=== PATIENT | female | born 1980 | race Caucasian/White ===

== ENCOUNTER → 2017-10-16 13:54 | Outpatient (CLI) | payer MEDICARE, MEDICAID, SELFPAY ==
[2017-10-16 14:52] LABS: Abs Immature Grans 0.02 k/cumm (0.0-0.09); Absolute Basophil Count 0.03 k/cumm (0.0-0.2); Absolute Eosinophil Count 0.29 k/cumm (0.0-0.7); Absolute Lymphocyte Count 1.88 k/cumm (1.2-3.4); Absolute Monocyte Count 0.45 k/cumm (0.11-0.7); Absolute Neutrophil Count 8.32 k/cumm (1.2-6.7); Basophils % 0.3; Eosinophils % 2.6; HCT 42.4 % (36.0-46.0); HGB 14.5 g/dL (12.0-15.5); Immature Grans % 0.2; Lymphocytes % 17.1; Mean Corp. HGB Concentration 34.2 g/dL (32.0-36.0); Mean Corpuscular Hemoglobin 32.1 pg (27.0-33.0); Mean Corpuscular Volume 93.8 fL (80-95); Mean Platelet Volume 9.7 fL (8.0-11.0); Monocytes % 4.1; Neutrophils % 75.7; Platelet Count 337 x1000/uL (130-400); RBC 4.52 m/cumm (4.00-5.20); RBC Distribution Width 13.5 % (11.7-14.6); White Blood Cell Count 10.99 k/cumm (4.4-10.8)
== END ==
PROVIDERS: PCP Family Medicine; Visit Provider Nurse Practitioner Psychiatric/Mental Health
DX: F20.9 Schizophrenia, unspecified (principal); Z79.899 Other long term (current) drug therapy
CPT/HCPCS: 36415; 85025

== ENCOUNTER 2017-11-08 12:37 | Outpatient (REF) | payer MEDICARE, SELFPAY | END 2017-11-08 12:57 | LOC: NCHCN 12:37 | PROVIDERS: PCP Family Medicine; Visit Provider Family Medicine | DX: A09 Infectious gastroenteritis and colitis, unspecified (principal) | CPT/HCPCS: 87505 ==

== ENCOUNTER 2017-11-20 14:21 | Outpatient (CLI) | payer MEDICARE, MEDICAID, SELFPAY ==
[2017-11-20 14:56] LABS: Abs Immature Grans 0.02 k/cumm (0.0-0.09); Absolute Basophil Count 0.06 k/cumm (0.0-0.2); Absolute Eosinophil Count 0.21 k/cumm (0.0-0.7); Absolute Monocyte Count 0.67 k/cumm (0.11-0.7); Absolute Neutrophil Count 7.44 k/cumm (1.2-6.7); Basophils % 0.6; HCT 44.7 % (36.0-46.0); HGB 15.5 g/dL (12.0-15.5); Immature Grans % 0.2; Lymphocytes % 18.4; Mean Corp. HGB Concentration 34.7 g/dL (32.0-36.0); Mean Corpuscular Hemoglobin 32.4 pg (27.0-33.0); Mean Corpuscular Volume 93.3 fL (80-95); Monocytes % 6.5; Neutrophils % 72.3; Platelet Count 403 x1000/uL (130-400); RBC 4.79 m/cumm (4.00-5.20); RBC Distribution Width 14.2 % (11.7-14.6)
== END 2017-11-20 14:41 ==
PROVIDERS: PCP Family Medicine; Visit Provider Nurse Practitioner Psychiatric/Mental Health
DX: F20.9 Schizophrenia, unspecified (principal); Z79.899 Other long term (current) drug therapy
CPT/HCPCS: 36415; 85025

== ENCOUNTER 2017-12-19 11:00 | Outpatient (CLI) | payer MEDICARE, MEDICAID, SELFPAY ==
[2017-12-19 14:24] LABS: Abs Immature Grans 0.05 k/cumm (0.0-0.09); Absolute Basophil Count 0.04 k/cumm (0.0-0.2); Absolute Lymphocyte Count 1.61 k/cumm (1.2-3.4); Absolute Monocyte Count 0.61 k/cumm (0.11-0.7); Basophils % 0.3; Eosinophils % 0.9; HCT 45.8 % (36.0-46.0); HGB 15.6 g/dL (12.0-15.5); Immature Grans % 0.4; Lymphocytes % 11.5; Mean Corp. HGB Concentration 34.1 g/dL (32.0-36.0); Mean Corpuscular Hemoglobin 32.8 pg (27.0-33.0); Mean Corpuscular Volume 96.4 fL (80-95); Mean Platelet Volume 9.8 fL (8.0-11.0); Monocytes % 4.4; Neutrophils % 82.5; Platelet Count 359 x1000/uL (130-400); RBC 4.75 m/cumm (4.00-5.20); RBC Distribution Width 14.1 % (11.7-14.6); White Blood Cell Count 13.97 k/cumm (4.4-10.8)
[2017-12-19 14:30] LABS: Absolute Eosinophil Count 0.13 k/cumm (0.0-0.7); Absolute Neutrophil Count 11.53 k/cumm (1.2-6.7)
== END 2017-12-19 11:20 ==
PROVIDERS: PCP Family Medicine; Visit Provider Nurse Practitioner Psychiatric/Mental Health
DX: F20.9 Schizophrenia, unspecified (principal); Z79.899 Other long term (current) drug therapy
CPT/HCPCS: 36415; 85025

== ENCOUNTER 2017-12-28 12:54 | Emergency (ER) | payer MEDICARE, MEDICAID, SELFPAY ==
[2017-12-28 12:57] VITALS: BP 122/76; PULSE 126; RESP 20; TEMP 36.6; O2SAT 99
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
--- NOTE | 2017-12-28 13:38 | PDOC.ERCMPRO ---
Care Management Progress Note 12/28-Vimal was sent to the emergency department today as she is depressed. Per nursing, Vimal has fresh lacerations with minimal bleeding to her wrists. Please see nursing and provider note. Discussion with Dominga NOLASCO and nursing. Dominga has ordered a CPSO for patient. Dominga is concerned patient could potentially be a flight risk. Discussed emergent holding care plan. 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 History of paranoid schizophrenia and receives meds weekly from [facility]. Patients therapist is Daniel Duong. Patient was admitted to [facility] in July 2017 for an intentional drug overdose. Nruys from [facility] called in and stated once Vimal is medically cleared, she will come in and do an assessment and fax a referral to [place]. Terri states that [place] has a bed. Reviewed Care Plan with Vimal and she acknowledged understanding and in agreement. Care Plan distributed to appropriate Care Team members. Vimal Pimentel Emergent Holding Care Plan 12/28/17 1. Suicide Precautions 2. Patient to be in paper clothing 3. Comfort bath system for personal hygiene 4. No personal belongings in room 5. Finger foods only, may have metal spoon, nursing to account for post meals 6. May have phone privileges 7. Visitors at provider discretion 8. Supervised Bathroom Privileges 9. Patient to have one on one, licensed sitter, MARIO, MOLECULAR GENETIC PATHOLOGIST, carbon electrodes supervisor. 10. May have television if available 11. May have crayons, paper, and activities (if appropriate) from the Mental Health Activity Cart in ED This is a holding care plan only. This Care Plan will remain in effect until patient medically cleared and mental health is called in for evaluation. Once evaluation completed, huddle will be called and new care plan will be written.
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
[2017-12-28 13:45] LABS: Bilirubin Negative (Negative); Blood Negative (Negative); Clarity Clear; Glucose Negative (Negative); Ketones Negative (Negative); Leukocyte Esterase Negative (Negative); Nitrite Negative (Negative); Urobilinogen 0.2 EU/dL (Up TO 0.2)
--- NOTE | 2017-12-28 13:49 | CMPROGNOTE_ITS ---
Care Management Progress Note 12/28-Vimal was sent to the emergency department today as she is depressed. Per nursing, Vimal has fresh lacerations with minimal bleeding to her wrists. Please see nursing and provider note. Discussion with Dominga NOLASCO and nursing. Dominga has ordered a CPSO for patient. Dominga is concerned patient could potentially be a flight risk. Discussed emergent holding care plan. 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 History of paranoid schizophrenia and receives meds weekly from [facility]. Patients therapist is Daniel Duong. Patient was admitted to [facility] in July 2017 for an intentional drug overdose. Nurys from [facility] called in and stated once Vimal is medically cleared, she will come in and do an assessment and fax a referral to [facility]. Terri states that [facility] has a bed. Reviewed Care Plan with Vimal and she acknowledged understanding and in agreement. Care Plan distributed to appropriate Care Team members. Vimal Pimentel Emergent Holding Care Plan 12/28/17 1. Suicide Precautions 2. Patient to be in paper clothing 3. Comfort bath system for personal hygiene 4. No personal belongings in room 5. Finger foods only, may have metal spoon, nursing to account for post meals 6. May have phone privileges 7. Visitors at provider discretion 8. Supervised Bathroom Privileges 9. Patient to have one on one, licensed sitter, MARIO, CORE DRILL OPERATOR, chlorobutadiene scrubber operator. 10. May have television if available 11. May have crayons, paper, and activities (if appropriate) from the Mental Health Activity Cart in ED This is a holding care plan only. This Care Plan will remain in effect until patient medically cleared and mental health is called in for evaluation. Once evaluation completed, huddle will be called and new care plan will be written.
[2017-12-28 13:55] LABS: *AMPHETAMINES SCREEN URINE Negative (Negative); *BARBITURATES SCREEN URINE Negative (Negative); *BENZODIAZEPINES SCREEN URINE Negative (Negative); Cannabinoids THC Negative (Negative); Cocaine Screen,Urine Negative (Negative); METHADONE URINE SCREEN Negative (Negative); OPIATES URINE SCREEN Negative (Negative)
[2017-12-28 13:59] LABS: Tricyclic Antidepressants Negative (Negative)
--- NOTE | 2017-12-28 14:13 | NUR.NOTE ---
Nursing Note: Patient is awake in her room she was provided with a lunch on a safety tray.
[2017-12-28 14:18] LABS: Abs Immature Grans 0.02 k/cumm (0.0-0.09); Absolute Basophil Count 0.04 k/cumm (0.0-0.2); Absolute Eosinophil Count 0.08 k/cumm (0.0-0.7); Absolute Lymphocyte Count 1.35 k/cumm (1.2-3.4); Absolute Monocyte Count 0.52 k/cumm (0.11-0.7); Absolute Neutrophil Count 9.03 k/cumm (1.2-6.7); Basophils % 0.4; Eosinophils % 0.7; HGB 15.1 g/dL (12.0-15.5); Immature Grans % 0.2; Lymphocytes % 12.2; Mean Corp. HGB Concentration 34.3 g/dL (32.0-36.0); Mean Corpuscular Hemoglobin 32.8 pg (27.0-33.0); Mean Corpuscular Volume 95.4 fL (80-95); Mean Platelet Volume 9.5 fL (8.0-11.0); Monocytes % 4.7; Neutrophils % 81.8; Platelet Count 351 x1000/uL (130-400); RBC 4.61 m/cumm (4.00-5.20); RBC Distribution Width 13.8 % (11.7-14.6); White Blood Cell Count 11.04 k/cumm (4.4-10.8)
[2017-12-28 14:33] LABS: ALT 28 U/L (12-78); AST 16 U/L (15-37); Albumin 3.5 g/dL (3.4-5.0); Alkaline Phosphatase 153 U/L (46-116); Anion Gap 12.6 mmol/L (3-11); BUN 6 mg/dL (7-18); Bilirubin, Total 0.2 mg/dL (0.2-1.0); CO2 24.4 mmol/L (21.0-32.0); CREATININE 0.64 mg/dL (0.55-1.02); Chloride 104 mmol/L (98-107); Glucose 96 mg/dL (70-100); Potassium 3.8 mmol/L (3.5-5.1); Sodium 141 mmol/L (136-145); TSH 1.12 uIU/mL (0.358-3.74); Total Protein 6.6 g/dL (6.4-8.2)
[2017-12-28 14:54] LABS: ETHANOL BLOOD < 3.0 mg/dL (<3)
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
[2017-12-28 15:07] LABS: Acetaminophen < 2 ug/mL (10-30)
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
--- NOTE | 2017-12-28 16:45 | PDOC.ERCMPRO ---
- If Service Date Differs Date of service: 12/28/17 Time of Service: 16:45 Care Management Progress Note Vimal Pimentel; ER RM #9 12/28/17 VOLUNTARY FOR INPATIENT PSYCHIATRIC STABILIZATION. Vimal has been cooperative and appropriate in all interactions since arriving at [facility]. She has demonstrated appropriate coping and communication skills, has articulated her needs and concerns and is fully engaged during staff interactions. Vimal has multiple cuts to her anterior right wrist which have been cleaned and wrapped. Dyana?s car is parked in the lower [facility] parking lot. Her multiple bags of belongings are at the ER staff desk and should be transported with her when she discharges. Vimal will transport via [employer]. Huddle Participants: CONSTANCE Orr, Laura, VU CHAUHAN, Mireya, Nursing Region Manager, APPLE Murray. Time and Date: 163912/28/2017 Safety plan has been established with patient and care team to adhere to patient goals, identify restrictions based on behavioral status, address nutrition, and determine allowed personal belongings, tools for hygiene, and personal care. Levels of activity including ambulation, supervision, visitors, and privileges based on behaviors and level of engagement by patient to be determined. SAFETY PLAN: 1. Suicide Precautions and in paper clothes. 2. Will remain in room under direct supervision of one-on-one staff at all times provided by MARIO, GIN gear repair supervisor. 3. Comfort bath system for personal hygiene. 4. No personal belongings in room. 5. May have paper cups, plates, and finger foods. 6.May have supervised phone privileges with Liz Patterson. 7.Visitors at provider discretion. 8.Supervised bathroom privileges. 9.May have ER Tablet and nicotrol inhaler. 10.May have crayons, paper, and activities (if appropriate) from the Mental Health Activity Cart in ED. 11. Follow [facility] Management of the Admitted Behavioral Health Patient policy printed and attached to the safety plan in physical chart. [facility] will be coordinating placement at inpatient facility. Patient is currently voluntarily at [facility] and seeking inpatient admission when a bed becomes available. [facility] Frontline Nurse Transition will continue seeking placement. Please contact the On-Call Shovel Handle Assembler ([phone]) and [facility] Nurse Transition ([phone]) for any needed changes in the Safety Plan. Safety plan has been provided to interdepartmental care team including Clinical Coordinator, Nursing Region Manager. - MH Services (Omit if N/A) Current MH Services: Psychiatric Inp
--- NOTE | 2017-12-28 16:48 | CMPROGNOTE_ITS ---
- If Service Date Differs Date of service: 12/28/17 Time of Service: 16:45 Care Management Progress Note Vimal Pimentel; ER RM #9 12/28/17 VOLUNTARY FOR INPATIENT PSYCHIATRIC STABILIZATION. Vimal has been cooperative and appropriate in all interactions since arriving at [facility]. She has demonstrated appropriate coping and communication skills, has articulated her needs and concerns and is fully engaged during staff interactions. Vimal has multiple cuts to her anterior right wrist which have been cleaned and wrapped. Dyana?s car is parked in the lower [facility] parking lot. Her multiple bags of belongings are at the ER staff desk and should be transported with her when she discharges. Vimal will transport via [employer]. Huddle Participants: CONSTANCE Orr, Laura, VU CHAUHAN, Mireya, Nursing Color Corrector, APPLE Murray. Time and Date: 163912/28/2017 Safety plan has been established with patient and care team to adhere to patient goals, identify restrictions based on behavioral status, address nutrition, and determine allowed personal belongings, tools for hygiene, and personal care. Levels of activity including ambulation, supervision, visitors, and privileges based on behaviors and level of engagement by patient to be determined. SAFETY PLAN: 1. Suicide Precautions and in paper clothes. 2. Will remain in room under direct supervision of one-on-one staff at all times provided by MARIO, GIN electronic coils supervisor. 3. Comfort bath system for personal hygiene. 4. No personal belongings in room. 5. May have paper cups, plates, and finger foods. 6.May have supervised phone privileges with Liz Patterson. 7.Visitors at provider discretion. 8.Supervised bathroom privileges. 9.May have ER Tablet and nicotrol inhaler. 10.May have crayons, paper, and activities (if appropriate) from the Mental Health Activity Cart in ED. 11. Follow [facility] Management of the Admitted Behavioral Health Patient policy printed and attached to the safety plan in physical chart. [facility] will be coordinating placement at inpatient facility. Patient is currently voluntarily at [facility] and seeking inpatient admission when a bed becomes available. [facility] Frontline Environmental Health Physician will continue seeking placement. Please contact the On-Call Milk And Cream Grader ([phone]) and [facility] Environmental Health Physician ([phone]) for any needed changes in the Safety Plan. Safety plan has been provided to interdepartmental care team including Clinical Coordinator, Nursing Color Corrector. - MH Services (Omit if N/A) Current MH Services: Psychiatric Inp
--- NOTE | 2017-12-28 19:35 | CMPROGNOTE_ITS ---
- If Service Date Differs Date of service: 12/28/17 Time of Service: 19:34 Care Management Progress Note Vimal Pimentel; ER RM #9 12/28/17 VOLUNTARY FOR INPATIENT PSYCHIATRIC STABILIZATION. Vimal has been cooperative and appropriate in all interactions since arriving at [facility]. She has demonstrated appropriate coping and communication skills, has articulated her needs and concerns and is fully engaged during staff interactions. Vimal has multiple cuts to her anterior right wrist which have been cleaned and wrapped. Dyana?s car is parked in the lower [facility] parking lot. Her multiple bags of belongings are at the ER staff desk and should be transported with her when she discharges. Vimal will transport via [employer]. Huddle Participants: CONSTANCE Orr, Laura, VU CHAUHAN, Mireya, Nursing Jacquard Loom Weaver, APPLE Murray. Time and Date: 1640 12/28/2017 Safety plan has been established with patient and care team to adhere to patient goals, identify restrictions based on behavioral status, address nutrition, and determine allowed personal belongings, tools for hygiene, and personal care. Levels of activity including ambulation, supervision, visitors, and privileges based on behaviors and level of engagement by patient to be determined. SAFETY PLAN: 1. Suicide Precautions and in paper clothes. 2. Will remain in room under direct supervision of one-on-one staff at all times provided by MARIO, GIN scheduler conveyor. 3. Comfort bath system for personal hygiene. 4. No personal belongings in room. 5. May have paper cups, plates, and finger foods. 6.May have supervised phone privileges with Liz Patterson. 7.Visitors at provider discretion. 8.Supervised bathroom privileges. 9.May have ER Tablet with headphones and nicotrol inhaler at provider discretion. 10.May have crayons, paper, and activities (if appropriate) from the Mental Health Activity Cart in ED. 11. Follow [facility] Management of the Admitted Behavioral Health Patient policy printed and attached to the safety plan in physical chart. [facility] will be coordinating placement at inpatient facility. Patient is currently voluntarily at [facility] and seeking inpatient admission when a bed becomes available. [facility] Frontline Business Unit Director will continue seeking placement. Please contact the On-Call Internet Sourcer ([phone]) and [facility] Business Unit Director ([phone]) for any needed changes in the Safety Plan. Safety plan has been provided to interdepartmental care team including Clinical Coordinator, Nursing Jacquard Loom Weaver. - MH Services (Omit if N/A) Current MH Services: Psychiatric Inp
--- NOTE | 2017-12-28 19:59 | NUR.NOTE ---
Nursing Note: Patient continues to be observed 1:1. She has been fed supper and has been cooperative. She is listening to music VIA the ER tablet. She denies any needs at this point.
[2017-12-28 21:29] VITALS: BP 114/71; PULSE 110; RESP 16; TEMP 36.4; O2SAT 110
== END 2017-12-28 21:30 | disposition short-term general hospital (02) ==
PROVIDERS: Physician Assistant; Emergency Provider Nurse Practitioner Family; PCP Family Medicine
DX: F32.9 Major depressive disorder, single episode, unspecified (principal); R45.851 Suicidal ideations
CPT/HCPCS: 36415; 80053; 80307; 81025; 99285; 80320; 80329; 81003; 84443; 85025

== ENCOUNTER 2018-02-15 15:13 | Outpatient (CLI) | payer MEDICARE, MEDICAID, SELFPAY ==
[2018-02-15 15:46] LABS: Abs Immature Grans 0.02 k/cumm (0.0-0.09); Absolute Basophil Count 0.05 k/cumm (0.0-0.2); Absolute Eosinophil Count 0.22 k/cumm (0.0-0.7); Absolute Lymphocyte Count 2.15 k/cumm (1.2-3.4); Absolute Monocyte Count 0.56 k/cumm (0.11-0.7); Absolute Neutrophil Count 5.66 k/cumm (1.2-6.7); Basophils % 0.6; Eosinophils % 2.5; HCT 38.6 % (36.0-46.0); HGB 13.3 g/dL (12.0-15.5); Immature Grans % 0.2; Lymphocytes % 24.8; Mean Corp. HGB Concentration 34.5 g/dL (32.0-36.0); Mean Corpuscular Hemoglobin 32.2 pg (27.0-33.0); Mean Corpuscular Volume 93.5 fL (80-95); Mean Platelet Volume 9.1 fL (8.0-11.0); Monocytes % 6.5; Neutrophils % 65.4; Platelet Count 331 x1000/uL (130-400); RBC 4.13 m/cumm (4.00-5.20); White Blood Cell Count 8.66 k/cumm (4.4-10.8)
== END 2018-02-15 15:33 ==
PROVIDERS: PCP Family Medicine; Visit Provider Nurse Practitioner Psychiatric/Mental Health
DX: F20.9 Schizophrenia, unspecified (principal); Z79.899 Other long term (current) drug therapy
CPT/HCPCS: 36415; 85025

== ENCOUNTER 2018-03-12 15:55 | Emergency (ER) | payer MEDICARE, MEDICAID, SELFPAY ==
--- NOTE | 2018-03-12 16:24 | W.ED.GENAD ---
Discharge Plan Disposition Patient Disposition: [facility] Condition: Serious Discharge Details Chief Complaint: PsychEval Clinical Impression: Suicidal ideation Primary Care Provider: Moo Robles ED Provider: Dominga Brock Home Meds and New Rx's Prescriptions: Continued lamotrigine 150 MG tablet 225 mg PO DAILY RF: 0 clozapine 100 MG tablet 450 mg PO HS RF: 0 trazodone 50 MG tablet 50 mg PO HS RF: 0 docusate sodium [Colace] 100 MG capsule 100 mg PO DAILY RF: 0 hydroxyzine HCl 25 MG tablet 25 mg PO BID PRN PRNRF: 0 acetaminophen [Tylenol] 325 MG tablet 650 mg PO Q4H PRN PRNRF: 0 Discharge Instructions Additional Instructions: You are being transferred from here to [facility] for continued psychiatric care. Referrals: Moo Robles [Primary Care Provider] - Medical Decision Making Patient is a 38-year-old female presenting today with chief complaint of suicidal ideation. Patient has attempted suicide in the past. She has set plan of overdose. Will obtain baseline labs and consult mental health. Patient does have a multitude of horizontal superficial lacerations to the right forearm, 2 to the left. She does have 2 deeper vertical wounds over the right forearm. These all appear to be healing well without any signs of infection. Wounds appear consistent with patient's history of not cutting over the past week. Patient will remain under CPS O observation Consulted with mental health evaluated the patient feels that she is inpatient hospitalization is appropriate at this time. Referrals are being sent Patient accepted at [facility] for inpatient psychiatric care. I contacted nursing staff and gave report to Charlette. Patient has remained comfortable, cooperative and is invested in continued care. Accepting physician Dr. Duong. Discussed plan with patient, she is in agreement with this plan. Patient transferred to [facility] via grand jury deputy sheriff. HPI General Mode of arrival: ambulatory. Date/Time Provider Initiated Documentation: 03/12/18 16:16. Limitations to Documentation: no limitations. Information obtained by: patient. HPI Narrative: Patient is a 38 year old female presenting today with c/c of suicidality. Patient has attempted and has been hospitalized historically. She was last seen by myself in 12/21 at which time she was hospitalized with suicidal ideation. She reprots that over the past 2 days she has had increasing thoughts of self harm and suicidal ideation. Reports I want to drive around, find a nice spot and overdose or cut myself. She reports that she has cut without suicidal intent previously, last time was one week ago. She states now she wants to kill herself by cutting. Has spoken with her case investigator about this who advised she come here. Denies any hallucinations. Denies any thoughts of harming others or homicidal ideation Related Data Home Medications Medication Instructions Recorded Confirmed clozapine 450 mg PO HS 07/11/12 03/12/18 lamotrigine 225 mg PO DAILY 07/11/12 03/12/18 docusate sodium [Colace] 100 mg PO DAILY 07/23/17 03/12/18 hydroxyzine HCl 25 mg PO BID PRN PRN 07/23/17 03/12/18 trazodone 50 mg PO HS 07/23/17 03/12/18 acetaminophen [Tylenol] 650 mg PO Q4H PRN PRN tab 07/24/17 03/12/18 Previous Rx's Medication Instructions Recorded acetaminophen [Tylenol] 650 mg PO Q4H PRN PRN tab 07/24/17 Allergies Allergy/AdvReac Type Severity Reaction Status Date / Time niacin Allergy Intermediate Skin Rash Unverified 12/28/17 13:02 [From [facility] Extended-Release] Penicillins AdvReac Mild RESTLESS Unverified 12/28/17 13:02 General NOLA: 2 Review of Systems Constitutional Reports as per HPI, Denies chills, Denies fatigue, Denies fever(s), Denies headache(s) and Denies weakness Eyes Denies change in vision ENT Denies headache(s) Cardiovascular Reports as per HPI, Denies chest pain, Denies lightheadedness, Denies dyspnea and Denies dyspnea on exertion Respiratory Denies dyspnea and Denies dyspnea on exertion Gastrointestinal Reports as per HPI, Denies abdominal pain, Denies change in bowel habits, Denies nausea and Denies vomiting Musculoskeletal Denies abnormal gait Integumentary/Breasts Reports as per HPI and Reports wounds (patient endorses superficial cutting to bilateral anterior forearms ) Neurologic Denies abnormal gait, Denies headache(s) and Denies weakness Psychiatric Reports abnormal sleep pattern (sleeping more), Reports anxiety, Reports change in appetite (diminished), Reports depression, Denies auditory hallucinations, Reports hopelessness, Denies irritability, Denies paranoia, Denies visual hallucinations, Denies hallucinations, Denies homicidal ideation and Reports suicidal ideation (with plan) Endocrine Denies fatigue [facility] Social History Smoking/Tobacco Use Status: Current every day Exam Const General: cooperative, healthy appearing, comfortable, no acute distress, well developed and well groomed Nutritional Appearance: average body habitus and well nourished Orientation: alert and awake Eyes General: appearance normal, both eyes and all related structures Resp Effort & Inspection: normal respiratory effort, able to speak in complete sentences and no respiratory distress Auscultation: clear to auscultation bilaterally, no rales, no rhonchi and no wheezes Cardio Rate: regular rate Rhythm: regular rhythm Heart Sounds: S1 normal and S2 normal Skin General skin exam: no erythema, no fluctuance and no induration Trauma: laceration (patient has a multitude of superficial abrasions bilateral forearms) Neuro General: alert and awake Cognition: normal cognition Speech: speech normal Gait: normal gait
--- NOTE | 2018-03-12 16:27 | ED.GENADUL_ITS ---
Discharge Plan Disposition Patient Disposition: [facility] Condition: Serious Discharge Details Chief Complaint: PsychEval Clinical Impression: Suicidal ideation Primary Care Provider: Moo Robles ED Provider: Dominga Brock Home Meds and New Rx's Prescriptions: Continued lamotrigine 150 MG tablet 225 mg PO DAILY RF: 0 clozapine 100 MG tablet 450 mg PO HS RF: 0 trazodone 50 MG tablet 50 mg PO HS RF: 0 docusate sodium [Colace] 100 MG capsule 100 mg PO DAILY RF: 0 hydroxyzine HCl 25 MG tablet 25 mg PO BID PRN PRNRF: 0 acetaminophen [Tylenol] 325 MG tablet 650 mg PO Q4H PRN PRNRF: 0 Discharge Instructions Additional Instructions: You are being transferred from here to [facility] for continued psychiatric care. Referrals: Moo Robles [Primary Care Provider] - Medical Decision Making Patient is a 38-year-old female presenting today with chief complaint of suicidal ideation. Patient has attempted suicide in the past. She has set plan of overdose. Will obtain baseline labs and consult mental health. Patient does have a multitude of horizontal superficial lacerations to the right forearm, 2 to the left. She does have 2 deeper vertical wounds over the right forearm. These all appear to be healing well without any signs of infection. Wounds appear consistent with patient's history of not cutting over the past week. Patient will remain under CPS O observation Consulted with mental health evaluated the patient feels that she is inpatient hospitalization is appropriate at this time. Referrals are being sent Patient accepted at [facility] for inpatient psychiatric care. I contacted nursing staff and gave report to Charlette. Patient has remained comfortable, cooperative and is invested in continued care. Accepting physician Dr. Duong. Discussed plan with patient, she is in agreement with this plan. Patient transferred to [facility] via global analytics head. HPI General Mode of arrival: ambulatory . Date/Time Provider Initiated Documentation: 03/12/18 16:16 . Limitations to Documentation: no limitations . Information obtained by: patient . HPI Narrative: Patient is a 38 year old female presenting today with c/c of suicidality. Patient has attempted and has been hospitalized historically. She was last seen by myself in 12/21 at which time she was hospitalized with suicidal ideation. She reprots that over the past 2 days she has had increasing thoughts of self harm and suicidal ideation. Reports I want to drive around, find a nice spot and overdose or cut myself. She reports that she has cut without suicidal intent previously, last time was one week ago. She states now she wants to kill herself by cutting. Has spoken with her major case detective about this who advised she come here. Denies any hallucinations. Denies any thoughts of harming others or homicidal ideation Related Data Home Medications Medication Instructions Recorded Confirmed clozapine 450 mg PO HS 07/11/12 03/12/18 lamotrigine 225 mg PO DAILY 07/11/12 03/12/18 docusate sodium [Colace] 100 mg PO DAILY 07/23/17 03/12/18 hydroxyzine HCl 25 mg PO BID PRN PRN 07/23/17 03/12/18 trazodone 50 mg PO HS 07/23/17 03/12/18 acetaminophen [Tylenol] 650 mg PO Q4H PRN PRN tab 07/24/17 03/12/18 Previous Rx's Medication Instructions Recorded acetaminophen [Tylenol] 650 mg PO Q4H PRN PRN tab 07/24/17 Allergies Allergy/AdvReac Type Severity Reaction Status Date / Time niacin Allergy Intermediate Skin Rash Unverified 12/28/17 13:02 [From [facility]iaspan Extended-Release] Penicillins AdvReac Mild RESTLESS Unverified 12/28/17 13:02 General NOLA: 2 Review of Systems Constitutional Reports as per HPI, Denies chills, Denies fatigue, Denies fever(s), Denies headache(s) and Denies weakness Eyes Denies change in vision ENT Denies headache(s) Cardiovascular Reports as per HPI, Denies chest pain, Denies lightheadedness, Denies dyspnea and Denies dyspnea on exertion Respiratory Denies dyspnea and Denies dyspnea on exertion Gastrointestinal Reports as per HPI, Denies abdominal pain, Denies change in bowel habits, Denies nausea and Denies vomiting Musculoskeletal Denies abnormal gait Integumentary/Breasts Reports as per HPI and Reports wounds (patient endorses superficial cutting to bilateral anterior forearms ) Neurologic Denies abnormal gait, Denies headache(s) and Denies weakness Psychiatric Reports abnormal sleep pattern (sleeping more), Reports anxiety, Reports change in appetite (diminished), Reports depression, Denies auditory hallucinations, Reports hopelessness, Denies irritability, Denies paranoia, Denies visual hallucinations, Denies hallucinations, Denies homicidal ideation and Reports suicidal ideation (with plan) Endocrine Denies fatigue [facility] Social History Smoking/Tobacco Use Status: Current every day Exam Const General: cooperative, healthy appearing, comfortable, no acute distress, well developed and well groomed Nutritional Appearance: average body habitus and well nourished Orientation: alert and awake Eyes General: appearance normal, both eyes and all related structures Resp Effort & Inspection: normal respiratory effort, able to speak in complete sentences and no respiratory distress Auscultation: clear to auscultation bilaterally, no rales, no rhonchi and no wheezes Cardio Rate: regular rate Rhythm: regular rhythm Heart Sounds: S1 normal and S2 normal Skin General skin exam: no erythema, no fluctuance and no induration Trauma: laceration (patient has a multitude of superficial abrasions bilateral forearms) Neuro General: alert and awake Cognition: normal cognition Speech: speech normal Gait: normal gait
[2018-03-12 16:32] VITALS: BP 110/73; PULSE 98; RESP 16; TEMP 37; O2SAT 98
[2018-03-12 17:04] LABS: Abs Immature Grans 0.01 k/cumm (0.0-0.09); Absolute Basophil Count 0.04 k/cumm (0.0-0.2); Absolute Eosinophil Count 0.16 k/cumm (0.0-0.7); Absolute Monocyte Count 0.44 k/cumm (0.11-0.7); Absolute Neutrophil Count 6.48 k/cumm (1.2-6.7); Basophils % 0.5; Eosinophils % 1.8; HCT 44.9 % (36.0-46.0); HGB 15.4 g/dL (12.0-15.5); Immature Grans % 0.1; Lymphocytes % 19.3; Mean Corp. HGB Concentration 34.3 g/dL (32.0-36.0); Mean Corpuscular Hemoglobin 32.8 pg (27.0-33.0); Mean Corpuscular Volume 95.5 fL (80-95); Mean Platelet Volume 9.1 fL (8.0-11.0); Neutrophils % 73.3; Platelet Count 386 x1000/uL (130-400); RBC Distribution Width 13.8 % (11.7-14.6); White Blood Cell Count 8.83 k/cumm (4.4-10.8)
--- NOTE | 2018-03-12 17:15 | PDOC.MHCN ---
Date of service: 03/12/18 Time of Service: 17:15 Mental Health Crisis Note Presenting Issue How did you arrive at the ED and why did you come: Ms. Pimentel arrived at the ED by herself , she has been persistently and chronically mentally ill with increased suicidal ideation over the past several weeks. She is here for an evaluation and placement to a psychiatric facility for care. Precipitating Factors This is a 38 yo female with a history of cutting and overdosing on her psychotropic medication. She most recently had been in [facility] for a month and has been in community for several weeks. She has been to the ER for suicidal ideation and cutting. She states her reason is that I can't stand to live with myself. Disposition BEHAVIOR: Today her behavior is cooperative, friendly and withdrawn. EYE CONTACT: She sonsistently makes eye contact. MOOD: Her mood is very depressed, dysphoric and tense. AFFECT: Her affect is flat, however she can and does make some smiles and she has some displaced humor about her situation and her situation in the past. She makes jokes about some of the treatment she has received. APPETITE: Okay, but is not hungry at present. SLEEP(trouble falling/staying asleep: sleeps a lot recently. Plan She has been referred to ED by her family caseworker at [facility]. She has had many psychiatric placements and this situation of suicidal ideation and cutting persists . It has reached a cruicial level. She is on suicide watch and CONSTANCE Brock has been consulted and made her evaluation . The plan is to make referrals to psychiatric facility for placement when there is an available bed. Signature Clinician's Name/Title: Kandi Mendoza [facility] Emergency Radial Arm Saw Operator
--- NOTE | 2018-03-12 17:26 | PDOC.MHCN_ITS ---
Date of service: 03/12/18 Time of Service: 17:15 Mental Health Crisis Note Presenting Issue How did you arrive at the ED and why did you come: Ms. Pimetnel arrived at the ED by herself , she has been persistently and chronically mentally ill with increased suicidal ideation over the past several weeks. She is here for an evaluation and placement to a psychiatric facility for care. Precipitating Factors This is a 38 yo female with a history of cutting and overdosing on her psychotropic medication. She most recently had been in [facility] for a month and has been in community for several weeks. She has been to the ER for suicidal ideation and cutting. She states her reason is that I can't stand to live with myself. Disposition BEHAVIOR: Today her behavior is cooperative, friendly and withdrawn. EYE CONTACT: She sonsistently makes eye contact. MOOD: Her mood is very depressed, dysphoric and tense. AFFECT: Her affect is flat, however she can and does make some smiles and she has some displaced humor about her situation and her situation in the past. She makes jokes about some of the treatment she has received. APPETITE: Okay, but is not hungry at present. SLEEP(trouble falling/staying asleep: sleeps a lot recently. Plan She has been referred to ED by her case management coordinator at [facility] BEAD MACHINE OPERATOR program. She has had many psychiatric placements and this situation of suicidal ideation and cutting persists . It has reached a cruicial level. She is on suicide watch and CONSTANCE Brock has been consulted and made her evaluation . The plan is to make referrals to psychiatric facility for placement when there is an available bed. Signature Clinician's Name/Title: Kandi [facility]endoza [facility] Emergency Legal Advisor
[2018-03-12 17:29] LABS: ALT 26 U/L (12-78); AST 13 U/L (15-37); Albumin 4.1 g/dL (3.4-5.0); Alkaline Phosphatase 155 U/L (46-116); Anion Gap 7.5 mmol/L (3-11); BUN 12 mg/dL (7-18); Bilirubin, Total 0.2 mg/dL (0.2-1.0); CO2 28.5 mmol/L (21.0-32.0); CREATININE 0.71 mg/dL (0.55-1.02); Calcium 9.2 mg/dL (8.5-10.1); Chloride 103 mmol/L (98-107); Glucose 81 mg/dL (70-100); Sodium 139 mmol/L (136-145); TSH 1.51 uIU/mL (0.358-3.74); Total Protein 7.4 g/dL (6.4-8.2)
[2018-03-12 17:37] LABS: Salicylate 4.5 mg/dL (2.8-20.0)
[2018-03-12 17:44] LABS: Acetaminophen < 2 ug/mL (10-30)
[2018-03-12 17:51] LABS: ETHANOL BLOOD < 3.0 mg/dL (<3)
[2018-03-12 18:00] LABS: Bilirubin Negative (Negative); Blood Trace-intact (Negative); Clarity Clear; Glucose Negative (Negative); Ketones Negative (Negative); Leukocyte Esterase Negative (Negative); Nitrite Negative (Negative); Specific Gravity 1.015 (1.005-1.025); Urobilinogen 0.2 EU/dL (Up TO 0.2)
[2018-03-12 18:14] LABS: Bacteria Rare HPF (Negative); C & S Indicated? No; Casts Negative LPF (Negative); Crystals Negative HPF (Negative); Epithelial Cells Few HPF (Negative); Mucus Negative (Negative); RBC 0-2 (0-2); WBC 0-2 HPF (0-5)
[2018-03-12 18:18] LABS: *AMPHETAMINES SCREEN URINE Negative (Negative); *BARBITURATES SCREEN URINE Negative (Negative); *BENZODIAZEPINES SCREEN URINE Negative (Negative); Cannabinoids THC Negative (Negative); Cocaine Screen,Urine Negative (Negative); METHADONE URINE SCREEN Negative (Negative); OPIATES URINE SCREEN Negative (Negative)
[2018-03-12 18:19] LABS: Tricyclic Antidepressants Negative (Negative)
--- NOTE | 2018-03-12 19:13 | PDOC.ERCMPRO ---
- If Service Date Differs Date of service: 03/12/18 Time of Service: 19:13 Care Management Progress Note Vimal presents to [facility] this evening for suicidal ideation. She met with her piano case maker from RESIDENTIAL SOLAR CONSULTANT Deepali today at [facility] whom directed her to come to [facility] for clearance/placement. Vimal states that she is suicidal and that her plan would be to overdose or cut herself badly. Vimal has cuts on her arms from last week, and states that those cuts were not suicide attempts. Vimal sees Rasheeda Frye [facility], as well as Deepali [facility] RESIDENTIAL SOLAR CONSULTANT, whom support her in the community. Vimal has a history of suicidal ideation, and cutting as well as, schizophrenia, depression, and anxiety per Kandi [facility],. Kandi also states that Vimal was recently at [facility] for one month and has been home for 3 weeks. VOLUNTARY FOR INPATIENT PSYCHIATRIC STABILIZATION. Vimal is being cooperative and friendly during staff interactions. Upon this marine underwriter arriving at [facility] Vimal is sleeping, therefore this marine underwriter does not wake her at this time. Huddle Participants:Kandi JESSE, Victoria, VU, Brenda RN Spot Billing Clerk, CONSTANCE Leyva, TIEN Carter,. Time and Date: 03/12/18 @ 1900 Safety plan has been established with patient, and care team, to adhere to patient goals, identify restrictions based on behavioral status, address nutrition, and determine allowed personal belongings, tools for hygiene and personal care. Determine level of activity including ambulation, level of supervision, visitors, and determine privileges based on behaviors and level of engagement by pt. SAFETY PLAN: 1. Will remain on suicide precautions and in paper clothes. 2. Will remain in room under direct supervision of one-on-one staff at all times provided by GIN MARTIN tank builder supervisor. 3. May have paper cups, plates, finger foods as well as a metal spoon with which to eat meals. [facility] staff will be responsible for accounting of utensils after meals. 4. Follow [facility] Management of the Admitted Behavioral Health Patient policy. 5. Comfort bath system only. 6. No personal belongings 7. No visitors at this time. 8. Activities - may have paper and crayons 9. Due to voluntary status, if patient wishes to leave [facility], the [facility] machine farmworker must be contacted to re-evaluate patient prior to patient exiting the building. 10. Bathroom privileges - may go to the bathroom with staff escort. CPSO to stand outside bathroom. 11. To remain in ER at this time until a bed becomes available. Placement: Referrals have been faxed to [facility] at this time. Patient is currently voluntarily at [facility] and seeking inpatient admission when a bed becomes available. [facility] Frontline Skin Piler will continue seeking placement. Please contact the Coronary Clinical Specialist Needle Control Cheniller ([phone]) and [facility] Skin Piler ([phone]) for any needed changes in the Safety Plan. Safety plan has been provided to interdepartmental care team including Clinical Coordinator, Nursing Spot Billing Clerk.
--- NOTE | 2018-03-12 19:20 | CMPROGNOTE_ITS ---
- If Service Date Differs Date of service: 03/12/18 Time of Service: 19:13 Care Management Progress Note Vimal presents to [facility] this evening for suicidal ideation. She met with her telephonic nurse case manager from GIFTS OFFICER Deepali today at [facility] whom directed her to come to [facility] for clearance/placement. Vimal states that she is suicidal and that her plan would be to overdose or cut herself badly. Vimal has cuts on her arms from last week, and states that those cuts were not suicide attempts. Vimal sees Rasheeda Frye [facility], as well as Deepali [facility] GIFTS OFFICER, whom support her in the community. Vimal has a history of suicidal ideation, and cutting as well as, schizophrenia, depression, and anxiety per Kandi [facility],. Kandi also states that Vimal was recently at [place] for one month and has been home for 3 weeks. VOLUNTARY FOR INPATIENT PSYCHIATRIC STABILIZATION. Vimal is being cooperat [place] and friendly during staff interactions. Upon this medical underwriter arriving at [facility] Vimal is sleeping, therefore this medical underwriter does not wake her at this time. Huddle Participants:Kandi JESSE, Victoria, VU, VU Gutierrez Manager Development, CONSTANCE Leyva, TIEN Carter,. Time and Date: 03/12/18 @ 1900 Safety plan has been established with patient, and care team, to adhere to patient goals, identify restrictions based on behavioral status, address nutrition, and determine allowed personal belongings, tools for hygiene and personal care. Determine level of activity including ambulation, level of superv ision, visitors, and determine privileges based on behaviors and level of engagement by pt. SAFETY PLAN: 1. Will remain on suicide precautions and in paper clothes. 2. Will remain in room under direct supervision of one-on-one staff at all times provided by GIN MARTIN superintendent horticulture. 3. May have paper cups, plates, finger foods as well as a metal spoon with which to eat meals. [facility] staff will be responsible for accounting of utensils after meals. 4. Follow [facility] Management of the Admitted Behavioral Health Patient policy. 5. Comfort bath system only. 6. No personal belongings 7. No visitors at this time. 8. Activities - may have paper and crayons 9. Due to voluntary status, if patient wishes to leave [facility], the [facility] heat treat worker must be contacted to re-evaluate patient prior to patient exiting the building. 10. Bathroom privileges - may go to the bathroom with staff escort. CPSO to stand outside bathroom. 11. To remain in ER at this time until a bed becomes available. Placement: Referrals have been faxed to [facility] at this time. Patient is currently voluntarily at [facility] and seeking inpatient admission when a bed becomes available. [facility] Frontline Grocery Deliverer will continue seeking placement. Please contact the Torpedoman'[employer] Mate Meat Grading Machine Operator ([phone]) and [facility] Grocery Deliverer ([phone]) for any needed changes in the Safety Plan. Safety plan has been provided to interdepartmental care team including Clinical Coordinator, Nursing Manager Development.
== END 2018-03-12 20:42 | disposition short-term general hospital (02) ==
PROVIDERS: Emergency Provider Physician Assistant; PCP Family Medicine
DX: R45.851 Suicidal ideations (principal); F32.9 Major depressive disorder, single episode, unspecified; Z91.5 Personal history of self-harm
CPT/HCPCS: 36415; 80053; 80307; 81025; 99285; 80320; 80329; 81003; 81015; 84443; 85025; 99284

== ENCOUNTER 2018-03-28 09:14 | Outpatient (CLI) | payer MEDICARE, MEDICAID, SELFPAY ==
[2018-03-28 12:44] LABS: Abs Immature Grans 0.03 k/cumm (0.0-0.09); Absolute Basophil Count 0.05 k/cumm (0.0-0.2); Absolute Lymphocyte Count 2.27 k/cumm (1.2-3.4); Absolute Monocyte Count 0.65 k/cumm (0.11-0.7); Absolute Neutrophil Count 5.95 k/cumm (1.2-6.7); Basophils % 0.5; Eosinophils % 2.2; HCT 43.2 % (36.0-46.0); HGB 14.9 g/dL (12.0-15.5); Immature Grans % 0.3; Lymphocytes % 24.8; Mean Corp. HGB Concentration 34.5 g/dL (32.0-36.0); Mean Corpuscular Hemoglobin 32.9 pg (27.0-33.0); Mean Corpuscular Volume 95.4 fL (80-95); Mean Platelet Volume 9.5 fL (8.0-11.0); Monocytes % 7.1; Neutrophils % 65.1; Platelet Count 330 x1000/uL (130-400); RBC 4.53 m/cumm (4.00-5.20); RBC Distribution Width 13.2 % (11.7-14.6); White Blood Cell Count 9.15 k/cumm (4.4-10.8)
== END 2018-03-28 09:34 ==
PROVIDERS: PCP Family Medicine; Visit Provider Nurse Practitioner Psychiatric/Mental Health
DX: F20.9 Schizophrenia, unspecified (principal); Z79.899 Other long term (current) drug therapy
CPT/HCPCS: 36415; 85025

== ENCOUNTER 2018-04-08 10:55 | Emergency (ER) | payer MEDICARE, MEDICAID, SELFPAY ==
[2018-04-08 10:59] VITALS: BP 99/45; PULSE 107; RESP 18; TEMP 36.3; O2SAT 97
--- NOTE | 2018-04-08 11:13 | ED.GENADUL_ITS ---
Discharge Plan Disposition Patient Disposition: HOME Condition: Improving Discharge Details Chief Complaint: GenMedical Clinical Impression: Fluid volume depletion Primary Care Provider: Moo Robles ED Provider: Silvino Morales Home Meds and New Rx's Prescriptions: Continued lamotrigine 150 MG tablet 225 mg PO DAILY RF: 0 clozapine 100 MG tablet 450 mg PO HS RF: 0 trazodone 50 MG tablet 50 mg PO HS RF: 0 docusate sodium [Colace] 100 MG capsule 100 mg PO DAILY RF: 0 hydroxyzine HCl 25 MG tablet 25 mg PO BID PRN PRNRF: 0 acetaminophen [Tylenol] 325 MG tablet 650 mg PO Q4H PRN PRNRF: 0 Discharge Instructions Additional Instructions: Home to rest today. Please follow up with [facility] human services as we discussed this week. Return to the emergency department for any acute concerns Medical Decision Making 38-year-old female presents from home feeling shaky, anxious, lightheaded. She has not had syncope, no chest pain, no shortness of breath. She does have a history of same and is appropriately medicated including Clozaril. Impression diagnosis includes anxiety, volume depletion, electrolyte abnormality and must exclude leukopenia given her medication. IV placed, patient given a fluid bolus and referred for laboratory testing. CBC unremarkable, chemistries reassuring. Patient improved following fluids. I will have her follow-up with her prescriber to review her psychiatric medications. She is stable and improved for discharge at this time Lab Data Lab results reviewed: Yes I reviewed the patient's lab results. Laboratory Results - last 24 hr 04/08/18 11:59 WBC 6.84 RBC 4.38 Hgb 14.5 Hct 42.6 MCV 97.3 H MCH 33.1 H MCHC 34.0 RDW 13.6 Plt Count 331 MPV 9.3 Immature Gran % 0.1 Neutrophils % 70.0 Lymphocytes % 20.5 Monocytes % 6.0 Eosinophils % 2.8 Basophils % 0.6 Absolute Neutrophils 4.79 Absolute Lymphocytes 1.40 Absolute Monocytes 0.41 Absolute Eosinophils 0.19 Absolute Basophils 0.04 HPI General Mode of arrival: ambulatory . Date/Time Provider Initiated Documentation: 04/08/18 11:06 . Limitations to Documentation: no limitations . Information obtained by: patient . History of Present Illness 38 year old F presents to the emergency department with the chief complaint of Shaky and feel lightheaded, similar to when I was taking too much Paxil, Quality is described as constant, and is localized to the head. Patient reports no radiation. Patient started experiencing this hour(s) and it has been constant. No relieving factors improve symptom(s), No exacerbating factors reported . Patient notes no other symptoms.. Patient did receive the following treatments prior to arrival, none Related Data Home Medications Medication Instructions Recorded Confirmed clozapine 450 mg PO HS 07/11/12 03/12/18 lamotrigine 225 mg PO DAILY 07/11/12 03/12/18 docusate sodium [Colace] 100 mg PO DAILY 07/23/17 03/12/18 hydroxyzine HCl 25 mg PO BID PRN PRN 07/23/17 03/12/18 trazodone 50 mg PO HS 07/23/17 03/12/18 acetaminophen [Tylenol] 650 mg PO Q4H PRN PRN tab 07/24/17 03/12/18 Previous Rx's Medication Instructions Recorded acetaminophen [Tylenol] 650 mg PO Q4H PRN PRN tab 07/24/17 Allergies Allergy/AdvReac Type Severity Reaction Status Date / Time niacin Allergy Intermediate Skin Rash Unverified 12/28/17 13:02 [From Niaspan Extended-Release] Penicillins AdvReac Mild RESTLESS Unverified 12/28/17 13:02 General Stated Complaint: GenMedical [place]: 4 Review of Systems Review of Systems 8 systems reviewed and otherwise negative [facility] Social History Smoking/Tobacco Use Status: Current every day Exam Narrative Exam Narrative: GEN: awake, alert, oriented 3. Pleasant, well groomed, interactive. HEAD: Normocephalic, atraumatic ENT: Mucous membranes moist, oropharynx unremarkable, External ear exam unremar kable EYES: PERRL, EOMI NECK: Full ROM, no BRIAN, no menigismus CHEST/RESP: Nontender, clear to auscultation bilateral, no wheeze/rhonchi/rales CARDIOVASCULAR: Tachycardic, regular, no murmur, rub elicia. 2+ Rad pulse bilateral ABDOMEN: Soft, nontender, no mass. +Bowel sounds EXT: Full ROM, no edema, no rash Neuro: Grossly normal neurologic exam, conversant, interactive. Psych: Speech fluent, thoughts congruent, affect normal Course Vital Signs Temperature 36.3 C L 04/08/18 10:59 Pulse 107 H 04/08/18 10:59 Respiratory Rate 18 04/08/18 10:59 Blood Pressure 99/45 L 04/08/18 10:59 Pulse Oximetry 97 04/08/18 10:59 Temperature 36.3 C L 04/08/18 10:59 Temperature Source Temporal Artery Scan 04/08/18 10:59 Pulse 107 H 04/08/18 10:59 Respiratory Rate 18 04/08/18 10:59 Respiratory Effort 04/08/18 11:08 Respiratory Depth Normal 04/08/18 11:03 Blood Pressure 99/45 L 04/08/18 10:59 Pulse Oximetry 97 04/08/18 10:59 Oxygen Delivery Method Room Air 04/08/18 10:59 Oxygen Flow Rate 0 04/08/18 10:59 Pain Level 0 04/08/18 10:59
[2018-04-08] MEDS: Normal Saline 1,000 ML 1000 ML IV (12:05)
[2018-04-08 12:18] LABS: Bilirubin Negative (Negative); Blood Moderate (Negative); Clarity Clear; Glucose Negative (Negative); Ketones Negative (Negative); Leukocyte Esterase Negative (Negative); Nitrite Negative (Negative); Urobilinogen 0.2 EU/dL (Up TO 0.2); pH 6.5 (5-8)
[2018-04-08 12:21] LABS: Abs Immature Grans 0.01 k/cumm (0.0-0.09); Absolute Basophil Count 0.04 k/cumm (0.0-0.2); Absolute Eosinophil Count 0.19 k/cumm (0.0-0.7); Absolute Monocyte Count 0.41 k/cumm (0.11-0.7); Absolute Neutrophil Count 4.79 k/cumm (1.2-6.7); Basophils % 0.6; Eosinophils % 2.8; HCT 42.6 % (36.0-46.0); HGB 14.5 g/dL (12.0-15.5); Immature Grans % 0.1; Lymphocytes % 20.5; Mean Corpuscular Hemoglobin 33.1 pg (27.0-33.0); Mean Corpuscular Volume 97.3 fL (80-95); Mean Platelet Volume 9.3 fL (8.0-11.0); Platelet Count 331 x1000/uL (130-400); RBC 4.38 m/cumm (4.00-5.20); RBC Distribution Width 13.6 % (11.7-14.6); White Blood Cell Count 6.84 k/cumm (4.4-10.8)
[2018-04-08 12:22] VITALS: BP 100/67; PULSE 76; RESP 16; O2SAT 98
[2018-04-08] MEDS: Normal Saline Flush 10 ML SYR IVP (12:25)
[2018-04-08 12:33] LABS: ALT 32 U/L (12-78); AST 20 U/L (15-37); Albumin 3.7 g/dL (3.4-5.0); Alkaline Phosphatase 107 U/L (46-116); Anion Gap 8.9 mmol/L (3-11); BUN 9 mg/dL (7-18); Bilirubin, Total 0.2 mg/dL (0.2-1.0); CO2 26.1 mmol/L (21.0-32.0); Calcium 9.3 mg/dL (8.5-10.1); Chloride 105 mmol/L (98-107); Glucose 82 mg/dL (70-100); Potassium 3.6 mmol/L (3.5-5.1); Sodium 140 mmol/L (136-145); Total Protein 6.8 g/dL (6.4-8.2)
[2018-04-08 12:54] VITALS: BP 106/90; PULSE 86; RESP 16; O2SAT 97
[2018-04-08 13:18] LABS: Epithelial Cells Rare HPF (Negative); RBC 0-2 (0-2); WBC Negative HPF (0-5)
[2018-04-08 13:19] LABS: Bacteria Rare HPF (Negative); C & S Indicated? No; Casts Negative LPF (Negative); Crystals Negative HPF (Negative); Mucus Negative (Negative); Other Cells Negative (Negative)
[2018-04-08 18:20] VITALS: BP 106/90; PULSE 86; RESP 16; TEMP 36.3; O2SAT 97
== END 2018-04-08 13:07 | disposition home or self-care (01) ==
PROVIDERS: Emergency Provider Emergency Medicine; PCP Family Medicine
DX: F41.9 Anxiety disorder, unspecified (principal); R42 Dizziness and giddiness; E86.9 Volume depletion, unspecified
CPT/HCPCS: 36415; 80053; 96360; 99284; 81003; 81015; 85025; 99283

== ENCOUNTER 2018-04-18 19:50 | Emergency (ER) | payer MEDICARE, MEDICAID, SELFPAY ==
--- NOTE | 2018-04-18 20:12 | W.ED.GENAD ---
Discharge Plan Disposition Patient Disposition: HOME Condition: Improving Discharge Details Chief Complaint: PsychEval Clinical Impression: Superficial laceration, Passive suicidal ideations Primary Care Provider: Moo Robles ED Provider: iSlvino Morales Home Meds and New Rx's Prescriptions: Continued lamotrigine 150 MG tablet 175 mg PO DAILY RF: 0 clozapine 100 MG tablet 450 mg PO HS RF: 0 trazodone 50 MG tablet 50 mg PO HS RF: 0 docusate sodium [Colace] 100 MG capsule 100 mg PO DAILY RF: 0 hydroxyzine HCl 25 MG tablet 25 mg PO TID PRN PRNRF: 0 acetaminophen [Tylenol] 325 MG tablet 650 mg PO Q4H PRN PRNRF: 0 Discharge Instructions Instructions: Depression (ED), Suicide Prevention for Adults (ED) Additional Instructions: Apply bacitracin once to twice daily for 3 days to area of damaged skin. You have made a plan for outpatient follow-up tomorrow in conjunction with David the mental health worker. Return at any time for reevaluation if your mood changes or you have any new acute concerns. Continue all regular medications.. Medical Decision Making 30-year-old female presents complaining of pression with suicidal ideation. She denies any inciting event. She states that she has recently been well. She did perform some superficial cutting on her right forearm. She states her tetanus is up-to-date. She arrives stable. Medical screening examination including laboratory analysis performed; wound cleansed and dressed with bacitracin which I would recommend times 3 days and then left to dry. Interviewed in the ED by mental health services; a plan for outpatient mental health establishment tomorrow was made and patient to be discharged with family friends. Lab Data Lab results reviewed: Yes I reviewed the patient's lab results. Laboratory Results - last 24 hr 04/18/18 04/18/18 04/18/18 20:10 20:10 20:30 WBC RBC Hgb Hct MCV MCH MCHC RDW Plt Count MPV Immature Gran % Neutrophils % Lymphocytes % Monocytes % Eosinophils % Basophils % Absolute Neutrophils Absolute Lymphocytes Absolute Monocytes Absolute Eosinophils Absolute Basophils Sodium 140 Potassium 3.4 L Chloride 103 Carbon Dioxide 25.7 Anion Gap 11.3 H BUN 8 Creatinine 0.74 Estimated GFR/1.73 m2 >= 60.00 Glucose 100 Calcium 9.3 Total Bilirubin 0.1 L AST 15 ALT 25 Alkaline Phosphatase 114 Total Protein 7.1 Albumin 4.0 TSH 3.35 Urine Color Yellow Urine Clarity Clear Urine pH 7.0 Ur Specific [place] 1.015 Urine Protein Negative Urine Ketones Trace H Urine Blood Trace-intact H Urine Nitrite Negative Urine Bilirubin Negative Urine Urobilinogen 0.2 Ur Leukocyte Esterase Negative Urine RBC 0-2 Urine WBC Negative Ur Epithelial Cells Rare Urine Crystals Negative Urine Bacteria Rare Urine Casts Negative Urine Mucus Negative Urine Other Negative Ur Culture Indicated? No Urine Glucose Negative Urine Opiates Screen Negative Urine Methadone Screen Negative Ur Barbiturates Screen Negative Ur Tricyclics Screen Positive Ur Amphetamines Screen Negative U Benzodiazepines Scrn Negative Urine Cocaine Screen Negative Ur THC Screen Negative Ethyl Alcohol < 3.0 04/18/18 20:30 WBC 9.67 RBC 4.39 Hgb 14.4 Hct 42.0 MCV 95.7 H MCH 32.8 MCHC 34.3 RDW 13.2 Plt Count 319 MPV 9.1 Immature Gran % 0.2 Neutrophils % 75.4 Lymphocytes % 16.3 Monocytes % 6.5 Eosinophils % 1.1 Basophils % 0.5 Absolute Neutrophils 7.28 H Absolute Lymphocytes 1.58 Absolute Monocytes 0.63 Absolute Eosinophils 0.11 Absolute Basophils 0.05 Sodium Potassium Chloride Carbon Dioxide Anion Gap BUN Creatinine Estimated GFR/1.73 m2 Glucose Calcium Total Bilirubin AST ALT Alkaline Phosphatase Total Protein Albumin TSH Urine Color Urine Clarity Urine pH Ur Specific [place] Urine Protein Urine Ketones Urine Blood Urine Nitrite Urine Bilirubin Urine Urobilinogen Ur Leukocyte Esterase Urine RBC Urine WBC Ur Epithelial Cells Urine Crystals Urine Bacteria Urine Casts Urine Mucus Urine Other Ur Culture Indicated? Urine Glucose Urine Opiates Screen Urine Methadone Screen Ur Barbiturates Screen Ur Tricyclics Screen Ur Amphetamines Screen U Benzodiazepines Scrn Urine Cocaine Screen Ur THC Screen Ethyl Alcohol HPI General Mode of arrival: ambulatory. Date/Time Provider Initiated Documentation: 04/18/18 20:11. Limitations to Documentation: no limitations. Information obtained by: patient. History of Present Illness 38 year old F presents to the emergency department with the chief complaint of Suicidal ideation, described as moderate, Patient started experiencing this hour(s) and it has been constant. No relieving factors improve symptom(s), No exacerbating factors reported . Patient notes no other symptoms.. Patient did receive the following treatments prior to arrival, none Related Data Home Medications Medication Instructions Recorded Confirmed clozapine 450 mg PO HS 07/11/12 04/18/18 lamotrigine 175 mg PO DAILY 07/11/12 04/18/18 docusate sodium [Colace] 100 mg PO DAILY 07/23/17 04/18/18 hydroxyzine HCl 25 mg PO TID PRN PRN 07/23/17 04/18/18 trazodone 50 mg PO HS 07/23/17 04/18/18 acetaminophen [Tylenol] 650 mg PO Q4H PRN PRN tab 07/24/17 04/18/18 Previous Rx's Medication Instructions Recorded acetaminophen [Tylenol] 650 mg PO Q4H PRN PRN tab 07/24/17 Allergies Allergy/AdvReac Type Severity Reaction Status Date / Time niacin Allergy Intermediate Skin Rash Unverified 12/28/17 13:02 [From Niaspan Extended-Release] vilazodone [From Viibryd] AdvReac Intermediate Agitation Unverified 04/18/18 20:55 Penicillins AdvReac Mild RESTLESS Unverified 12/28/17 13:02 General Stated Complaint: PsychEval [place]: 2 Review of Systems Review of Systems 8 systems reviewed and otherwise - [facility] Social History Smoking and Tabacco status: Current every day Exam Narrative Exam Narrative: GEN: awake, alert, oriented 3. Pleasant, well groomed, interactive. HEAD: Normocephalic, atraumatic ENT: Mucous membranes moist, oropharynx unremarkable, External ear exam unremarkable EYES: PERRL, EOMI NECK: Full ROM, no BRIAN, no menigismus CHEST/RESP: Nontender, clear to auscultation bilateral, no wheeze/rhonchi/rales CARDIOVASCULAR: RRR, no murmur, rub elicia. 2+ Rad pulse bilateral ABDOMEN: Soft, nontender, no mass. +Bowel sounds EXT: Full ROM, no edema, no rash. Superficial excoriations and lacerations right volar forearm Neuro: Grossly normal neurologic exam, conversant, interactive. Psych: Speech fluent, thoughts congruent, affect flat
[2018-04-18 20:27] LABS: Bilirubin Negative (Negative); Blood Trace-intact (Negative); Clarity Clear; Glucose Negative (Negative); Ketones Trace mg/dL (Negative); Leukocyte Esterase Negative (Negative); Nitrite Negative (Negative); Specific Gravity 1.015 (1.005-1.025); Urobilinogen 0.2 EU/dL (Up TO 0.2)
[2018-04-18 20:36] LABS: Bacteria Rare HPF (Negative); C & S Indicated? No; Casts Negative LPF (Negative); Crystals Negative HPF (Negative); Epithelial Cells Rare HPF (Negative); Mucus Negative (Negative); Other Cells Negative (Negative); RBC 0-2 (0-2); WBC Negative HPF (0-5)
[2018-04-18 20:41] LABS: Abs Immature Grans 0.02 k/cumm (0.0-0.09); Absolute Basophil Count 0.05 k/cumm (0.0-0.2); Absolute Eosinophil Count 0.11 k/cumm (0.0-0.7); Absolute Lymphocyte Count 1.58 k/cumm (1.2-3.4); Absolute Monocyte Count 0.63 k/cumm (0.11-0.7); Absolute Neutrophil Count 7.28 k/cumm (1.2-6.7); Basophils % 0.5; Eosinophils % 1.1; HGB 14.4 g/dL (12.0-15.5); Immature Grans % 0.2; Lymphocytes % 16.3; Mean Corp. HGB Concentration 34.3 g/dL (32.0-36.0); Mean Corpuscular Hemoglobin 32.8 pg (27.0-33.0); Mean Corpuscular Volume 95.7 fL (80-95); Mean Platelet Volume 9.1 fL (8.0-11.0); Monocytes % 6.5; Neutrophils % 75.4; Platelet Count 319 x1000/uL (130-400); RBC 4.39 m/cumm (4.00-5.20); RBC Distribution Width 13.2 % (11.7-14.6); White Blood Cell Count 9.67 k/cumm (4.4-10.8)
[2018-04-18 20:59] LABS: *AMPHETAMINES SCREEN URINE Negative (Negative); *BARBITURATES SCREEN URINE Negative (Negative); *BENZODIAZEPINES SCREEN URINE Negative (Negative); Cannabinoids THC Negative (Negative); Cocaine Screen,Urine Negative (Negative); METHADONE URINE SCREEN Negative (Negative); OPIATES URINE SCREEN Negative (Negative)
[2018-04-18 21:04] LABS: ALT 25 U/L (12-78); AST 15 U/L (15-37); Alkaline Phosphatase 114 U/L (46-116); Anion Gap 11.3 mmol/L (3-11); BUN 8 mg/dL (7-18); Bilirubin, Total 0.1 mg/dL (0.2-1.0); CO2 25.7 mmol/L (21.0-32.0); CREATININE 0.74 mg/dL (0.55-1.02); Calcium 9.3 mg/dL (8.5-10.1); Chloride 103 mmol/L (98-107); Glucose 100 mg/dL (70-100); Potassium 3.4 mmol/L (3.5-5.1); Sodium 140 mmol/L (136-145); TSH 3.35 uIU/mL (0.358-3.74); Total Protein 7.1 g/dL (6.4-8.2)
[2018-04-18 21:17] LABS: ETHANOL BLOOD < 3.0 mg/dL (<3)
[2018-04-18 21:17] LABS: Tricyclic Antidepressants POSITIVE (Negative)
[2018-04-18 21:28] LABS: Salicylate 5.7 mg/dL (2.8-20.0)
[2018-04-18 21:30] LABS: Acetaminophen < 2 ug/mL (10-30)
[2018-04-18 21:50] VITALS: BP 101/49; PULSE 100; RESP 16; TEMP 36.5; O2SAT 96
[2018-04-18] MEDS: Bacitracin 1 PACKET TP (21:51)
--- NOTE | 2018-04-18 22:37 | PDOC.MHCN ---
Date of service: 04/18/18 Time of Service: 22:38 Mental Health Crisis Note Presenting Issue How did you arrive at the ED and why did you come: Arrived at emergency room with friends of her that were concerned about her cutting, being suicidal, and hopelessness. Precipitating Factors Vimal presents with passive suicidal ideation. She reflects on feeling tired and not wanting to continue to fight her depression. Discussed with her how depression is a disorder that does not go away. Cued her to coping skills and support network. She identified a plan of driving her car into the water, but the water is frozen right now. Through discussing resentment and process of depression, she identified two supports she can stay with stephanie. She agreed to follow up with her welfare case worker and CHIEF SCIENTIST tomorrow. Therefore, suicidal ideation is passive, intent seems low, ability to access plan is minimal due to weather. She also agreed to call [facility] if depression worsen or is not redirected. Disposition BEHAVIOR: able to process feelings and be redirected/she was somewhat melancholic and covered her head or turned when emotions were difficult to process. She could finish processing though EYE CONTACT: fair MOOD: depressed AFFECT: flat/but tearful at times with some mild slowed thinking APPETITE: no problems reported SLEEP(trouble falling/staying asleep: none reported Plan Vimal will stay with her friends stephanie. She will call [facility] if symptoms of depression increase. [facility] will follow up with her tomorrow through her welfare case worker. She has agreed to a referral for therapy. She will see her CHIEF SCIENTIST tomorrow and notify [facility] if she still feels suicidal after meeting with two members of her treatment team. Signature Clinician's Name/Title: David Moody MA [facility]
--- NOTE | 2018-04-18 22:46 | PDOC.MHCN_ITS ---
Date of service: 04/18/18 Time of Service: 22:38 Mental Health Crisis Note Presenting Issue How did you arrive at the ED and why did you come: Arrived at emergency room with friends of her that were concerned about her cutting, being suicidal, and hopelessness. Precipitating Factors Vimal presents with passive suicidal ideation. She reflects on feeling tired and not wanting to continue to fight her depression. Discussed with her how depression is a disorder that does not go away. Cued her to coping skills and support network. She identified a plan of driving her car into the water, but the water is frozen right now. Through discussing resentment and process of depression, she identified two supports she can stay with stephanie. She agreed to follow up with her trimming caser and GAME PRODUCER tomorrow. Therefore, suicidal ideation is passive, intent seems low, ability to access plan is minimal due to weather. She also agreed to call [facility] if depression worsen or is not redirected. Disposition BEHAVIOR: able to process feelings and be redirected/she was somewhat melancholic and covered her head or turned when emotions were difficult to process. She could finish processing though EYE CONTACT: fair MOOD: depressed AFFECT: flat/but tearful at times with some mild slowed thinking APPETITE: no problems reported SLEEP(trouble falling/staying asleep: none reported Plan Vimla will stay with her friends stephanie. She will call [facility] if symptoms of depression increase. [facility] will follow up with her tomorrow through her trimming caser. She has agreed to a referral for therapy. She will see her GAME PRODUCER tomorrow and notify [facility] if she still feels suicidal after meeting with two members of her treatment team. Signature Clinician's Name/Title: David Moody MA [facility]
== END 2018-04-18 21:55 | disposition home or self-care (01) ==
PROVIDERS: Emergency Provider Emergency Medicine; PCP Family Medicine
DX: S51.812A Laceration without foreign body of left forearm, initial encounter (principal); F41.9 Anxiety disorder, unspecified; R45.851 Suicidal ideations; X78.9XXA Intentional self-harm by unspecified sharp object, initial encounter
CPT/HCPCS: 36415; 80053; 80307; 81025; 99285; 80320; 80329; 81003; 81015; 84443; 85025; 99284

== ENCOUNTER 2018-05-07 14:02 | Outpatient (CLI) | payer MEDICARE, MEDICAID, SELFPAY ==
[2018-05-07 15:00] LABS: Abs Immature Grans 0.04 k/cumm (0.0-0.09); Absolute Basophil Count 0.05 k/cumm (0.0-0.2); Absolute Eosinophil Count 0.24 k/cumm (0.0-0.7); Absolute Lymphocyte Count 1.69 k/cumm (1.2-3.4); Absolute Monocyte Count 0.68 k/cumm (0.11-0.7); Absolute Neutrophil Count 5.81 k/cumm (1.2-6.7); Basophils % 0.6; Eosinophils % 2.8; HCT 43.1 % (36.0-46.0); HGB 14.7 g/dL (12.0-15.5); Immature Grans % 0.5; Lymphocytes % 19.9; Mean Corp. HGB Concentration 34.1 g/dL (32.0-36.0); Mean Corpuscular Hemoglobin 33.1 pg (27.0-33.0); Mean Corpuscular Volume 97.1 fL (80-95); Mean Platelet Volume 8.9 fL (8.0-11.0); Neutrophils % 68.2; Platelet Count 328 x1000/uL (130-400); RBC 4.44 m/cumm (4.00-5.20); RBC Distribution Width 13.2 % (11.7-14.6); White Blood Cell Count 8.51 k/cumm (4.4-10.8)
== END 2018-05-07 14:22 ==
PROVIDERS: PCP Family Medicine; Visit Provider Nurse Practitioner Psychiatric/Mental Health
DX: F20.9 Schizophrenia, unspecified (principal); Z79.899 Other long term (current) drug therapy
CPT/HCPCS: 36415; 85025

== ENCOUNTER 2018-05-11 10:13 | Outpatient (CLI) | payer MEDICARE, MEDICAID, SELFPAY ==
[2018-05-11 12:16] LABS: Abs Immature Grans 0.03 k/cumm (0.0-0.09); Absolute Basophil Count 0.04 k/cumm (0.0-0.2); Absolute Eosinophil Count 0.33 k/cumm (0.0-0.7); Absolute Monocyte Count 0.77 k/cumm (0.11-0.7); Basophils % 0.2; Eosinophils % 1.8; HGB 15.5 g/dL (12.0-15.5); Immature Grans % 0.2; Lymphocytes % 10.2; Mean Corp. HGB Concentration 34.4 g/dL (32.0-36.0); Mean Corpuscular Hemoglobin 32.9 pg (27.0-33.0); Mean Corpuscular Volume 95.5 fL (80-95); Mean Platelet Volume 9.1 fL (8.0-11.0); Monocytes % 4.2; Neutrophils % 83.4; Platelet Count 352 x1000/uL (130-400); RBC 4.71 m/cumm (4.00-5.20); White Blood Cell Count 18.28 k/cumm (4.4-10.8)
[2018-05-11 12:19] LABS: Absolute Lymphocyte Count 1.86 k/cumm (1.2-3.4); Absolute Neutrophil Count 15.25 k/cumm (1.2-6.7)
== END 2018-05-11 10:33 ==
PROVIDERS: PCP Family Medicine; Visit Provider Nurse Practitioner Psychiatric/Mental Health
DX: F20.9 Schizophrenia, unspecified (principal); Z79.899 Other long term (current) drug therapy
CPT/HCPCS: 36415; 85025

== ENCOUNTER 2018-06-11 10:22 | Outpatient (CLI) | payer MEDICARE, MEDICAID, SELFPAY ==
[2018-06-11 13:52] LABS: Hemoglobin A1C 5.1 % (4.5-6.2)
[2018-06-11 14:04] LABS: Abs Immature Grans 0.03 k/cumm (0.0-0.09); Absolute Basophil Count 0.06 k/cumm (0.0-0.2); Absolute Lymphocyte Count 2.42 k/cumm (1.2-3.4); Absolute Monocyte Count 0.64 k/cumm (0.11-0.7); Absolute Neutrophil Count 6.44 k/cumm (1.2-6.7); Basophils % 0.6; HCT 41.4 % (36.0-46.0); HGB 14.4 g/dL (12.0-15.5); Immature Grans % 0.3; Lymphocytes % 24.5; Mean Corp. HGB Concentration 34.8 g/dL (32.0-36.0); Mean Platelet Volume 9.1 fL (8.0-11.0); Monocytes % 6.5; Neutrophils % 65.1; Platelet Count 357 x1000/uL (130-400); RBC 4.36 m/cumm (4.00-5.20); RBC Distribution Width 13.2 % (11.7-14.6); White Blood Cell Count 9.89 k/cumm (4.4-10.8)
[2018-06-11 14:36] LABS: ALT 32 U/L (12-78); AST 16 U/L (15-37); Albumin 3.9 g/dL (3.4-5.0); Alkaline Phosphatase 131 U/L (46-116); Anion Gap 10.5 mmol/L (3-11); BUN 11 mg/dL (7-18); Bilirubin, Total 0.2 mg/dL (0.2-1.0); CO2 27.5 mmol/L (21.0-32.0); CREATININE 0.77 mg/dL (0.55-1.02); Calcium 9.2 mg/dL (8.5-10.1); Chloride 102 mmol/L (98-107); Cholesterol 206 mg/dL (50-200); Glucose 73 mg/dL (70-100); HDL Cholesterol 55 mg/dL (40-60); LDL CHOLESTEROL 127 mg/dL (<100); Potassium 3.8 mmol/L (3.5-5.1); Sodium 140 mmol/L (136-145); TSH (W/Ref FT4) 2.45 uIU/mL (0.358-3.74); Total Protein 6.7 g/dL (6.4-8.2); Triglyceride 124 mg/dL (30-150)
[2018-06-11 14:37] LABS: HCG Qual (Serum) Negative
[2018-06-12 10:26] LABS: HIV-1/2 Ag & Ab Screen Negative (NEGAT)
[2018-06-12 15:07] LABS: Chlamydia Result Negative; Specimen Description URINE
[2018-06-13 10:52] LABS: HSV Type 1 Ab, IgG Negative; HSV Type 2 Ab, IgG Negative
== END 2018-06-11 10:42 ==
PROVIDERS: PCP Family Medicine; Visit Provider Nurse Practitioner Psychiatric/Mental Health
DX: F25.1 Schizoaffective disorder, depressive type (principal); Z79.899 Other long term (current) drug therapy; Z11.4 Encounter for screening for human immunodeficiency virus [HIV]; Z11.59 Encounter for screening for other viral diseases
CPT/HCPCS: 36415; 80053; 80061; 83721; 87389; 87491; 87591; 83036; 84443; 84703; 85025; 86695; 86696

== ENCOUNTER 2018-08-01 12:23 | Outpatient (CLI) | payer MEDICARE, MEDICAID, SELFPAY ==
[2018-08-01 12:57] LABS: Abs Immature Grans 0.01 k/cumm (0.0-0.09); Absolute Basophil Count 0.04 k/cumm (0.0-0.2); Absolute Eosinophil Count 0.33 k/cumm (0.0-0.7); Absolute Monocyte Count 0.42 k/cumm (0.11-0.7); Absolute Neutrophil Count 4.54 k/cumm (1.2-6.7); Basophils % 0.6; Eosinophils % 4.7; HCT 41.4 % (36.0-46.0); HGB 14.2 g/dL (12.0-15.5); Immature Grans % 0.1; Lymphocytes % 24.1; Mean Corp. HGB Concentration 34.3 g/dL (32.0-36.0); Mean Corpuscular Volume 96.3 fL (80-95); Mean Platelet Volume 9.1 fL (8.0-11.0); Neutrophils % 64.5; Platelet Count 325 x1000/uL (130-400); RBC Distribution Width 12.7 % (11.7-14.6); White Blood Cell Count 7.04 k/cumm (4.4-10.8)
== END 2018-08-01 12:43 ==
PROVIDERS: PCP Family Medicine; Visit Provider Nurse Practitioner Psychiatric/Mental Health
DX: F20.9 Schizophrenia, unspecified (principal); Z79.899 Other long term (current) drug therapy
CPT/HCPCS: 36415; 85025

== ENCOUNTER 2018-08-10 09:42 | Emergency (ER) | payer MEDICARE, MEDICAID, SELFPAY ==
[2018-08-10] VITALS (33 sets, daily range): BP systolic 94–142; BP diastolic 58–79; PULSE 78–143; RESP 11–42; TEMP 36.6–37.5; O2SAT 94–98
--- NOTE | 2018-08-10 09:57 | W.ED.GENAD ---
Discharge Plan Disposition Patient Disposition: [facility] Condition: Stable Discharge Details Chief Complaint: OD/Poison Clinical Impression: Suicide attempt, Drug overdose, intentional Primary Care Provider: Moo Robles ED Provider: Joann Barrett Home Meds and New Rx's Prescriptions: Continued lamotrigine 150 MG tablet 200 mg PO DAILY RF: 0 clozapine 100 MG tablet 200 mg PO HS RF: 0 trazodone 50 MG tablet 50 mg PO HS RF: 0 docusate sodium [Colace] 100 MG capsule 100 mg PO DAILY RF: 0 acetaminophen [Tylenol] 325 MG tablet 650 mg PO Q4H PRN PRNRF: 0 No Action clonidine HCl 0.1 mg Tablet 0.1 mg PO BID RF: 0 naltrexone 50 mg Tablet 25 mg PO DAILY RF: 0 paroxetine HCl 40 mg Tablet 40 mg PO DAILY RF: 0 Discharge Data Discharge Date/Time-TO BE ENTERED AT DEPARTURE: 08/10/18 18:17 Discharge Physician: Joann Barrett Medical Decision Making 38-year-old female with a history of anxiety, schizophrenia, paranoia and social anxiety who presents after intentional overdose of Vistaril and fgcr-cye-[id number] allergy medication last night. Patient is unsure of the dosing but states she thinks she took approximately 20 tabs of each. Patient was able to ambulate to the stretcher per EMS. Heart rate 140s but remainder vitals within normal limits per EMS. Patient arrived to the ED drowsy but easily arousable and able to answer questions. Heart rate 120s to 140s. Blood pressure within normal limits. No focal deficits. 0950 --discussed with poison control. Main concern would be the anticholinergic effect of possibly Benadryl and Vistaril. As patient is approximately 12 hours out, there is no timeframe for continued monitoring, but rather recommend to monitor until clinically improved in terms of vital signs and mental status. As patient is drowsy and tachycardic, if this improves, likely her symptoms would not worsen and she could be medically cleared. EKG notes a rate of 133, sinus, QTC 458, QRS 90. Heart rate still 130s to 140s. Will give a dose of Ativan, IV fluids and reassess. Will check tox work-up. CPSO ordered. 1050 --patient now more awake and alert. Heart rate 90s. Patient states that she thinks she took approximately 15 tabs of her Vistaril and the [id number] allergy medication. She denies taking any overdose of her other medications. She has not taken any of her medications this morning at today. She does also admit to drinking 224 ounce cans of beer last night. Labs reviewed and unremarkable. Negative salicylate, Tylenol, alcohol. Urinalysis still pending. CXR negative. 1145 --urinalysis negative. UDS + for tricyclics. Patient awake and alert and in no acute distress. Heart rate 80s. Remainder vitals within normal limits. Patient is medically cleared. Will call [facility] for evaluation. 1300 --pt hemodynamically stable. D/w mental health - will call for placement. 1640 --pt accepted to [facility]- accepting physician Dr. Lorenzo. Pt has slight decrease in BP 94/65. Will give small bolus IVF. She has no acute complaints and remainder of vitals wnl. She has been sleeping and cooperative. BP prior to transfer 110/64. Medical Records Medical records reviewed: Yes I reviewed the patient's medical records. Imaging Data Radiologic Study: Radiologist's impression: CHEST X-RAY: Portable AP view. Comparison 03/25/11 The heart is normal in size. The lungs are clear. The mediastinal structures and pleura appear intact. CONCLUSION: Normal chest. Lab Data Lab results reviewed: Yes I reviewed the patient's lab results. 08/10/18 11:10 Urine - Reflex from Ua Urine Culture - Preliminary Gram Positive Janet,Mixed Laboratory Tests Range/Units 08/10/18 08/10/18 08/10/18 09:55 09:55 09:55 WBC (4.4-10.8) k/cumm 7.36 RBC (4.00-5.20) m/cumm 4.46 Hgb (12.0-15.5) g/dL 14.6 Hct (36.0-46.0) % 41.9 MCV (80-95) fL 93.9 MCH (27.0-33.0) pg 32.7 MCHC (32.0-36.0) g/dL 34.8 RDW (11.7-14.6) % 12.6 Plt Count (130-400) x1000/uL 366 MPV (8.0-11.0) fL 9.1 Immature Gran % 0.1 Neutrophils % 76.8 Lymphocytes % 16.0 Monocytes % 5.7 Eosinophils % 0.7 Basophils % 0.7 Absolute Neutrophils (1.2-6.7) k/cumm 5.65 Absolute Lymphocytes (1.2-3.4) k/cumm 1.18 L Absolute Monocytes (0.11-0.7) k/cumm 0.42 Absolute Eosinophils (0.0-0.7) k/cumm 0.05 Absolute Basophils (0.0-0.2) k/cumm 0.05 Sodium (136-145) mmol/L 143 Potassium (3.5-5.1) mmol/L 3.7 Chloride (98-107) mmol/L 108 H Carbon Dioxide (21.0-32.0) mmol/L 23.0 Anion Gap (3-11) mmol/L 12.0 H BUN (7-18) mg/dL 8 Creatinine (0.55-1.02) mg/dL 0.95 Estimated GFR/1.73 m2 (mL/min/1.73m2) >= 60.00 Glucose (70-100) mg/dL 136 H Calcium (8.5-10.1) mg/dL 10.6 H Magnesium (1.8-2.4) mg/dL 1.7 L Total Bilirubin (0.2-1.0) mg/dL 0.2 AST (15-37) U/L 14 L ALT (12-78) U/L 28 Alkaline Phosphatase (46-116) U/L 105 Troponin I (0.00-0.06) ng/mL < 0.02 Total Protein (6.4-8.2) g/dL 7.1 Albumin (3.4-5.0) g/dL 4.1 Urine Color (Yellow) Urine Clarity Urine pH (5-8) Ur Specific [place] (1.005-1.025) Urine Protein (Negative) mg/dL Urine Ketones (Negative) mg/dL Urine Blood (Negative) Urine Nitrite (Negative) Urine Bilirubin (Negative) Urine Urobilinogen (Up TO 0.2) EU/dL Ur Leukocyte Esterase (Negative) Urine RBC (0-2) Urine WBC (0-5) HPF Ur Epithelial Cells (Negative) HPF Urine Crystals (Negative) HPF Urine Bacteria (Negative) HPF Urine Casts (Negative) LPF Urine Mucus (Negative) Ur Culture Indicated? Urine Glucose (Negative) mg/dL Salicylates (2.8-20.0) mg/dL 3.2 Urine Opiates Screen (Negative) Urine Methadone Screen (Negative) Acetaminophen (10-30) ug/mL < 2 L Ur Barbiturates Screen (Negative) Ur Tricyclics Screen (Negative) Ur Amphetamines Screen (Negative) U Benzodiazepines Scrn (Negative) Urine Cocaine Screen (Negative) Ur THC Screen (Negative) Ethyl Alcohol (<3) mg/dL < 3.0 Range/Units 08/10/18 08/10/18 11:10 11:10 WBC (4.4-10.8) k/cumm RBC (4.00-5.20) m/cumm Hgb (12.0-15.5) g/dL Hct (36.0-46.0) % MCV (80-95) fL MCH (27.0-33.0) pg MCHC (32.0-36.0) g/dL RDW (11.7-14.6) % Plt Count (130-400) x1000/uL MPV (8.0-11.0) fL Immature Gran % Neutrophils % Lymphocytes % Monocytes % Eosinophils % Basophils % Absolute Neutrophils (1.2-6.7) k/cumm Absolute Lymphocytes (1.2-3.4) k/cumm Absolute Monocytes (0.11-0.7) k/cumm Absolute Eosinophils (0.0-0.7) k/cumm Absolute Basophils (0.0-0.2) k/cumm Sodium (136-145) mmol/L Potassium (3.5-5.1) mmol/L Chloride (98-107) mmol/L Carbon Dioxide (21.0-32.0) mmol/L Anion Gap (3-11) mmol/L BUN (7-18) mg/dL Creatinine (0.55-1.02) mg/dL Estimated GFR/1.73 m2 (mL/min/1.73m2) Glucose (70-100) mg/dL Calcium (8.5-10.1) mg/dL Magnesium (1.8-2.4) mg/dL Total Bilirubin (0.2-1.0) mg/dL AST (15-37) U/L ALT (12-78) U/L Alkaline Phosphatase (46-116) U/L Troponin I (0.00-0.06) ng/mL Total Protein (6.4-8.2) g/dL Albumin (3.4-5.0) g/dL Urine Color (Yellow) Yellow Urine Clarity Clear Urine pH (5-8) 7.0 Ur Specific [place] (1.005-1.025) 1.015 Urine Protein (Negative) mg/dL Negative Urine Ketones (Negative) mg/dL Negative Urine Blood (Negative) Negative Urine Nitrite (Negative) Negative Urine Bilirubin (Negative) Negative Urine Urobilinogen (Up TO 0.2) EU/dL 0.2 Ur Leukocyte Esterase (Negative) Trace H Urine RBC (0-2) Negative Urine WBC (0-5) HPF 0-2 Ur Epithelial Cells (Negative) HPF Few Urine Crystals (Negative) HPF Negative Urine Bacteria (Negative) HPF Rare Urine Casts (Negative) LPF Comment Urine Mucus (Negative) Trace Ur Culture Indicated? Yes Urine Glucose (Negative) mg/dL Negative Salicylates (2.8-20.0) mg/dL Urine Opiates Screen (Negative) Negative Urine Methadone Screen (Negative) Negative Acetaminophen (10-30) ug/mL Ur Barbiturates Screen (Negative) Negative Ur Tricyclics Screen (Negative) Positive Ur Amphetamines Screen (Negative) Negative U Benzodiazepines Scrn (Negative) Negative Urine Cocaine Screen (Negative) Negative Ur THC Screen (Negative) Negative Ethyl Alcohol (<3) mg/dL ECG Data Attestation: I personally reviewed and interpreted this ECG (s) as follows: Interpretation: Rate of 133, sinus. No acute ST elevation or depression. QTc 458. QRS 90. HPI General Mode of arrival: EMS. Date/Time Provider Initiated Documentation: 08/10/18 09:49. Information obtained by: patient and EMS. HPI Narrative: Patient is a 38-year-old female who presents to the ED status post intentional overdose of Vistaril and an fpla-chm-[id number] allergy medication. Patient states that around 1130 last night she took half a bottle of Vistaril. She states she is unsure of the milligrams but thinks it was approximately 20 some pills. She states she also took a similar amount of the ytez-egg-cpprmuu allergy medication of unknown milligram. Patient states she walked to her landlord's this morning and told them that she took an overdose of her pills. EMS states that the landlord called them. EMS states that patient was able to ambulate to the stretcher. Patient states that she feels better at this time. Related Data Home Medications Medication Instructions Recorded Confirmed clozapine 200 mg PO HS 07/11/12 08/10/18 lamotrigine 200 mg PO DAILY 07/11/12 08/10/18 docusate sodium [Colace] 100 mg PO DAILY 07/23/17 08/10/18 trazodone 50 mg PO HS 07/23/17 08/10/18 acetaminophen [Tylenol] 650 mg PO Q4H PRN PRN tab 07/24/17 04/18/18 clonidine HCl 0.1 mg PO BID 08/10/18 08/10/18 naltrexone 25 mg PO DAILY 08/10/18 08/10/18 paroxetine HCl 40 mg PO DAILY 08/10/18 08/10/18 Previous Rx's Medication Instructions Recorded acetaminophen [Tylenol] 650 mg PO Q4H PRN PRN tab 07/24/17 Allergies Allergy/AdvReac Type Severity Reaction Status Date / Time niacin Allergy Intermediate Skin Rash Unverified 08/10/18 09:52 [From Niaspan Extended-Release] vilazodone [From Viibryd] AdvReac Intermediate Agitation Unverified 08/10/18 09:52 Penicillins AdvReac Mild RESTLESS Unverified 08/10/18 09:52 General Stated Complaint: OD/Poison [place]: 2 Review of Systems Review of Systems All systems reviewed & are unremarkable except as noted in HPI and below Constitutional Reports as per HPI, Denies chills, Reports fatigue and Denies fever(s) Eyes Denies blurry vision ENT Denies dizziness, Denies sore throat and Denies throat swelling Cardiovascular Denies chest pain and Denies dyspnea Respiratory Denies cough and Denies dyspnea Gastrointestinal Denies abdominal pain, Denies diarrhea and Denies vomiting Genitourinary Denies hematuria and Denies dysuria Musculoskeletal Denies back pain and Denies numbness Integumentary/Breasts Denies lesions and Denies rash Neurologic Denies dizziness, Denies focal weakness and Denies numbness Endocrine Reports fatigue Allergic/Immunologic Denies throat swelling [facility] Social History Smoking/Tobacco Use Status: Current every day Alcohol Intake: never Drug use: Never Substance use type: does not use Do you feel safe at home: No Do you feel safe in your relationship?: No Additional Social history: 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 Exam Const General: cooperative and other (mildly drowsy) Orientation: oriented x3 and other (drowsy but arousable) HENMT Head: normal to inspection Ears: hearing grossly normal bilaterally and external ears normal General nose exam: external nose normal Face and sinus: normal facial exam Mouth: oral mucosae normal Teeth and gingiva: dentition normal Throat: posterior oropharynx normal Eyes General: appearance normal, both eyes and all related structures Eyelids: eyelids normal Pupils: PERRL EOM: EOM intact bilaterally Neck Neck: normal visual inspection Lymphatic: no lymphadenopathy noted Chest Chest: normal inspection of the chest Resp Effort & Inspection: normal respiratory effort and able to speak in complete sentences Auscultation: clear to auscultation bilaterally Cardio Rate: regular rate Rhythm: regular rhythm GI Inspection: normal to inspection Palpation: soft, not firm, no guarding, no hepatosplenomegaly, no masses and nontender Auscultation: normal bowel sounds Skin General skin exam: no rashes or lesions noted Neuro General: oriented x3, moves all extremities and other (drowsy but arousable) Cognition: normal cognition Speech: speech normal Motor: muscle tone normal throughout and strength 5/5 throughout Sensory Exam: no sensory deficits noted Extrem General: normal to inspection, full ROM and normal capillary refill Psych Appearance: grossly normal Mental Status: mental status grossly normal Speech and Movement: speech and movement normal Affect: blunted Thought Process: normal Course Vital Signs Temperature 97.9 F 08/10/18 09:46 Pulse 132 H 08/10/18 09:46 Respiratory Rate 14 08/10/18 09:46 Blood Pressure 142/61 H 08/10/18 09:46 Pulse Oximetry 97 08/10/18 09:46 Temperature 97.9 F 08/10/18 09:46 Temperature Source Temporal Artery Scan 08/10/18 09:46 Pulse 132 H 08/10/18 09:46 Respiratory Rate 14 08/10/18 09:46 Respiratory Effort Non-Labored 08/10/18 09:46 Blood Pressure 142/61 H 08/10/18 09:46 Pulse Oximetry 97 08/10/18 09:46 Oxygen Delivery Method Room Air 08/10/18 09:46 Oxygen Flow Rate 0 08/10/18 09:46
[2018-08-10] MEDS: LORazepam 2 MG/ML VIAL 0.5 MG IVP (10:00)
--- NOTE | 2018-08-10 10:03 | DI.RAD_ITS ---
SYMPTOM/DIAGNOSIS: S/P OVERDOSE, R/O ACUTE DISEASE CHEST X-RAY: Portable AP view. Comparison 03/25/11 The heart is normal in size. The lungs are clear. The mediastinal structures and pleura appear intact. CONCLUSION: Normal chest.
[2018-08-10] MEDS: Normal Saline Flush 10 ML SYR IVP (10:04)
[2018-08-10] MEDS: Normal Saline 1,000 ML 1000 ML IV (10:04)
--- NOTE | 2018-08-10 10:08 | ED.GENADUL_ITS ---
Discharge Plan Disposition Patient Disposition: [facility] Condition: Stable Discharge Details Chief Complaint: OD/Poison Clinical Impression: Suicide attempt, Drug overdose, intentional Primary Care Provider: Moo Robles ED Provider: Joann Barrett Home Meds and New Rx's Prescriptions: Continued lamotrigine 150 MG tablet 200 mg PO DAILY RF: 0 clozapine 100 MG tablet 200 mg PO HS RF: 0 trazodone 50 MG tablet 50 mg PO HS RF: 0 docusate sodium [Colace] 100 MG capsule 100 mg PO DAILY RF: 0 acetaminophen [Tylenol] 325 MG tablet 650 mg PO Q4H PRN PRNRF: 0 No Action clonidine HCl 0.1 mg Tablet 0.1 mg PO BID RF: 0 naltrexone 50 mg Tablet 25 mg PO DAILY RF: 0 paroxetine HCl 40 mg Tablet 40 mg PO DAILY RF: 0 Discharge Data Discharge Date/Time-TO BE ENTERED AT DEPARTURE: 08/10/18 18:17 Discharge Physician: Joann Barrett Medical Decision Making 38-year-old female with a history of anxiety, schizophrenia, paranoia and social anxiety who presents after intentional overdose of Vistaril and over-the- counter allergy medication last night. Patient is unsure of the dosing but states she thinks she took approximately 20 tabs of each. Patient was able to ambulate to the stretcher per EMS. Heart rate 140s but remainder vitals within normal limits per EMS. Patient arrived to the ED drowsy but easily arousable and able to answer questions. Heart rate 120s to 140s. Blood pressure within normal limits. No focal deficits. 0950 --discussed with poison control. Main concern would be the anticholinergic effect of possibly Benadryl and Vistaril. As patient is approximately 12 hours out, there is no timeframe for continued monitoring, but rather recommend to monitor until clinically improved in terms of vital signs and mental status. As patient is drowsy and tachycardic, if this improves, likely her symptoms would not worsen and she could be medically cleared. EKG notes a rate of 133, sinus, QTC 458, QRS 90. Heart rate still 130s to 140s. Will give a dose of Ativan, IV fluids and reassess. Will check tox work-up. CPSO ordered. 1050 --patient now more awake and alert. Heart rate 90s. Patient states that she thinks she took approximately 15 tabs of her Vistaril and the ove l-nju-carrofm allergy medication. She denies taking any overdose of her other medications. She has not taken any of her medications this morning at today. She does also admit to drinking 224 ounce cans of beer last night. Labs reviewed and unremarkable. Negative salicylate, Tylenol, alcohol. Urinalysis still pending. CXR negative. 1145 --urinalysis negative. UDS + for tricyclics. Patient awake and alert and in no acute distress. Heart rate 80s. Remainder vitals within normal limits. Patient is medically cleared. [facility]. 1300 --pt hemodynamically stable. D/w mental health - will call for placement. 1640 --pt accepted to [facility]- accepting physician Dr. Lorenzo. Pt has slight decrease in BP 94/65. Will give small bolus IVF. She has no acute complaints and remainder of vitals wnl. She has been sleeping and cooperative. BP prior to transfer 110/64. Medical Records Medical records reviewed: Yes I reviewed the patient's medical records. Imaging Data Radiologic Study: Radiologist's impression: CHEST X-RAY: Portable AP view. Comparison 03/25/11 The heart is normal in size. The lungs are clear. The mediastinal structures and pleura appear intact. CONCLUSION: Normal chest. Lab Data Lab results reviewed: Yes I reviewed the patient's lab results. 08/10/18 11:10 Urine - Reflex from Ua Urine Culture - Preliminary Gram Positive Janet,Mixed Laboratory Tests Range/Units 08/10/18 08/10/18 08/10/18 09:55 09:55 09:55 WBC (4.4-10.8) k/cumm 7.36 RBC (4.00-5.20) m/cumm 4.46 Hgb (12.0-15.5) g/dL 14.6 Hct (36.0-46.0) % 41.9 MCV (80-95) fL 93.9 MCH (27.0-33.0) pg 32.7 MCHC (32.0-36.0) g/dL 34.8 RDW (11.7-14.6) % 12.6 Plt Count (130-400) x1000/uL 366 MPV (8.0-11.0) fL 9.1 Immature Gran % 0.1 Neutrophils % 76.8 Lymphocytes % 16.0 Monocytes % 5.7 Eosinophils % 0.7 Basophils % 0.7 Absolute Neutrophils (1.2-6.7) k/cumm 5.65 Absolute Lymphocytes (1.2-3.4) k/cumm 1.18 L Absolute Monocytes (0.11-0.7) k/cumm 0.42 Absolute Eosinophils (0.0-0.7) k/cumm 0.05 Absolute Basophils (0.0-0.2) k/cumm 0.05 Sodium (136-145) mmol/L 143 Potassium (3.5-5.1) mmol/L 3.7 Chloride (98-107) mmol/L 108 H Carbon Dioxide (21.0-32.0) mmol/L 23.0 Anion Gap (3-11) mmol/L 12.0 H BUN (7-18) mg/dL 8 Creatinine (0.55-1.02) mg/dL 0.95 Estimated GFR/1.73 m2 (mL/min/1.73m2) >= 60.00 Glucose (70-100) mg/dL 136 H Calcium (8.5-10.1) mg/dL 10.6 H Magnesium (1.8-2.4) mg/dL 1.7 L Total Bilirubin (0.2-1.0) mg/dL 0.2 AST (15-37) U/L 14 L ALT (12-78) U/L 28 Alkaline Phosphatase (46-116) U/L 105 Troponin I (0.00-0.06) ng/mL < 0.02 Total Protein (6.4-8.2) g/dL 7.1 Albumin (3.4-5.0) g/dL 4.1 Urine Color (Yellow) Urine Clarity Urine pH (5-8) Ur Specific [place] (1.005-1.025) Urine Protein (Negative) mg/dL Urine Ketones (Negative) mg/dL Urine Blood (Negative) Urine Nitrite (Negative) Urine Bilirubin (Negative) Urine Urobilinogen (Up TO 0.2) EU/dL Ur Leukocyte Esterase (Negative) Urine RBC (0-2) Urine WBC (0-5) HPF Ur Epithelial Cells (Negative) HPF Urine Crystals (Negative) HPF Urine Bacteria (Negative) HPF Urine Casts (Negative) LPF Urine Mucus (Negative) Ur Culture Indicated? Urine Glucose (Negative) mg/dL Salicylates (2.8-20.0) mg/dL 3.2 Urine Opiates Screen (Negative) Urine Methadone Screen (Negative) Acetaminophen (10-30) ug/mL < 2 L Ur Barbiturates Screen (Negative) Ur Tricyclics Screen (Negative) Ur Amphetamines Screen (Negative) U Benzodiazepines Scrn (Negative) Urine Cocaine Screen (Negative) Ur THC Screen (Negative) Ethyl Alcohol (<3) mg/dL < 3.0 Range/Units 08/10/18 08/10/18 11:10 11:10 WBC (4.4-10.8) k/cumm RBC (4.00-5.20) m/cumm Hgb (12.0-15.5) g/dL Hct (36.0-46.0) % MCV (80-95) fL MCH (27.0-33.0) pg MCHC (32.0-36.0) g/dL RDW (11.7-14.6) % Plt Count (130-400) x1000/uL MPV (8.0-11.0) fL Immature Gran % Neutrophils % Lymphocytes % Monocytes % Eosinophils % Basophils % Absolute Neutrophils (1.2-6.7) k/cumm Absolute Lymphocytes (1.2-3.4) k/cumm Absolute Monocytes (0.11-0.7) k/cumm Absolute Eosinophils (0.0-0.7) k/cumm Absolute Basophils (0.0-0.2) k/cumm Sodium (136-145) mmol/L Potassium (3.5-5.1) mmol/L Chloride (98-107) mmol/L Carbon Dioxide (21.0-32.0) mmol/L Anion Gap (3-11) mmol/L BUN (7-18) mg/dL Creatinine (0.55-1.02) mg/dL Estimated GFR/1.73 m2 (mL/min/1.73m2) Glucose (70-100) mg/dL Calcium (8.5-10.1) mg/dL Magnesium (1.8-2.4) mg/dL Total Bilirubin (0.2-1.0) mg/dL AST (15-37) U/L ALT (12-78) U/L Alkaline Phosphatase (46-116) U/L Troponin I (0.00-0.06) ng/mL Total Protein (6.4-8.2) g/dL Albumin (3.4-5.0) g/dL Urine Color (Yellow) Yellow Urine Clarity Clear Urine pH (5-8) 7.0 Ur Specific [place] (1.005-1.025) 1.015 Urine Protein (Negative) mg/dL Negative Urine Ketones (Negative) mg/dL Negative Urine Blood (Negative) Negative Urine Nitrite (Negative) Negative Urine Bilirubin (Negative) Negative Urine Urobilinogen (Up TO 0.2) EU/dL 0.2 Ur Leukocyte Esterase (Negative) Trace H Urine RBC (0-2) Negative Urine WBC (0-5) HPF 0-2 Ur Epithelial Cells (Negative) HPF Few Urine Crystals (Negative) HPF Negative Urine Bacteria (Negative) HPF Rare Urine Casts (Negative) LPF Comment Urine Mucus (Negative) Trace Ur Culture Indicated? Yes Urine Glucose (Negative) mg/dL Negative Salicylates (2.8-20.0) mg/dL Urine Opiates Screen (Negative) Negative Urine Methadone Screen (Negative) Negative Acetaminophen (10-30) ug/mL Ur Barbiturates Screen (Negative) Negative Ur Tricyclics Screen (Negative) Positive Ur Amphetamines Screen (Negative) Negative U Benzodiazepines Scrn (Negative) Negative Urine Cocaine Screen (Negative) Negative Ur THC Screen (Negative) Negative Ethyl Alcohol (<3) mg/dL ECG Data Attestation: I personally reviewed and interpreted this ECG (s) as follows: Interpretation: Rate of 133, sinus. No acute ST elevation or depression. QTc 458. QRS 90. HPI General Mode of arrival: EMS . Date/Time Provider Initiated Documentation: 08/10/18 09:49 . Information obtained by: patient and EMS . HPI Narrative: Patient is a 38-year-old female who presents to the ED status post intentional overdose of Vistaril and an sjlh-jkv-yclskhv allergy medication. Patient states that around 1130 last night she took half a bottle of Vistaril. She states she is unsure of the milligrams but thinks it was approximately 20 some pills. She states she also took a similar amount of the lrsm-rgn-wubkegt allergy medication of unknown milligram. Patient states she walked to her landlord's this morning and told them that she took an overdose of her pills. EMS states that the landlord called them. EMS states that patient was able to ambulate to the stretcher. Patient states that she feels better at this time. Related Data Home Medications Medication Instructions Recorded Confirmed clozapine 200 mg PO HS 07/11/12 08/10/18 lamotrigine 200 mg PO DAILY 07/11/12 08/10/18 docusate sodium [Colace] 100 mg PO DAILY 07/23/17 08/10/18 trazodone 50 mg PO HS 07/23/17 08/10/18 acetaminophen [Tylenol] 650 mg PO Q4H PRN PRN tab 07/24/17 04/18/18 clonidine HCl 0.1 mg PO BID 08/10/18 08/10/18 naltrexone 25 mg PO DAILY 08/10/18 08/10/18 paroxetine HCl 40 mg PO DAILY 08/10/18 08/10/18 Previous Rx's Medication Instructions Recorded acetaminophen [Tylenol] 650 mg PO Q4H PRN PRN tab 07/24/17 Allergies Allergy/AdvReac Type Severity Reaction Status Date / Time niacin Allergy Intermediate Skin Rash Unverified 08/10/18 09:52 [From Niaspan Extended-Release] vilazodone [From Viibryd] AdvReac Intermediate Agitation Unverified 08/10/18 09:52 Penicillins AdvReac Mild RESTLESS Unverified 08/10/18 09:52 General Stated Complaint: OD/Poison [place]: 2 Review of Systems Review of Systems All systems reviewed & are unremarkable except as noted in HPI and below Constitutional Reports as per HPI, Denies chills, Reports fatigue and Denies fever(s) Eyes Denies blurry vision ENT Denies dizziness, Denies sore throat and Denies throat swelling Cardiovascular Denies chest pain and Denies dyspnea Respiratory Denies cough and Denies dyspnea Gastrointestinal Denies abdominal pain, Denies diarrhea and Denies vomiting Genitourinary Denies hematuria and Denies dysuria Musculoskeletal Denies back pain and Denies numbness Integumentary/Breasts Denies lesions and Denies rash Neurologic Denies dizziness, Denies focal weakness and Denies numbness Endocrine Reports fatigue Allergic/Immunologic Denies throat swelling [facility] Social History Smoking/Tobacco Use Status: Current every day Alcohol Intake: never Drug use: Never Substance use type: does not use Do you feel safe at home: No Do you feel safe in your relationship?: No Additional Social history: 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 Exam Const General: cooperative and other (mildly drowsy) Orientation: oriented x3 and other (drowsy but arousable) HENMT Head: normal to inspection Ears: hearing grossly normal bilaterally and external ears normal General nose exam: external nose normal Face and sinus: normal facial exam Mouth: oral mucosae normal Teeth and gingiva: dentition normal Throat: posterior oropharynx normal Eyes General: appearance normal, both eyes and all related structures Eyelids: eyelids normal Pupils: PERRL EOM: EOM intact bilaterally Neck Neck: normal visual inspection Lymphatic: no lymphadenopathy noted Chest Chest: normal inspection of the chest Resp Effort & Inspection: normal respiratory effort and able to speak in complete sentences Auscultation: clear to auscultation bilaterally Cardio Rate: regular rate Rhythm: regular rhythm GI Inspection: normal to inspection Palpation: soft, not firm, no guarding, no hepatosplenomegaly, no masses and nontender Auscultation: normal bowel sounds Skin General skin exam: no rashes or lesions noted Neuro General: oriented x3, moves all extremities and other (drowsy but arousable) Cognition: normal cognition Speech: speech normal Motor: muscle tone normal throughout and strength 5/5 throughout Sensory Exam: no sensory deficits noted Extrem General: normal to inspection, full ROM and normal capillary refill Psych Appearance: grossly normal Mental Status: mental status grossly normal Speech and Movement: speech and movement normal Affect: blunted Thought Process: normal Course Vital Signs Temperature 97.9 F 08/10/18 09:46 Pulse 132 H 08/10/18 09:46 Respiratory Rate 14 08/10/18 09:46 Blood Pressure 142/61 H 08/10/18 09:46 Pulse Oximetry 97 08/10/18 09:46 Temperature 97.9 F 08/10/18 09:46 Temperature Source Temporal Artery Scan 08/10/18 09:46 Pulse 132 H 08/10/18 09:46 Respiratory Rate 14 08/10/18 09:46 Respiratory Effort Non-Labored 08/10/18 09:46 Blood Pressure 142/61 H 08/10/18 09:46 Pulse Oximetry 97 08/10/18 09:46 Oxygen Delivery Method Room Air 08/10/18 09:46 Oxygen Flow Rate 0 08/10/18 09:46
[2018-08-10 10:10] LABS: Abs Immature Grans 0.01 k/cumm (0.0-0.09); Absolute Basophil Count 0.05 k/cumm (0.0-0.2); Absolute Eosinophil Count 0.05 k/cumm (0.0-0.7); Absolute Lymphocyte Count 1.18 k/cumm (1.2-3.4); Absolute Monocyte Count 0.42 k/cumm (0.11-0.7); Absolute Neutrophil Count 5.65 k/cumm (1.2-6.7); Basophils % 0.7; Eosinophils % 0.7; HCT 41.9 % (36.0-46.0); HGB 14.6 g/dL (12.0-15.5); Immature Grans % 0.1; Mean Corp. HGB Concentration 34.8 g/dL (32.0-36.0); Mean Corpuscular Hemoglobin 32.7 pg (27.0-33.0); Mean Corpuscular Volume 93.9 fL (80-95); Mean Platelet Volume 9.1 fL (8.0-11.0); Monocytes % 5.7; Neutrophils % 76.8; Platelet Count 366 x1000/uL (130-400); RBC 4.46 m/cumm (4.00-5.20); RBC Distribution Width 12.6 % (11.7-14.6); White Blood Cell Count 7.36 k/cumm (4.4-10.8)
[2018-08-10 10:28] LABS: ALT 28 U/L (12-78); AST 14 U/L (15-37); Albumin 4.1 g/dL (3.4-5.0); Alkaline Phosphatase 105 U/L (46-116); BUN 8 mg/dL (7-18); Bilirubin, Total 0.2 mg/dL (0.2-1.0); CREATININE 0.95 mg/dL (0.55-1.02); Calcium 10.6 mg/dL (8.5-10.1); Chloride 108 mmol/L (98-107); Glucose 136 mg/dL (70-100); Magnesium 1.7 mg/dL (1.8-2.4); Potassium 3.7 mmol/L (3.5-5.1); Sodium 143 mmol/L (136-145); Total Protein 7.1 g/dL (6.4-8.2)
[2018-08-10 10:31] LABS: Troponin I < 0.02 ng/mL (0.00-0.06)
[2018-08-10 10:45] LABS: ETHANOL BLOOD < 3.0 mg/dL (<3)
[2018-08-10 10:46] LABS: Acetaminophen < 2 ug/mL (10-30); Salicylate 3.2 mg/dL (2.8-20.0)
[2018-08-10 11:19] LABS: Bilirubin Negative (Negative); Blood Negative (Negative); Clarity Clear; Glucose Negative (Negative); Ketones Negative (Negative); Leukocyte Esterase Trace (Negative); Nitrite Negative (Negative); Specific Gravity 1.015 (1.005-1.025); Urobilinogen 0.2 EU/dL (Up TO 0.2)
[2018-08-10 11:30] LABS: *AMPHETAMINES SCREEN URINE Negative (Negative); *BARBITURATES SCREEN URINE Negative (Negative); *BENZODIAZEPINES SCREEN URINE Negative (Negative); Cannabinoids THC Negative (Negative); Cocaine Screen,Urine Negative (Negative); METHADONE URINE SCREEN Negative (Negative); OPIATES URINE SCREEN Negative (Negative)
[2018-08-10 11:35] LABS: Bacteria Rare HPF (Negative); Epithelial Cells Few HPF (Negative); RBC Negative (0-2); WBC 0-2 HPF (0-5)
[2018-08-10 11:36] LABS: C & S Indicated? Yes; Crystals Negative HPF (Negative); Mucus Trace (Negative); Tricyclic Antidepressants POSITIVE (Negative)
--- NOTE | 2018-08-10 12:54 | PDOC.MHCN ---
Date of service: 08/10/18 Time of Service: 12:54 Mental Health Crisis Note Presenting Issue How did you arrive at the ED and why did you come: Vimal is presenting with SI. She attempted an overdose last night at approximately 11:30PM. She arrived via ambulance to [facility] this morning. Precipitating Factors Vimal reported she has been having difficulty communicating with her family. She recently got a new cell phone and a new cell melissa number to avoid talking to her family. She Reported she had been feeling very sad and didn't want to live anymore. She stated, it's hard. When I think things can't get worse, they do. She is still currently suicidal. She denies HI. When this screener asked her if she would safe to go home she reported she would find a way to hurt herself. She also stated, 'I just want to go to [facility]. She is willing and open to voluntary hospitalization. Disposition BEHAVIOR: Appropriate. EYE CONTACT: Poor eye contact. Lethargic. MOOD: Depressed and visibly upset. AFFECT: Depressed. APPETITE: n/a SLEEP(trouble falling/staying asleep: n/a Plan The plan is to seek psychiatric hospitalization for stabilization. She is currently in the ED. A huddle was done with Joann Barrett DO, Airam Gomez, annealer, VU Fragoso and Lexy Frazier, VU Door Technician. A safety plan is in place. [facility] is accepting referrals, [facility] has bed availability, [facility] will call back with information, [facility] has no beds, and [facility] has one bed available--will send referral.
--- NOTE | 2018-08-10 13:02 | NUR.NOTE ---
Nursing Note:This commercial insurance underwriter has taken over the care of this patient from Fouzia WOMACK.
--- NOTE | 2018-08-10 13:43 | PDOC.MHCN_ITS ---
Date of service: 08/10/18 Time of Service: 12:54 Mental Health Crisis Note Presenting Issue How did you arrive at the ED and why did you come: Vimal is presenting with SI. She attempted an overdose last night at approximately 11:30PM. She arrived via ambulance to [facility] this morning. Precipitating Factors Vimal reported she has been having difficulty communicating with her family. She recently got a new cell phone and a new cell melissa number to avoid talking to her family. She Reported she had been feeling very sad and didn't want to live anymore. She stated, it's hard. When I think things can't get worse, they do. She is still currently suicidal. She denies HI. When this screener asked her if she would safe to go home she reported she would find a way to hurt herself. She also stated, 'I just want to go to [facility]. She is willing and open to voluntary hospitalization. Disposition BEHAVIOR: Appropriate. EYE CONTACT: Poor eye contact. Lethargic. MOOD: Depressed and visibly upset. AFFECT: Depressed. APPETITE: n/a SLEEP(trouble falling/staying asleep: n/a Plan The plan is to seek psychiatric hospitalization for stabilization. She is currently in the ED. A huddle was done with Joann Barrett DO, Airam Gomez, button cutter, VU Fragoso and Lexy Frazier, VU Conference Planner. A safety plan is in place. [facility] is accepting referrals, [place] has bed availability, [facility] will call back with information, [facility] has no beds, and [facility] has one bed available--will send referral.
--- NOTE | 2018-08-10 14:14 | CMPROGNOTE_ITS ---
- If Service Date Differs Date of service: 08/10/18 Time of Service: 14:13 Care Management Progress Note VOLUNTARY FOR INPATIENT PSYCHIATRIC STABILIZATION. Vimal is a 38 year old female admitted to [facility] ED history of anxiety, schizophrenia, paranoia and social anxiety who presents after intentional overdose of Vistaril and zqox-pyo-slfgrxs allergy medication last night. Vimal has an extensive psychiatric history with multiple hospitalizations. CM met with the patient. She states she is feeling a bit better but just wants to sleep. She requested a large amount of orange juice and coloring book and crayons for activities. Patient has been medically cleared and met with COMPRESS ENGINEER complex case manager who will try to find placement. Vimal has agreed to a voluntary admission to a psychiatric facility. CM reviewed safety plan with Moses.. She is appropriate in all interactions since arriving at [facility]; Pt has demonstrated appropriate coping and communication skills, has articulated her needs and concerns and is fully engaged during staff interactions. Safety plan has been established with patient, and care team, to adhere to patient goals, identify restrictions based on behavioral status, address nutrition, and determine allowed personal belongings, tools for hygiene and personal care. Determine level of activity including ambulation, level of supervision, visitors, and determine privileges based on behaviors and level of engagement by pt. Huddle: Fouzia RN, Emma Mederos, rn advanced, Airam Gomez RN CM, Deepali RAGSDALE, [facility], Mireya Frazier RN Deputy Sheriff Lieutenant SAFETY PLAN: 1. Will remain on suicide precautions. In Paper Clothes 2. Will remain in room under direct supervision of one-on-one staff at all times provided by CPSO; MARIO, GIN receiving worker. 3. May have paper cups, plates, finger foods as well as a cardboard spoon with which to eat meals. 4. Follow [facility] Management of the Admitted Behavioral Health Patient policy. 5. Comfort bath system only. 6. No personal belongings 7. Visitors-No visitors at this time per patient request 8. Activities: coloring book and crayons and TV if available. 9. Bathroom privileges under direct supervision 10. Phone: supervised calls only 11. No electronic devices 11. Due to VOLUNTARY status, if patient wishes to leave [facility], the [facility] harvest worker field crop must be contacted to re-evaluate patient prior to patient exiting the building. Patient is currently voluntarily at [facility] and seeking inpatient admission when a bed becomes available. [facility] Frontline Rn Informatics will continue seeking placement. Please contact the Card Mounter Collator Hand ([phone]) and [facility] Rn Informatics ([phone]) for any needed changes in the Safety Plan. Safety plan has been provided to interdepartmental care team. Patient will be transported by sales engineer when bed available.
--- NOTE | 2018-08-12 09:46 | NUR.NOTE ---
patient transferred to [facility], urine culture report faxed to [phone] Note:
== END 2018-08-10 18:17 | disposition short-term general hospital (02) ==
PROVIDERS: Emergency Provider Physician Assistant; PCP Family Medicine
DX: T43.592A Poisoning by other antipsychotics and neuroleptics, intentional self-harm, initial encounter (principal); F41.9 Anxiety disorder, unspecified; F20.9 Schizophrenia, unspecified; F40.10 Social phobia, unspecified; F22 Delusional disorders
CPT/HCPCS: 36415; 80053; 80307; 81025; 93005; 96374; 96375; 99285; 71045; 80320; 80329; 81003; 81015; 83735; 84484; 85025; 87086; 93010; J2060

== ENCOUNTER 2018-09-24 10:03 | Outpatient (CLI) | payer MEDICARE, MEDICAID, SELFPAY ==
[2018-09-24 11:00] LABS: Abs Immature Grans 0.01 k/cumm (0.0-0.09); Absolute Basophil Count 0.04 k/cumm (0.0-0.2); Absolute Eosinophil Count 0.28 k/cumm (0.0-0.7); Absolute Lymphocyte Count 1.69 k/cumm (1.2-3.4); Absolute Monocyte Count 0.52 k/cumm (0.11-0.7); Absolute Neutrophil Count 4.82 k/cumm (1.2-6.7); Basophils % 0.5; Eosinophils % 3.8; HCT 41.6 % (36.0-46.0); HGB 14.4 g/dL (12.0-15.5); Immature Grans % 0.1; Mean Corp. HGB Concentration 34.6 g/dL (32.0-36.0); Mean Corpuscular Hemoglobin 32.4 pg (27.0-33.0); Mean Corpuscular Volume 93.7 fL (80-95); Mean Platelet Volume 9.3 fL (8.0-11.0); Monocytes % 7.1; Neutrophils % 65.5; Platelet Count 313 x1000/uL (130-400); RBC 4.44 m/cumm (4.00-5.20); RBC Distribution Width 12.5 % (11.7-14.6); White Blood Cell Count 7.36 k/cumm (4.4-10.8)
== END 2018-09-24 10:23 ==
PROVIDERS: PCP Family Medicine; Visit Provider Nurse Practitioner Psychiatric/Mental Health
DX: F20.9 Schizophrenia, unspecified (principal); Z79.899 Other long term (current) drug therapy
CPT/HCPCS: 36415; 85025

== ENCOUNTER 2018-10-30 13:02 | Outpatient (CLI) | payer MEDICARE, MEDICAID, SELFPAY ==
[2018-10-30 14:26] LABS: Abs Immature Grans 0.02 k/cumm (0.0-0.09); Absolute Basophil Count 0.04 k/cumm (0.0-0.2); Absolute Eosinophil Count 0.33 k/cumm (0.0-0.7); Absolute Lymphocyte Count 1.92 k/cumm (1.2-3.4); Absolute Monocyte Count 0.55 k/cumm (0.11-0.7); Absolute Neutrophil Count 5.92 k/cumm (1.2-6.7); Basophils % 0.5; Eosinophils % 3.8; HCT 40.4 % (36.0-46.0); HGB 14.2 g/dL (12.0-15.5); Immature Grans % 0.2; Lymphocytes % 21.9; Mean Corp. HGB Concentration 35.1 g/dL (32.0-36.0); Mean Corpuscular Hemoglobin 33.2 pg (27.0-33.0); Mean Corpuscular Volume 94.4 fL (80-95); Mean Platelet Volume 9.4 fL (8.0-11.0); Monocytes % 6.3; Neutrophils % 67.3; Platelet Count 371 x1000/uL (130-400); RBC 4.28 m/cumm (4.00-5.20); RBC Distribution Width 12.4 % (11.7-14.6); White Blood Cell Count 8.78 k/cumm (4.4-10.8)
== END 2018-10-30 13:22 ==
LOC: LOS 13:09 → LBO 13:34
PROVIDERS: PCP Family Medicine; Visit Provider Nurse Practitioner Psychiatric/Mental Health
DX: F20.9 Schizophrenia, unspecified (principal); Z79.899 Other long term (current) drug therapy
CPT/HCPCS: 36415; 85025

== ENCOUNTER 2018-12-19 09:49 | Outpatient (CLI) | payer MEDICARE, MEDICAID, SELFPAY ==
[2018-12-19 13:38] LABS: Abs Immature Grans 0.01 k/cumm (0.0-0.09); Absolute Basophil Count 0.05 k/cumm (0.0-0.2); Absolute Eosinophil Count 0.31 k/cumm (0.0-0.7); Absolute Lymphocyte Count 2.17 k/cumm (1.2-3.4); Absolute Monocyte Count 0.83 k/cumm (0.11-0.7); Absolute Neutrophil Count 5.94 k/cumm (1.2-6.7); Basophils % 0.5; Eosinophils % 3.3; HCT 41.9 % (36.0-46.0); HGB 14.5 g/dL (12.0-15.5); Immature Grans % 0.1; Lymphocytes % 23.3; Mean Corp. HGB Concentration 34.6 g/dL (32.0-36.0); Mean Corpuscular Hemoglobin 33.3 pg (27.0-33.0); Mean Corpuscular Volume 96.1 fL (80-95); Monocytes % 8.9; Neutrophils % 63.9; Platelet Count 388 x1000/uL (130-400); RBC 4.36 m/cumm (4.00-5.20); White Blood Cell Count 9.31 k/cumm (4.4-10.8)
== END 2018-12-19 10:09 ==
PROVIDERS: PCP Family Medicine; Visit Provider Nurse Practitioner Psychiatric/Mental Health
DX: F20.9 Schizophrenia, unspecified (principal); Z79.899 Other long term (current) drug therapy
CPT/HCPCS: 36415; 85025

== ENCOUNTER 2018-12-31 13:13 | Emergency (ER) | payer MEDICARE, MEDICAID, SELFPAY ==
[2018-12-31 13:19] VITALS: BP 127/98; PULSE 89; RESP 20; TEMP 36.6; O2SAT 98
--- NOTE | 2018-12-31 13:36 | ED.GENADUL_ITS ---
Discharge Plan Disposition Patient Disposition: HOME Condition: Stable Discharge Details Chief Complaint: Headache Clinical Impression: Restlessness, Headache Primary Care Provider: Moo Robles ED Provider: Victoria Cuadra Home Meds and New Rx's Prescriptions: New lorazepam [Ativan] 1 mg tablet 1 mg PO DAILY PRN (Reason: agitation) Qty: 6 RF: 0 Continued lamotrigine 150 MG tablet 200 mg PO DAILY RF: 0 clozapine 100 MG tablet 200 mg PO HS RF: 0 trazodone 50 MG tablet 50 mg PO HS RF: 0 docusate sodium [Colace] 100 MG capsule 100 mg PO DAILY RF: 0 acetaminophen [Tylenol] 325 MG tablet 650 mg PO Q4H PRN PRNRF: 0 clonidine HCl 0.1 mg Tablet 0.1 mg PO BID RF: 0 naltrexone 50 mg Tablet 25 mg PO DAILY RF: 0 paroxetine HCl 40 mg Tablet 40 mg PO DAILY RF: 0 Discharge Instructions Instructions: Lorazepam (By mouth), Extrapyramidal Symptoms (ED), General Headache (ED) Additional Instructions: Please return immediately to the emergency department if you develop any new or worsening symptoms or if you become otherwise concerned. Please do not take Ativan more frequently than as prescribed. Do not take Ativan if you are driving or operating machinery, or make important decisions. Please do not take Ativan with alcohol, recreational drugs, or other sedating medications that are not currently prescribed for you. Please do not take Ativan within 4 hours of taking trazodone or clonidine. It is extremely important that you call soon as possible to make an appointment to be seen by her primary care doctor, and also that you see your mental health provider on Tuesday 01/02 as scheduled. Referrals: Moo Robles [Primary Care Provider] - Discharge Data Discharge Date/Time-TO BE ENTERED AT DEPARTURE: 12/31/18 16:09 Medical Decision Making Vimal Pimentel 38 y/o woman with with history of schizophrenia, high cholesterol, irritable bowel syndrome who presented to the emergency department with headache and sensation of restlessness over the past week. On exam patient is well and nontoxic appearing, but does appear restless, with voluntary movements of her arms continuously, and looks somewhat anxious. No cervical spine tenderness to palpation, neck is supple without meningismus. Her neurologic exam is nonfocal. Doubt meningitis, subarachnoid hemorrhage, however headache in setting of neck pain is somewhat concerning, also concern for benign headache, extraparametal effects of clozapine. Exam/history is not consistent with sepsis, serotonin syndrome, neuroleptic malignant syndrome, metabolic/lyte derangement, other infectious process, other acute emergent life-threatening process. Plan for CT head, Ativan, anticipate possible lumbar puncture. CT had negative. Patient reassessed. She reports feeling 100% better after Ativan. She has no further restlessness, she is sitting calmly and not moving. She does not appear anxious. Patient reports that her headache has resolved completely. She also has no further neck pain. At this time I have a very low suspicion for catastrophic cause of headache, however I did discuss my concerns for this possibility with the patient, and discussed risks and benefits of co ntinuing with lumbar puncture. Patient verbalized understanding the risks and declined any further evaluation or treatment in the emergency department, and stated repeatedly that her headaches are similar to what she has had in the past, and also now stated that she predominately came to the emergency department for her restlessness. Suspect akathisia secondary to clozapine. I do not plan to alter clozapine dosing given history of schizophrenia, patient also with appointment with her mental health provider within 48 hours. Plan for Ativan for symptomatic relief. I did discuss safe use of Ativan with the patient, including not taking her Ativan within 4 hours of taking clonidine or trazodone, she verbalizes understanding of the plan and is amenable. She denies any suicidality, and states that she was in a different place in the past when she had prior overdose. At this time I do feel that outpatient Ativan is indicated for her likely extrapyramidal symptoms, and that the risk of intentional overdose is very low. I had a lengthy discussion with the patient regarding safe benzodiazepine use, home care, return to emergency department precautions including red flags for which to return, and importance of outpatient follow-up with both her PCP and her mental health provider. Patient verbalized understanding the plan was amenable. All questions were answered. Patient was discharged home with clear plan for outpatient follow-up. Medical Records Medical records reviewed: Yes I reviewed the patient's medical records. Imaging Data Radiologic Study: Attestation: I personally reviewed and interpreted this imaging study as follows: Radiologist's impression: EXAM: CT HEAD WO CLINICAL HISTORY: headache COMPARISON: No exams were available for comparison FINDINGS: There is normal deng-white matter differentiation. No acute intracranial hemorrhage, midline shift, or mass effect is present. The ventricles are intact. The basilar cisterns are patent. The visualized paranasal sinuses are clear as are the mastoid air cells. The calvarium is intact. IMPRESSION: No acute intracranial process. The findings were discussed with the emergency room on the date of the examination. HPI General Mode of arrival: ambulatory . Date/Time Provider Initiated Documentation: 12/31/18 13:25 . Limitations to Documentation: no limitations . Information obtained by: patient, RN notes reviewed and old records reviewed . HPI Narrative: Vimal Pimentel is a 38 y/o woman with history of schizophrenia, high cholesterol, irritable bowel syndrome presenting to the emergency department with headache and sensation that she cannot sit still. Patient reports that she has had an intermittent headache over the past week and a half or so. She reports that pain is in the back of her head and seems to radiate up from her neck. She states that pain seems to be related to tension in her neck muscles. Patient also reports that she has had approximately 1 week of sensation that she cannot sit still. She reports that she always feels that she needs to be walking around in her house. She states that she has not had this sensation before. Patient reports that she has had similar headaches before in her life, states this is not the worst headache of her life. She denies eye pain, visual changes, fevers, any other pain, cough, shortness of breath, vomiting, diarrhea. Patient reports she has been on clozapine for approximately 8 years but has been tapering down over the past few months, she now takes 200 mg/day. Related Data Home Medications Medication Instructions Recorded Confirmed clozapine 200 mg PO HS 07/11/12 12/31/18 lamotrigine 200 mg PO DAILY 07/11/12 12/31/18 docusate sodium [Colace] 100 mg PO DAILY 07/23/17 12/31/18 trazodone 50 mg PO HS 07/23/17 12/31/18 acetaminophen [Tylenol] 650 mg PO Q4H PRN PRN tab 07/24/17 12/31/18 clonidine HCl 0.1 mg PO BID 08/10/18 12/31/18 naltrexone 25 mg PO DAILY 08/10/18 12/31/18 paroxetine HCl 40 mg PO DAILY 08/10/18 12/31/18 lorazepam [Ativan] 1 mg PO DAILY PRN #6 tab 12/31/18 Previous Rx's Medication Instructions Recorded acetaminophen [Tylenol] 650 mg PO Q4H PRN PRN tab 07/24/17 lorazepam [Ativan] 1 mg PO DAILY PRN #6 tab 12/31/18 Allergies Allergy/AdvReac Type Severity Reaction Status Date / Time niacin Allergy Intermediate Skin Rash Unverified 12/31/18 13:25 [From Niaspan Extended-Release] vilazodone [From Viibryd] AdvReac Intermediate Agitation Unverified 12/31/18 13:25 Penicillins AdvReac Mild RESTLESS Unverified 12/31/18 13:25 General Stated Complaint: Headache [place]OL[place]: 3 Review of Systems Narrative: Constitutional: denies fevers, reports restlessness Eyes: denies eye pain, visual changes ENT: denies facial pain, dental pain, sore throat Cardiovascular: denies chest pain Respiratory: denies SOB, cough GI: denies abdominal pain, vomiting, diarrhea : denies flank pain MSK: denies back pain, arthralgias, myalgias, reports neck pain Skin: denies rash Neuro: denies numbness, weakness, reports headache PFSH Social History Smoking/Tobacco Use Status: Current every day Tobacco Type: cigarettes Alcohol Intake: never Drug use: Never Substance use type: does not use Current gender identity: female Do you feel safe at home: Yes Do you feel safe in your relationship?: Yes Additional Social history: 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 Exam Narrative Exam Narrative: Constitutional: well and [id number], pleasant, conversing normally, mildly anxious, seems restless HENT: head atraumatic/normocephalic/normal inspection, mucous membranes moist Eyes: conjunctiva normal, sclera normal, pupils 3mm b/l Neck: no stridor, full painless ROM, trachea midline, mild tenderness palpation bilateral paraspinals, no bony cervical spine tenderness to palpation, negative Kernig's and Brudzinski sign Chest: normal inspection Resp: normal work of breathing, LCTAB Cardio: normal rate, normal rhythm, no murmur appreciated GI: abdomen soft, non-tender, non-distended Back: normal inspection, no rash Skin: warm, dry, normal color, no rash Neuro: alert, not altered, cranial nerves II through XII intact, motor 5 out of 5 bilaterally, normal tone, continuous voluntary movements of the upper extremities consistent with restlessness, no involuntary movements, she has no speech changes, normal tone, no cogwheeling, no clonus Ext: no edema no posterior calf tenderness to palpation Psych: normal mood, normal affect, normal behavior, no suicidality Course Vital Signs Vital signs: Vital Signs Temperature 36.6 C 12/31/18 13:19 Pulse 89 12/31/18 13:19 Respiratory Rate 20 12/31/18 13:19 Blood Pressure 127/98 H 12/31/18 13:19 Pulse Oximetry 98 12/31/18 13:19 Temperature 36.6 C 12/31/18 13:19 Temperature Source Temporal Artery Scan 12/31/18 13:19 Pulse 89 12/31/18 13:19 Respiratory Rate 20 12/31/18 13:19 Respiratory Effort Non-Labored 12/31/18 13:24 Blood Pressure 127/98 H 12/31/18 13:19 Blood Pressure Position Sitting 12/31/18 13:19 Pulse Oximetry 98 12/31/18 13:19 Oxygen Delivery Method Room Air 12/31/18 13:19 Oxygen Flow Rate 0 12/31/18 13:19 Pain Level 8 12/31/18 13:19 Lab/Test Results Lab/Test Results: POC- Test(urine) Negative
--- NOTE | 2018-12-31 14:23 | DI.CT_ITS ---
EXAM: CT HEAD WO CLINICAL HISTORY: headache COMPARISON: No exams were available for comparison FINDINGS: There is normal deng-white matter differentiation. No acute intracranial hemorrhage, midline shift, o r mass effect is present. The ventricles are intact. The basilar cisterns are patent. The visualized paranasal sinuses are clear as are the mastoid air cells. The calvarium is intact. IMPRESSION: No acute intracranial process. The findings were discussed with the emergency room on the date of the examination.
[2018-12-31] MEDS: LORazepam 1 MG TAB PO (14:45)
[2018-12-31 16:05] VITALS: BP 101/61; PULSE 89; RESP 18; TEMP 36.7; O2SAT 98
== END 2018-12-31 16:09 | disposition home or self-care (01) ==
PROVIDERS: Emergency Provider Student in an Organized Health Care Education/Training Program; PCP Family Medicine
DX: R45.1 Restlessness and agitation (principal); R51 Headache
CPT/HCPCS: 81025; 99284; 70450

== ENCOUNTER 2019-02-26 20:30 | Observation (INO) | payer MEDICARE, MEDICAID, SELFPAY ==
[2019-02-26 20:33] VITALS: BP 117/67; PULSE 98; RESP 18; TEMP 36.1; O2SAT 98
--- NOTE | 2019-02-26 20:37 | W.ED.GENAD ---
Discharge Plan Discharge Details Chief Complaint: PsychEval Primary Care Provider: Moo Robles ED Provider: Tano Simpson Home Meds and New Rx's Prescriptions: No Action lamotrigine 150 MG tablet 200 mg PO DAILY RF: 0 clozapine 100 MG tablet 200 mg PO HS RF: 0 trazodone 50 MG tablet 50 mg PO HS RF: 0 docusate sodium [Colace] 100 MG capsule 100 mg PO DAILY RF: 0 acetaminophen [Tylenol] 325 MG tablet 650 mg PO Q4H PRN PRNRF: 0 clonidine HCl 0.1 mg Tablet 0.1 mg PO BID RF: 0 naltrexone 50 mg Tablet 25 mg PO DAILY RF: 0 paroxetine HCl 40 mg Tablet 40 mg PO DAILY RF: 0 lorazepam [Ativan] 1 mg tablet 1 mg PO DAILY PRN (Reason: agitation) Qty: 6 RF: 0 Medical Decision Making This is a 38-year-old female with a past medical history of depression, schizophrenia, paranoia as well as previous overdose in the past with hospital admission presents today for evaluation of depression and suicidal ideations. Due to social pressure is she states that she wants to cut her wrists to hurt her self and overdose on medications to end her life. She denies any auditory or visual hallucinations. Exam is unremarkable. Vital signs stable. Patient appears medically cleared at this time. Will contact mental health, perform standard precautions for this scenario, with recommendation for potential admission. HPI General Date/Time Provider Initiated Documentation: 02/26/19 20:31. HPI Narrative: This is a 38-year-old female with a past medical history of depression, anxiety, schizophrenia, paranoia, as well as previous overdose in the past, as well as previous suicidal ideations. She presents today for evaluation of depression and suicidal ideations. Patient states that due to social pressures at home she has been thinking about taking her life. She wants to cut her arms to hurt her self and to overdose on medications to end her life. She denies any auditory or visual hallucinations but she does admit to having a racing mind. She denies any other complaints. She has taken her daily medications but has not taken any additional extra meds. She denies any alcohol use. She has no other complaints at this time. She was admitted a few months ago for mental health reasons. Related Data Home Medications Medication Instructions Recorded Confirmed clozapine 200 mg PO HS 07/11/12 12/31/18 lamotrigine 200 mg PO DAILY 07/11/12 12/31/18 docusate sodium [Colace] 100 mg PO DAILY 07/23/17 12/31/18 trazodone 50 mg PO HS 07/23/17 12/31/18 acetaminophen [Tylenol] 650 mg PO Q4H PRN PRN tab 07/24/17 12/31/18 clonidine HCl 0.1 mg PO BID 08/10/18 12/31/18 naltrexone 25 mg PO DAILY 08/10/18 12/31/18 paroxetine HCl 40 mg PO DAILY 08/10/18 12/31/18 lorazepam [Ativan] 1 mg PO DAILY PRN #6 tab 12/31/18 Previous Rx's Medication Instructions Recorded acetaminophen [Tylenol] 650 mg PO Q4H PRN PRN tab 07/24/17 lorazepam [Ativan] 1 mg PO DAILY PRN #6 tab 12/31/18 Allergies Allergy/AdvReac Type Severity Reaction Status Date / Time niacin Allergy Intermediate Skin Rash Unverified 12/31/18 13:25 [From Niaspan Extended-Release] vilazodone [From Viibryd] AdvReac Intermediate Agitation Unverified 12/31/18 13:25 Penicillins AdvReac Mild RESTLESS Unverified 12/31/18 13:25 General Stated Complaint: PsychEval [place]: 2 Review of Systems All systems reviewed & are unremarkable except as noted in HPI and below PFSH Social History Smoking/Tobacco Use Status: Current every day Tobacco Type: cigarettes Alcohol Intake: never Drug use: Never Substance use type: does not use Current gender identity: female Do you feel safe at home: Yes Do you feel safe in your relationship?: Yes Additional Social history: 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 Exam Narrative Exam Narrative: 1.Const: Well-nourished, Well-developed, appearing stated age 2.Eyes: PERRL, no conjunctival injection, and symmetrical lids. 3.ENT: Atraumatic external nose and ears. Moist MM. Neck: Symmetric, trachea midline, No thyromegaly. 4.CVS: +S1/S2, No murmurs or gallops. Peripheral pulses 2+ and equal in all extremities. Brisk capillary refill in all extremities. 5.RESP: Unlabored respiratory effort. Clear to auscultation bilaterally. No wheezes rales or rhonchi 6.GI: Soft, Nontender/Nondistended, No hepatosplenomegaly. No guarding or rebound. 7.MSK: Normocephalic/Atraumatic, Extremities w/o deformity or ttp No cyanosis or clubbing, Normal movement of all extremities 8.Skin: Warm, Dry. No rashes or lesions. 9.Neuro: heat set operator II-XII grossly intact. Sensation grossly intact, no focal neurologic deficits. 10.Psych: (AAO) x3. Appropriate mood and affect slightly anxious appearing. Course Vital Signs Vital signs: Vital Signs Temperature 36.1 C L 02/26/19 20:33 Pulse 98 H 02/26/19 20:33 Respiratory Rate 18 02/26/19 20:33 Blood Pressure 117/67 02/26/19 20:33 Pulse Oximetry 98 02/26/19 20:33 Temperature 36.1 C L 02/26/19 20:33 Pulse 98 H 02/26/19 20:33 Respiratory Rate 18 02/26/19 20:33 Blood Pressure 117/67 02/26/19 20:33 Blood Pressure Position Sitting 02/26/19 20:33 Pulse Oximetry 98 02/26/19 20:33 Oxygen Delivery Method Room Air 02/26/19 20:33 Oxygen Flow Rate 0 02/26/19 20:33 Pain Level 0 02/26/19 20:33
[2019-02-26 21:04] LABS: Bilirubin Negative (Negative); Blood Negative (Negative); Clarity Clear (Clear); Glucose Negative (Negative); Ketones Negative (Negative); Leukocyte Esterase Trace (Negative); Nitrite Negative (Negative); Urobilinogen 0.2 EU/dL (Up TO 0.2); pH 6.5 (5-8)
[2019-02-26 21:07] LABS: Abs Immature Grans 0.01 k/cumm (0.0-0.09); Absolute Basophil Count 0.04 k/cumm (0.0-0.2); Absolute Eosinophil Count 0.22 k/cumm (0.0-0.7); Absolute Lymphocyte Count 2.36 k/cumm (1.2-3.4); Absolute Monocyte Count 0.68 k/cumm (0.11-0.7); Absolute Neutrophil Count 5.76 k/cumm (1.2-6.7); Basophils % 0.4; Eosinophils % 2.4; HCT 40.2 % (36.0-46.0); HGB 13.8 g/dL (12.0-15.5); Immature Grans % 0.1; Mean Corp. HGB Concentration 34.3 g/dL (32.0-36.0); Mean Corpuscular Hemoglobin 32.7 pg (27.0-33.0); Mean Corpuscular Volume 95.3 fL (80-95); Mean Platelet Volume 9.5 fL (8.0-11.0); Monocytes % 7.5; Neutrophils % 63.6; Platelet Count 303 x1000/uL (130-400); RBC 4.22 m/cumm (4.00-5.20); RBC Distribution Width 11.8 % (11.7-14.6); White Blood Cell Count 9.07 k/cumm (4.4-10.8)
[2019-02-26 21:10] LABS: Bacteria Few HPF (Negative); C & S Indicated? Yes; Casts Negative LPF (Negative); Crystals Negative HPF (Negative); Epithelial Cells Few HPF (Negative); Mucus Negative (Negative); Other Cells Negative (Negative)
[2019-02-26 21:16] LABS: *AMPHETAMINES SCREEN URINE Negative (Negative); *BARBITURATES SCREEN URINE Negative (Negative); *BENZODIAZEPINES SCREEN URINE Negative (Negative); Cannabinoids THC Negative (Negative); Cocaine Screen,Urine Negative (Negative); METHADONE URINE SCREEN Negative (Negative); OPIATES URINE SCREEN Negative (Negative)
[2019-02-26 21:21] LABS: ALT 18 U/L (14-59); AST 12 U/L (15-37); Albumin 3.8 g/dL (3.4-5.0); Alkaline Phosphatase 77 U/L (46-116); Anion Gap 12.1 mmol/L (3-11); BUN 8 mg/dL (7-18); Bilirubin, Total 0.3 mg/dL (0.2-1.0); CO2 24.9 mmol/L (21.0-32.0); CREATININE 0.74 mg/dL (0.55-1.02); Calcium 8.8 mg/dL (8.5-10.1); Chloride 105 mmol/L (98-107); ETHANOL BLOOD < 3.0 mg/dL (<3); Glucose 116 mg/dL (74-106); Potassium 3.8 mmol/L (3.5-5.1); Sodium 142 mmol/L (136-145); TSH 2.68 uIU/mL (0.36-3.74); Total Protein 6.9 g/dL (6.4-8.2)
[2019-02-26 21:24] LABS: Tricyclic Antidepressants Negative (Negative)
[2019-02-26 21:45] LABS: Acetaminophen < 2 ug/mL (10-30)
--- NOTE | 2019-02-26 23:15 | NUR.NOTE ---
pt will not cooperate with nurse while attempting to complete med rec. Meds or allergies not verified. Nursing Note:
[2019-02-26 23:40] VITALS: BP 91/59; PULSE 88; RESP 17; TEMP 36.9; O2SAT 97
--- NOTE | 2019-02-26 23:51 | CMSP_ITS ---
- If Service Date Differs Date of service: 02/26/19 Time of Service: 23:52 Care Management Safety Plan CM was contacted by ED after patient was admitted to the medical surgical unit mental health is not available to review patient or huddle on patient. There are no mental health notes available in the patients chart at time of interim safety plan written by CM. CM reviewed chart and knows patient well from multiple admissions. Vimal has a history of Paranoid schizophrenia, multiple admission for SI and prior overdose as well as a history of anxiety. She is a [employer] client and receives community care management through [employer], Deepali Oquendo is her community education specialist per prior notes. According to ED Provider note patient is seeking inpatient treatment for psychiatric stabilization and is voluntary. Once mental health screener deems patient meets criteria for psychiatric stabilization CM will facilitate interdepartmental huddle with [facility] screener for safety planning considerations and meet with patient to review [facility] policy and safety plan, establish individual wishes for treatment and maintain patient rights. CM did review the safety plan and patients assessment with VU Mcginnis RN. Vimal will have SI protocol in place including a CPSO at all times. In the interim; please note safety plan below to guide patient care while awaiting further assessment by mental health and established plan. SAFETY PLAN: 1. Will remain on suicide precautions and in paper clothes. 2. Will remain in room under direct supervision of one-on-one staff at all times provided by [employer] MARIO, [employer] forming machine tender. 3. May have paper cups, plates, finger foods as well as a metal spoon with which to eat meals. [facility] staff will be responsible for accounting of utensils after meals. 4. Follow [facility] Management of the Admitted Behavioral Health Patient policy. 5. Comfort bath or shower with qualified supervision. 6. No personal belongings 7. No visitors. 8. Phone privilege at the discretion of primary care team 9. Patient may have television in the room, reading materials, coloring and crayons. 10.. Due to VOLUNTARY status, if patient wishes to leave [facility], the [facility] community center worker must be contacted to re-evaluate patient prior to patient exiting the building. If deemed appropriate for inpatient psychiatric care by mental health crisis, safety plan will be established with patient, and care team, to adhere to patient goals, identify restrictions based on behavioral status, address nutrition, and determine allowed personal belongings, tools for hygiene and personal care. As well plan will determine level of activity including ambulation, level of supervision, visitors, and determine privileges based on level of acuity, behaviors and level of engagement by patient.
[2019-02-27 00:32] VITALS: BP 85/56
[2019-02-27 00:50] VITALS: BP 112/50
[2019-02-27 02:00] VITALS: BP 96/52
[2019-02-27 03:36] VITALS: BP 100/61; PULSE 71; RESP 16; TEMP 36.7; O2SAT 97
--- NOTE | 2019-02-27 05:38 | W.PM.HP.N ---
Date of service: 02/27/19 Time of Service: 05:39 Assessment and Plan Assessment and plan (1) Depression: Status: Chronic Assessment and plan: Depression with suicidal ideation. Will maintain on suicide precautions and await transfer to psychiatric facility. Please note that we have no confirmation on any of patient medications (except she does identify that she takes Trazadone). She apparently brought in a Pill Minder box and will ask pharmacy to try to identify the medications. History of Present Illness History of Present Illness Chief Complaint: suicidal Narrative: 38 female with h/o depression, here with suicidal thinking related (she says) to the stress of the holidays; no specific incident or factor. Has thought of taking extra pills but has taken no actions. In ER was medically cleared and agrees to voluntary admission. no outside bed availability so admitted here pending disposition. Review of Systems All systems reviewed & are unremarkable except as noted in HPI and below PFSH Social History Smoking/Tobacco Use Status: Current every day Tobacco Type: cigarettes Alcohol Intake: never Drug use: Never Substance use type: does not use Current gender identity: female Do you feel safe at home: Yes Do you feel safe in your relationship?: Yes Additional Social history: 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 Meds Home Medications and Allergies Home Medications Medication Instructions Recorded Confirmed Type clozapine 200 mg PO HS 07/11/12 12/31/18 History lamotrigine 200 mg PO DAILY 07/11/12 12/31/18 History docusate sodium [Colace] 100 mg PO DAILY 07/23/17 12/31/18 History trazodone 50 mg PO HS 07/23/17 12/31/18 History acetaminophen [Tylenol] 650 mg PO Q4H PRN PRN tab 07/24/17 12/31/18 Rx clonidine HCl 0.1 mg PO BID 08/10/18 12/31/18 History naltrexone 25 mg PO DAILY 08/10/18 12/31/18 History paroxetine HCl 40 mg PO DAILY 08/10/18 12/31/18 History lorazepam [Ativan] 1 mg PO DAILY PRN #6 tab 12/31/18 Rx Allergies Allergy/AdvReac Type Severity Reaction Status Date / Time niacin Allergy Intermediate Skin Rash Unverified 12/31/18 13:25 [From Niaspan Extended-Release] vilazodone [From Viibryd] AdvReac Intermediate Agitation Unverified 12/31/18 13:25 Penicillins AdvReac Mild RESTLESS Unverified 12/31/18 13:25 Exam Narrative Exam Narrative: 100/61, 71, 36.7, 16. HEENT AT/NC; neck supple; lungs clear; heart RRR; abdomen soft and NT; extremities w/o edema; neuro Ox3, non-focal Results Labs Result diagrams: 02/26/19 20:44 02/26/19 20:44 Labs: Laboratory Results - last 24 hr 02/26/19 02/26/19 02/26/19 20:44 20:44 20:44 WBC 9.07 RBC 4.22 Hgb 13.8 Hct 40.2 MCV 95.3 H MCH 32.7 MCHC 34.3 RDW 11.8 Plt Count 303 MPV 9.5 Immature Gran % 0.1 Neutrophils % 63.6 Lymphocytes % 26.0 Monocytes % 7.5 Eosinophils % 2.4 Basophils % 0.4 Absolute Neutrophils 5.76 Absolute Lymphocytes 2.36 Absolute Monocytes 0.68 Absolute Eosinophils 0.22 Absolute Basophils 0.04 Sodium 142 Potassium 3.8 Chloride 105 Carbon Dioxide 24.9 Anion Gap 12.1 H BUN 8 Creatinine 0.74 Estimated GFR/1.73 m2 >= 60.00 Glucose 116 H Calcium 8.8 Total Bilirubin 0.3 AST 12 L ALT 18 Alkaline Phosphatase 77 Total Protein 6.9 Albumin 3.8 TSH 2.68 Urine Color Urine Clarity Urine pH Ur Specific [place] Urine Protein Urine Ketones Urine Blood Urine Nitrite Urine Bilirubin Urine Urobilinogen Ur Leukocyte Esterase Urine RBC Urine WBC Ur Epithelial Cells Urine Crystals Urine Bacteria Urine Casts Urine Mucus Urine Other Ur Culture Indicated? Urine Glucose Salicylates 4.0 Urine Opiates Screen Urine Methadone Screen Acetaminophen < 2 L Ur Barbiturates Screen Ur Tricyclics Screen Ur Amphetamines Screen U Benzodiazepines Scrn Urine Cocaine Screen Ur THC Screen Ethyl Alcohol < 3.0 02/26/19 02/26/19 20:50 20:50 WBC RBC Hgb Hct MCV MCH MCHC RDW Plt Count MPV Immature Gran % Neutrophils % Lymphocytes % Monocytes % Eosinophils % Basophils % Absolute Neutrophils Absolute Lymphocytes Absolute Monocytes Absolute Eosinophils Absolute Basophils Sodium Potassium Chloride Carbon Dioxide Anion Gap BUN Creatinine Estimated GFR/1.73 m2 Glucose Calcium Total Bilirubin AST ALT Alkaline Phosphatase Total Protein Albumin TSH Urine Color Yellow Urine Clarity Clear Urine pH 6.5 Ur Specific [place] 1.020 Urine Protein Negative Urine Ketones Negative Urine Blood Negative Urine Nitrite Negative Urine Bilirubin Negative Urine Urobilinogen 0.2 Ur Leukocyte Esterase Trace H Urine RBC 3-5 H Urine WBC 3-5 Ur Epithelial Cells Few Urine Crystals Negative Urine Bacteria Few Urine Casts Negative Urine Mucus Negative Urine Other Negative Ur Culture Indicated? Yes Urine Glucose Negative Salicylates Urine Opiates Screen Negative Urine Methadone Screen Negative Acetaminophen Ur Barbiturates Screen Negative Ur Tricyclics Screen Negative Ur Amphetamines Screen Negative U Benzodiazepines Scrn Negative Urine Cocaine Screen Negative Ur THC Screen Negative Ethyl Alcohol Last Vital Signs Temp 36.7 C 02/27/19 03:36 Pulse 71 02/27/19 03:36 Resp 16 02/27/19 03:36 BP 100/61 02/27/19 03:36 Pulse Ox 97 02/27/19 03:36
[2019-02-27 07:43] VITALS: BP 88/58; PULSE 94; RESP 16; TEMP 37.5; O2SAT 97
[2019-02-27 09:54] LABS: HCG Qual (Urine) Negative
--- NOTE | 2019-02-27 10:03 | NUR.NOTE ---
Nursing Note: Access [facility] Chart Per Med/surg Request for Medication list per Doctor veronica.
--- NOTE | 2019-02-27 10:27 | PDOC.MHCN ---
Date of service: 02/27/19 Time of Service: 09:45 Mental Health Crisis Note Presenting Issue How did you arrive at the ED and why did you come: Patient arrives to [facility] voluntarily with c/c of mixed anxiety / depression with persistent suicidal ideation. 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 The patient reports active and persistent suicidal ideation with several proposed methods including: medication OD, slitting wrists in bathtub, driving vehicle off bridge. She identifies isolation as a primary trigger and states that I don't want to be alone right now. I don't know what I'll do. Associations are intact, thinking is logical, and insight is fair. Patient reports that she is experiencing racing thoughts lending to instability of mood and advises that she has not received her morning anxiety medications. She denies hallucinations or delusions. Hx / other: Patient reports history of self-harming behaviors (cutting) and prior hospitalizations for SI. Based on presentation and reported history, severity / level of risk is estimated to be moderate / high. It is recommended that patient be admitted for in-patient treatment for safety and mood stabilization. Disposition BEHAVIOR: Body posture and general demeanor convey a degree of nervous agitation / anxiety. Patient is otherwise appropriate in all interactions. EYE CONTACT: Avoidant MOOD: Anxious AFFECT: Congruent to mood APPETITE: No reported issues SLEEP(trouble falling/staying asleep: No reported issues Plan Seek in-patient hospitalization for safety and mood stabilization. Provisional Diagnosis 309.28 Adjustment Disorders (F43.23) With mixed anxiety and depressed mood Signature Clinician's Name/Title: Portillo Shaffer BA, [facility] Emergency Photographic Processor
[2019-02-27] MEDS: Multivitamin TAB 1 TAB PO (12:56)
[2019-02-27] MEDS: Omega-3 Fatty Acids 1000 MG CAP PO ×2 (12:56→19:52)
[2019-02-27] MEDS: Docusate Sodium 100 MG CAP PO (12:56)
[2019-02-27] MEDS: PARoxetine 20 MG TAB 40 MG PO (12:57)
[2019-02-27] MEDS: LORazepam 0.5 MG TAB PO ×4 (13:04→19:45)
[2019-02-27] MEDS: Magnesium Oxide 400 MG TAB PO ×2 (13:05→19:44)
--- NOTE | 2019-02-27 14:46 | PDOC.CMPRO ---
- If Service Date Differs Date of service: 02/27/19 Time of Service: 14:46 Care Management Progress Note Vimal has a history of Paranoid schizophrenia, multiple admission for SI and prior overdose as well as a history of anxiety. 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 Vimal was sitting up in bed when CM met with her. She was pleasant and cooperative and engaged well with CM, maintaining good eye contact. Jose stated that she is feeling much better than yesterday but is not ready to be alone. She stated that she would not feel safe at home but that she does here. Seen by Basim from this morning. Olivia stated they never received any paperwork last night, so clinical information was re-faxed this morning. As of 3 pm there is no word back about bed availability. Vimal's LEGAL ANALYST worker Kj came to see her and was also able to provide an updated medication list. All appropriate medications were ordered and are being administered. Vimal did state that she was anxious so was given a prn dose of lorazepam. VOLUNTARY FOR INPATIENT PSYCHIATRIC STABILIZATION. Patient is appropriate in all interactions since arriving at [facility]; patient has demonstrated good coping and communication skills, has articulated her needs and concerns and is fully engaged during staff interactions. Safety Plan has been established with patient and care team to adhere to goals, identify restrictions based on behavioral status, address nutrition, and determine allowed personal belongings and tools for hygiene and personal care. Determine level of activity, level of supervision, visitors, and determine privileges based on behavior and level of engagement by patient. TIEN facilitated an interdepartmental huddle with Brenda, Nursing workers compensation claims supervisor, VU Kessler, Tameka KURTZ and Emma CHAUHAN and the safety plan was revised as below. SAFETY PLAN: 1. Will remain on suicide precautions and in paper clothes. 2. Will remain in room or may ambulate in the halls under direct supervision of one-on-one staff at all times provided by [facility], [place] information resource consultant. 3. May have paper cups, plates, finger foods as well as a metal spoon with which to eat meals. [facility] staff will be responsible for accounting of utensils after meals. 4. Follow [facility] Management of the Admitted Behavioral Health Patient policy. 5. Comfort bath or shower with qualified supervision. 6.Personal belongings: may have personal cell phone and may use makeup with direct supervision of staff at the discretion of primary care team. 7. Friend Amari KatySantos may visit. 8. Patient may have television in the room, reading materials, coloring, word search and crayons. 9. Due to VOLUNTARY status, if patient wishes to leave [facility], the [facility] coffee plantation worker must be contacted to re-evaluate patient prior to patient exiting the building. Patient was deemed appropriate for inpatient psychiatric care by mental health crisis, and above safety plan was established with patient, and care team..
--- NOTE | 2019-02-27 15:17 | PDOC.CMSAFE ---
- If Service Date Differs Date of service: 02/27/19 Time of Service: 15:17 Care Management Safety Plan VOLUNTARY FOR INPATIENT PSYCHIATRIC STABILIZATION. Patient is appropriate in all interactions since arriving at [facility]; patient has demonstrated good coping and communication skills, has articulated her needs and concerns and is fully engaged during staff interactions. Safety Plan has been established with patient and care team to adhere to goals, identify restrictions based on behavioral status, address nutrition, and determine allowed personal belongings and tools for hygiene and personal care. Determine level of activity, level of supervision, visitors, and determine privileges based on behavior and level of engagement by patient. CM facilitated an interdepartmental huddle with Brenda, Nursing wax room supervisor, VU Kessler, Tameka KURTZ and Emma CHAUHAN and the safety plan was revised as below. SAFETY PLAN: 1. Will remain on suicide precautions and in paper clothes. 2. Will remain in room or may ambulate in the halls under direct supervision of one-on-one staff at all times provided by [facility], [place] director of architecture. 3. May have paper cups, plates, finger foods as well as a metal spoon with which to eat meals. [facility] staff will be responsible for accounting of utensils after meals. 4. Follow [facility] Management of the Admitted Behavioral Health Patient policy. 5. Comfort bath or shower with qualified supervision. 6.Personal belongings: may have personal cell phone and may use makeup with direct supervision of staff at the discretion of primary care team. 7. Friend Amari Trevizo may visit. 8. Patient may have television in the room, reading materials, coloring, word search and crayons. 9. Due to VOLUNTARY status, if patient wishes to leave [facility], the [facility] grizzly worker must be contacted to re-evaluate patient prior to patient exiting the building. Patient was deemed appropriate for inpatient psychiatric care by mental health crisis, and above safety plan was established with patient, and care team.. cc: Dictated by: Emma Cordoba Dictated: 02/27/19 Time: 1446 <Electronically signed by Emma Mederos > Date: 02/27/19 [id number]
--- NOTE | 2019-02-27 16:19 | W.PM.PROGNOT ---
Date of Service Date of service: 02/27/19 Time of Service: 16:19 Subjective Subjective Interval history since last seen: Ms Loren feels anxious - like I should be doing something. She was seen earlier today and requested all her medications, which were at that point verified by pharmacy. She denies dizziness, chest pain, shortness of breath, nausea, vomiting. She is still having suicidal thoughts. Bed is expected to be available tomorrow morning at [facility]. Objective Objective Clinical Data: Abnormal lab results 02/26/19 02/26/19 02/26/19 Range/Units 20:44 20:44 20:44 MCV 95.3 H (80-95) fL Anion Gap 12.1 H (3-11) mmol/L Glucose 116 H (74-106) mg/dL AST 12 L (15-37) U/L Ur Leukocyte Esterase (Negative) Urine RBC (0-2) HPF Acetaminophen < 2 L (10-30) ug/mL 02/26/19 Range/Units 20:50 MCV (80-95) fL Anion Gap (3-11) mmol/L Glucose (74-106) mg/dL AST (15-37) U/L Ur Leukocyte Esterase Trace H (Negative) Urine RBC 3-5 H (0-2) HPF Acetaminophen (10-30) ug/mL Vital Signs Temperature 37.5 C 02/27/19 07:43 Temperature Source Tympanic 02/27/19 07:43 Pulse 94 H 02/27/19 07:43 Pulse Rhythm Regular 02/27/19 13:54 Respiratory Rate 16 02/27/19 07:43 Respiratory Effort Non-Labored 02/27/19 13:54 Respiratory Depth Normal 02/27/19 13:54 Respiratory Pattern Normal 02/27/19 13:54 Blood Pressure 88/58 L 02/27/19 07:43 Blood Pressure Position Sitting 02/26/19 20:33 Pulse Oximetry 97 02/27/19 07:43 Oxygen Delivery Method Room Air 02/27/19 07:43 Oxygen Flow Rate 0 02/27/19 07:43 Pain Level 10 02/27/19 14:18 Comment 02/27/19 07:43 Intake & Output 02/26/19 02/27/19 02/27/19 23:59 11:59 23:59 Weight 79.379 kg Other: Comment pt voiding ad kym; urine not assessed by RN at this time Voiding Methods Toilet Toilet Laboratory Results WBC 9.07 k/cumm (4.4-10.8) 02/26/19 20:44 RBC 4.22 m/cumm (4.00-5.20) 02/26/19 20:44 Hgb 13.8 g/dL (12.0-15.5) 02/26/19 20:44 Hct 40.2 % (36.0-46.0) 02/26/19 20:44 MCV 95.3 fL (80-95) H 02/26/19 20:44 MCH 32.7 pg (27.0-33.0) 02/26/19 20:44 MCHC 34.3 g/dL (32.0-36.0) 02/26/19 20:44 RDW 11.8 % (11.7-14.6) 02/26/19 20:44 Plt Count 303 x1000/uL (130-400) 02/26/19 20:44 MPV 9.5 fL (8.0-11.0) 02/26/19 20:44 Immature Gran % 0.1 02/26/19 20:44 Neutrophils % 63.6 02/26/19 20:44 Lymphocytes % 26.0 02/26/19 20:44 Monocytes % 7.5 02/26/19 20:44 Eosinophils % 2.4 02/26/19 20:44 Basophils % 0.4 02/26/19 20:44 Absolute Neutrophils 5.76 k/cumm (1.2-6.7) 02/26/19 20:44 Absolute Lymphocytes 2.36 k/cumm (1.2-3.4) 02/26/19 20:44 Absolute Monocytes 0.68 k/cumm (0.11-0.7) 02/26/19 20:44 Absolute Eosinophils 0.22 k/cumm (0.0-0.7) 02/26/19 20:44 Absolute Basophils 0.04 k/cumm (0.0-0.2) 02/26/19 20:44 Sodium 142 mmol/L (136-145) 02/26/19 20:44 Potassium 3.8 mmol/L (3.5-5.1) 02/26/19 20:44 Chloride 105 mmol/L (98-107) 02/26/19 20:44 Carbon Dioxide 24.9 mmol/L (21.0-32.0) 02/26/19 20:44 Anion Gap 12.1 mmol/L (3-11) H 02/26/19 20:44 BUN 8 mg/dL (7-18) 02/26/19 20:44 Creatinine 0.74 mg/dL (0.55-1.02) 02/26/19 20:44 Estimated GFR/1.73 m2 >= 60.00 (mL/min/1.73m2) 02/26/19 20:44 Glucose 116 mg/dL (74-106) H 02/26/19 20:44 Calcium 8.8 mg/dL (8.5-10.1) 02/26/19 20:44 Total Bilirubin 0.3 mg/dL (0.2-1.0) 02/26/19 20:44 AST 12 U/L (15-37) L 02/26/19 20:44 ALT 18 U/L (14-59) 02/26/19 20:44 Alkaline Phosphatase 77 U/L (46-116) 02/26/19 20:44 Total Protein 6.9 g/dL (6.4-8.2) 02/26/19 20:44 Albumin 3.8 g/dL (3.4-5.0) 02/26/19 20:44 TSH 2.68 uIU/mL (0.36-3.74) 02/26/19 20:44 Urine Color Yellow (Yellow) 02/26/19 20:50 Urine Clarity Clear (Clear) 02/26/19 20:50 Urine pH 6.5 (5-8) 02/26/19 20:50 Ur Specific [place] 1.020 (1.005-1.025) 02/26/19 20:50 Urine Protein Negative mg/dL (Negative) 02/26/19 20:50 Urine Ketones Negative mg/dL (Negative) 02/26/19 20:50 Urine Blood Negative (Negative) 02/26/19 20:50 Urine Nitrite Negative (Negative) 02/26/19 20:50 Urine Bilirubin Negative (Negative) 02/26/19 20:50 Urine Urobilinogen 0.2 EU/dL (Up TO 0.2) 02/26/19 20:50 Ur Leukocyte Esterase Trace (Negative) H 02/26/19 20:50 Urine RBC 3-5 HPF (0-2) H 02/26/19 20:50 Urine WBC 3-5 HPF (0-5) 02/26/19 20:50 Ur Epithelial Cells Few HPF (Negative) 02/26/19 20:50 Urine Crystals Negative HPF (Negative) 02/26/19 20:50 Urine Bacteria Few HPF (Negative) 02/26/19 20:50 Urine Casts Negative LPF (Negative) 02/26/19 20:50 Urine Mucus Negative (Negative) 02/26/19 20:50 Urine Other Negative (Negative) 02/26/19 20:50 Ur Culture Indicated? Yes 02/26/19 20:50 Urine Glucose Negative mg/dL (Negative) 02/26/19 20:50 Urine HCG, Qual Negative 02/26/19 20:50 Salicylates 4.0 mg/dL (2.8-20.0) 02/26/19 20:44 Urine Opiates Screen Negative (Negative) 02/26/19 20:50 Urine Methadone Screen Negative (Negative) 02/26/19 20:50 Acetaminophen < 2 ug/mL (10-30) L 02/26/19 20:44 Ur Barbiturates Screen Negative (Negative) 02/26/19 20:50 Ur Tricyclics Screen Negative (Negative) 02/26/19 20:50 Ur Amphetamines Screen Negative (Negative) 02/26/19 20:50 U Benzodiazepines Scrn Negative (Negative) 02/26/19 20:50 Urine Cocaine Screen Negative (Negative) 02/26/19 20:50 Ur THC Screen Negative (Negative) 02/26/19 20:50 Ethyl Alcohol < 3.0 mg/dL (<3) 02/26/19 20:44
[2019-02-27 16:21] VITALS: BP 87/55; PULSE 80; RESP 16; TEMP 36.9; O2SAT 97
[2019-02-27] MEDS: Melatonin 3 MG TAB 1.5 MG PO (19:43)
[2019-02-27] MEDS: Benztropine 1 MG TAB 0.5 MG PO (19:44)
[2019-02-27] MEDS: lamoTRIgine 25 MG TAB 50 MG PO (19:45)
[2019-02-27] MEDS: lamoTRIgine 100 MG TAB 200 MG PO (19:45)
[2019-02-27] MEDS: traZODone 50 MG TAB PO (19:46)
[2019-02-28] MEDS: Docusate Sodium 100 MG CAP PO (08:20)
[2019-02-28] MEDS: PARoxetine 20 MG TAB 40 MG PO (08:20)
[2019-02-28] MEDS: Magnesium Oxide 400 MG TAB PO (08:20)
[2019-02-28] MEDS: LORazepam 0.5 MG TAB PO (08:21)
[2019-02-28] MEDS: Multivitamin TAB 1 TAB PO (08:21)
[2019-02-28] MEDS: Omega-3 Fatty Acids 1000 MG CAP PO (08:25)
[2019-02-28 09:03] VITALS: BP 99/57; PULSE 91; RESP 22; TEMP 36.6; O2SAT 97
--- NOTE | 2019-02-28 10:41 | DSE_ITS ---
Date of service: 02/28/19 Time of Service: 10:41 DS: Diagnosis Discharge Diagnosis (1) Depression: Start date: 02/28/19 Start time: 10:41 Status: Chronic Asessment and Plan: Transfer to [place] for voluntary status due to depression Discharge Plan Disposition Patient Disposition: [facility] Condition: Stable Discharge Details Chief Complaint: PsychEval Clinical Impression: Depression, Suicidal ideation Reason For Visit: DEPRESSION, SUICIDAL IDEATION Admit Date/Time: 02/26/19 22:47 Admit Provider: Ancelmo Anton Attending Provider: Ancelmo Anton Primary Care Provider: Moo Robles ED Provider: Tano Simpson Hospital Course Hospital Course: 38 y.o female admitted to [facility] from ED for depression. Suicidal Ideation with taking pills, though no action taken. Medically cleared by ED and has been awaiting placement for voluntary status. Today she has been accepted to [facility]. She continues to have SI thoughts. She denies CP, N/V/D. Home Meds and New Rx's Prescriptions: Continued trazodone 50 MG tablet 50 mg PO HS RF: 0 docusate sodium [Colace] 100 MG capsule 100 mg PO DAILY RF: 0 acetaminophen [Tylenol] 325 MG tablet 650 mg PO Q4H PRN PRNRF: 0 paroxetine HCl 40 mg Tablet 40 mg PO DAILY RF: 0 multivitamin Tablet 1 tab PO QAM RF: 0 benztropine 0.5 mg Tablet 0.5 mg PO HS RF: 0 melatonin 3 mg Tablet 1.5 mg PO HS RF: 0 lamotrigine 25 mg Tablet 50 mg PO HS RF: 0 lorazepam 0.5 mg Tablet 0.5 mg PO BID RF: 0 ranitidine HCl 150 mg Tablet 150 mg PO BID PRN PRN (Reason: Heartburn) RF: 0 lamotrigine 100 mg Tablet 200 mg PO HS RF: 0 naproxen 500 mg Tablet 500 mg PO BID PRN PRN (Reason: Pain) RF: 0 levomefolate calcium [L-Methylfolate] 15 mg Tablet 15 mg PO QAM RF: 0 omega [id number] oil [Fish Oil] 1,000 mg (120 mg-180 mg) Capsule 1 cap PO TID RF: 0 Vraylar 3 mg Capsule 3 mg PO QAM RF: 0 magnesium oxide 400 mg magnesium Tablet 400 mg PO BID RF: 0 Discharge Instructions Instructions: Depression (DC), Suicide Prevention for Adults (DC) Activity:: Activity as Tolerated Equipment/Supplies:: No Equipment Needed Diet:: As Tolerated Discharge Orders Discharge Orders: Discharge Order (Routine); Ordered 02/28/19 Ordered By: Tayler Wheatley DS: Summary Status at Discharge Functional status at discharge: independent ambulation Overall status at discharge: other Mental Status: mental status grossly normal and other Speech and Movement: speech and movement normal Mood: other Affect: normal affect Exam Narrative Exam Narrative: HEENT AT/NC; neck supple; lungs clear; heart RRR; abdomen soft and NT; extremities w/o edema; neuro Ox3, non-focal Psych Mental Status: mental status grossly normal and other Speech and Movement: speech and movement normal Mood: other Affect: normal affect DS: Data Vitals/I&O Vitals and I&O: Vital Signs Temperature 36.6 C 02/28/19 09:03 Temperature Source Temporal Artery Scan 02/28/19 09:03 Pulse 91 H 02/28/19 09:03 Pulse Rhythm Regular 02/28/19 08:49 Respiratory Rate 22 02/28/19 09:03 Respiratory Effort Non-Labored 02/28/19 08:49 Respiratory Depth Normal 02/28/19 08:49 Respiratory Pattern Normal 02/28/19 08:49 Blood Pressure 99/57 L 02/28/19 09:03 Blood Pressure Position Sitting 02/26/19 20:33 Pulse Oximetry 97 02/28/19 09:03 Oxygen Delivery Method Room Air 02/28/19 09:03 Oxygen Flow Rate 0 02/28/19 09:03 Pain Level 0 02/27/19 16:21 Comment 02/28/19 09:03 Intake & Output 02/27/19 02/27/19 02/28/19 11:59 23:59 11:59 Intake Total 500 / 500 300 / 300 Balance 500 / 500 300 / 300 Intake: Oral 500 / 500 300 / 300 Other: Comment pt up to the bathroom independently Voiding Methods Toilet Toilet Toilet [facility] Social History Smoking/Tobacco Use Status: Current every day Tobacco Type: cigarettes Alcohol Intake: never Drug use: Never Substance use type: does not use Current gender identity: female Do you feel safe at home: Yes Do you feel safe in your relationship?: Yes Additional Social history: 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
--- NOTE | 2019-02-28 14:15 | PDOC.CMDIS ---
- If Service Date Differs Date of service: 02/28/19 Time of Service: 14:15 LACE Index Scoring Tool - Questions: Length of Stay (in days): 2 Acuity (Admit via E.D.?): Yes E.D. Visits: 6 - Answers: Total Score: 9 Risk of Readmission: Low Risk Care Management Discharge Reason for Hospitalization: suicidal ideation Discharge Plan: Vimal is going to be transferred to [facility] for inpatient psychiatric stabilization. She will follow up with the providers and plan of care established at [place]. She will transport via [facility] coordinated by CM. Patient/Family Education Needs: Expectations, limitations - MH Services (Omit if N/A) Current MH Services: Psychiatric Inp ([facility])
== END 2019-02-28 12:56 | disposition short-term general hospital (02) ==
LOC: ER 23:16 → MS 23:27
PROVIDERS: Admitting Provider General Practice; Emergency Provider Student in an Organized Health Care Education/Training Program; PCP Family Medicine; Visit Provider Internal Medicine
DX: F32.9 Major depressive disorder, single episode, unspecified (principal); R45.851 Suicidal ideations; F17.210 Nicotine dependence, cigarettes, uncomplicated; Z63.79 Other stressful life events affecting family and household
CPT/HCPCS: 36415; 80053; 80307; 81025; 99222; 99239; 99285; NC; 80320; 80329; 81003; 81015; 84443; 85025; 87086; 99217; 99218; 99284; G0378

== ENCOUNTER 2019-04-16 09:07 | Outpatient (CLI) | payer MEDICARE, MEDICAID, SELFPAY ==
[2019-04-16 11:18] LABS: Abs Immature Grans 0.01 k/cumm (0.0-0.09); Absolute Basophil Count 0.03 k/cumm (0.0-0.2); Absolute Eosinophil Count 0.15 k/cumm (0.0-0.7); Absolute Lymphocyte Count 1.84 k/cumm (1.2-3.4); Absolute Monocyte Count 0.46 k/cumm (0.11-0.7); Absolute Neutrophil Count 4.08 k/cumm (1.2-6.7); Basophils % 0.5; Eosinophils % 2.3; HCT 39.8 % (36.0-46.0); HGB 13.6 g/dL (12.0-15.5); Immature Grans % 0.2 %; Mean Corp. HGB Concentration 34.2 g/dL (32.0-36.0); Mean Corpuscular Hemoglobin 32.8 pg (27.0-33.0); Mean Corpuscular Volume 95.9 fL (80-95); Mean Platelet Volume 9.1 fL (8.0-11.0); Platelet Count 344 x1000/uL (130-400); RBC 4.15 m/cumm (4.00-5.20); RBC Distribution Width 13.2 % (11.7-14.6); White Blood Cell Count 6.57 k/cumm (4.4-10.8)
== END 2019-04-16 09:27 ==
PROVIDERS: PCP Family Medicine; Visit Provider Nurse Practitioner Psychiatric/Mental Health
DX: F20.9 Schizophrenia, unspecified (principal); Z79.899 Other long term (current) drug therapy
CPT/HCPCS: 36415; 85025

== ENCOUNTER 2019-04-25 13:15 | Outpatient (CLI) | payer MEDICARE, MEDICAID, SELFPAY ==
[2019-04-25 14:55] LABS: Abs Immature Grans 0.01 k/cumm (0.0-0.09); Absolute Basophil Count 0.05 k/cumm (0.0-0.2); Absolute Eosinophil Count 0.29 k/cumm (0.0-0.7); Absolute Lymphocyte Count 1.84 k/cumm (1.2-3.4); Absolute Monocyte Count 0.57 k/cumm (0.11-0.7); Absolute Neutrophil Count 5.22 k/cumm (1.2-6.7); Basophils % 0.6; Eosinophils % 3.6; HCT 38.4 % (36.0-46.0); HGB 13.2 g/dL (12.0-15.5); Immature Grans % 0.1 %; Lymphocytes % 23.1; Mean Corp. HGB Concentration 34.4 g/dL (32.0-36.0); Mean Corpuscular Hemoglobin 33.3 pg (27.0-33.0); Mean Platelet Volume 9.2 fL (8.0-11.0); Monocytes % 7.1; Neutrophils % 65.5; Platelet Count 395 x1000/uL (130-400); RBC 3.96 m/cumm (4.00-5.20); RBC Distribution Width 13.6 % (11.7-14.6); White Blood Cell Count 7.98 k/cumm (4.4-10.8)
== END 2019-04-25 13:35 ==
PROVIDERS: PCP Family Medicine; Visit Provider Nurse Practitioner Psychiatric/Mental Health
DX: F20.9 Schizophrenia, unspecified (principal); Z79.899 Other long term (current) drug therapy
CPT/HCPCS: 36415; 85025

== ENCOUNTER 2019-05-01 09:43 | Outpatient (CLI) | payer MEDICARE, MEDICAID, SELFPAY ==
[2019-05-01 14:58] LABS: Abs Immature Grans 0.02 k/cumm (0.0-0.09); Absolute Basophil Count 0.03 k/cumm (0.0-0.2); Absolute Eosinophil Count 0.22 k/cumm (0.0-0.7); Absolute Lymphocyte Count 1.86 k/cumm (1.2-3.4); Absolute Monocyte Count 0.59 k/cumm (0.11-0.7); Absolute Neutrophil Count 4.37 k/cumm (1.2-6.7); Basophils % 0.4; Eosinophils % 3.1; HCT 38.8 % (36.0-46.0); HGB 13.4 g/dL (12.0-15.5); Immature Grans % 0.3 %; Lymphocytes % 26.2; Mean Corp. HGB Concentration 34.5 g/dL (32.0-36.0); Mean Corpuscular Hemoglobin 33.7 pg (27.0-33.0); Mean Corpuscular Volume 97.5 fL (80-95); Mean Platelet Volume 9.1 fL (8.0-11.0); Monocytes % 8.3; Neutrophils % 61.7; Platelet Count 406 x1000/uL (130-400); RBC 3.98 m/cumm (4.00-5.20); RBC Distribution Width 13.9 % (11.7-14.6); White Blood Cell Count 7.09 k/cumm (4.4-10.8)
== END 2019-05-01 10:03 ==
PROVIDERS: PCP Family Medicine; Visit Provider Nurse Practitioner Psychiatric/Mental Health
DX: F20.9 Schizophrenia, unspecified (principal); Z79.899 Other long term (current) drug therapy
CPT/HCPCS: 36415; 85025

== ENCOUNTER 2019-05-06 12:59 | Outpatient (CLI) | payer MEDICARE, MEDICAID, SELFPAY ==
[2019-05-06 13:35] LABS: Abs Immature Grans 0.04 k/cumm (0.0-0.09); Absolute Basophil Count 0.03 k/cumm (0.0-0.2); Absolute Eosinophil Count 0.17 k/cumm (0.0-0.7); Absolute Monocyte Count 0.71 k/cumm (0.11-0.7); Absolute Neutrophil Count 6.52 k/cumm (1.2-6.7); Basophils % 0.3; Eosinophils % 1.8; HCT 39.7 % (36.0-46.0); HGB 13.2 g/dL (12.0-15.5); Immature Grans % 0.4 %; Lymphocytes % 21.1; Mean Corp. HGB Concentration 33.2 g/dL (32.0-36.0); Mean Corpuscular Hemoglobin 32.8 pg (27.0-33.0); Mean Corpuscular Volume 98.8 fL (80-95); Mean Platelet Volume 8.8 fL (8.0-11.0); Monocytes % 7.5; Neutrophils % 68.9; Platelet Count 378 x1000/uL (130-400); RBC 4.02 m/cumm (4.00-5.20); RBC Distribution Width 13.7 % (11.7-14.6); White Blood Cell Count 9.47 k/cumm (4.4-10.8)
== END 2019-05-06 13:19 ==
PROVIDERS: PCP Family Medicine; Visit Provider Nurse Practitioner Psychiatric/Mental Health
DX: F20.9 Schizophrenia, unspecified (principal); Z79.899 Other long term (current) drug therapy
CPT/HCPCS: 36415; 85025

== ENCOUNTER 2019-05-13 17:01 | Outpatient (CLI) | payer MEDICARE, MEDICAID, SELFPAY ==
[2019-05-13 14:31] LABS: Abs Immature Grans 0.02 k/cumm (0.0-0.09); Absolute Basophil Count 0.03 k/cumm (0.0-0.2); Absolute Lymphocyte Count 2.02 k/cumm (1.2-3.4); Absolute Monocyte Count 0.63 k/cumm (0.11-0.7); Absolute Neutrophil Count 5.19 k/cumm (1.2-6.7); Basophils % 0.4; Eosinophils % 2.5; HCT 39.6 % (36.0-46.0); HGB 13.1 g/dL (12.0-15.5); Immature Grans % 0.2 %; Mean Corp. HGB Concentration 33.1 g/dL (32.0-36.0); Mean Corpuscular Hemoglobin 32.5 pg (27.0-33.0); Mean Corpuscular Volume 98.3 fL (80-95); Mean Platelet Volume 9.1 fL (8.0-11.0); Monocytes % 7.8; Neutrophils % 64.1; Platelet Count 409 x1000/uL (130-400); RBC 4.03 m/cumm (4.00-5.20); RBC Distribution Width 13.6 % (11.7-14.6); White Blood Cell Count 8.09 k/cumm (4.4-10.8)
== END 2019-05-13 17:21 ==
PROVIDERS: PCP Family Medicine; Visit Provider Nurse Practitioner Psychiatric/Mental Health
DX: F20.9 Schizophrenia, unspecified (principal); Z79.899 Other long term (current) drug therapy
CPT/HCPCS: 36415; 85025

== ENCOUNTER 2019-05-20 17:03 | Outpatient (CLI) | payer MEDICARE, MEDICAID, SELFPAY ==
[2019-05-20 13:54] LABS: Abs Immature Grans 0.01 k/cumm (0.0-0.09); Absolute Basophil Count 0.03 k/cumm (0.0-0.2); Absolute Eosinophil Count 0.24 k/cumm (0.0-0.7); Absolute Lymphocyte Count 1.94 k/cumm (1.2-3.4); Absolute Monocyte Count 0.59 k/cumm (0.11-0.7); Absolute Neutrophil Count 5.55 k/cumm (1.2-6.7); Basophils % 0.4; Eosinophils % 2.9; HCT 40.9 % (36.0-46.0); HGB 13.8 g/dL (12.0-15.5); Immature Grans % 0.1 %; Lymphocytes % 23.2; Mean Corp. HGB Concentration 33.7 g/dL (32.0-36.0); Mean Corpuscular Hemoglobin 33.3 pg (27.0-33.0); Mean Corpuscular Volume 98.8 fL (80-95); Mean Platelet Volume 8.9 fL (8.0-11.0); Monocytes % 7.1; Neutrophils % 66.3; Platelet Count 380 x1000/uL (130-400); RBC 4.14 m/cumm (4.00-5.20); RBC Distribution Width 13.4 % (11.7-14.6); White Blood Cell Count 8.36 k/cumm (4.4-10.8)
== END 2019-05-20 17:23 ==
PROVIDERS: PCP Family Medicine; Visit Provider Nurse Practitioner Psychiatric/Mental Health
DX: F20.9 Schizophrenia, unspecified (principal); Z79.899 Other long term (current) drug therapy
CPT/HCPCS: 36415; 85025

== ENCOUNTER 2019-05-27 10:06 | Outpatient (CLI) | payer MEDICARE, MEDICAID, SELFPAY ==
[2019-05-27 10:49] LABS: Abs Immature Grans 0.02 k/cumm (0.0-0.09); Absolute Basophil Count 0.02 k/cumm (0.0-0.2); Absolute Eosinophil Count 0.22 k/cumm (0.0-0.7); Absolute Lymphocyte Count 1.59 k/cumm (1.2-3.4); Absolute Monocyte Count 0.33 k/cumm (0.11-0.7); Absolute Neutrophil Count 5.47 k/cumm (1.2-6.7); Basophils % 0.3; Eosinophils % 2.9; HCT 40.7 % (36.0-46.0); HGB 13.7 g/dL (12.0-15.5); Immature Grans % 0.3 %; Lymphocytes % 20.8; Mean Corp. HGB Concentration 33.7 g/dL (32.0-36.0); Mean Corpuscular Hemoglobin 33.3 pg (27.0-33.0); Monocytes % 4.3; Neutrophils % 71.4; Platelet Count 347 x1000/uL (130-400); RBC 4.11 m/cumm (4.00-5.20); RBC Distribution Width 13.2 % (11.7-14.6); White Blood Cell Count 7.65 k/cumm (4.4-10.8)
== END 2019-05-27 10:26 ==
PROVIDERS: PCP Family Medicine; Visit Provider Nurse Practitioner Psychiatric/Mental Health
DX: F20.9 Schizophrenia, unspecified (principal); Z79.899 Other long term (current) drug therapy
CPT/HCPCS: 36415; 85025

== ENCOUNTER 2019-06-04 04:29 | Outpatient (CLI) | payer MEDICARE, MEDICAID, SELFPAY ==
[2019-06-04 14:47] LABS: Abs Immature Grans 0.02 k/cumm (0.0-0.09); Absolute Basophil Count 0.03 k/cumm (0.0-0.2); Absolute Eosinophil Count 0.34 k/cumm (0.0-0.7); Absolute Lymphocyte Count 2.01 k/cumm (1.2-3.4); Absolute Monocyte Count 0.59 k/cumm (0.11-0.7); Basophils % 0.3; Eosinophils % 3.8; HCT 40.4 % (36.0-46.0); HGB 13.8 g/dL (12.0-15.5); Immature Grans % 0.2 %; Lymphocytes % 22.6; Mean Corp. HGB Concentration 34.2 g/dL (32.0-36.0); Mean Corpuscular Hemoglobin 33.3 pg (27.0-33.0); Mean Corpuscular Volume 97.3 fL (80-95); Mean Platelet Volume 8.8 fL (8.0-11.0); Monocytes % 6.6; Neutrophils % 66.5; Platelet Count 363 x1000/uL (130-400); RBC 4.15 m/cumm (4.00-5.20); RBC Distribution Width 12.5 % (11.7-14.6); White Blood Cell Count 8.89 k/cumm (4.4-10.8)
== END 2019-06-04 04:49 ==
PROVIDERS: PCP Family Medicine; Visit Provider Nurse Practitioner Psychiatric/Mental Health
DX: F20.9 Schizophrenia, unspecified (principal); Z79.899 Other long term (current) drug therapy
CPT/HCPCS: 36415; 85025

== ENCOUNTER 2019-06-11 01:38 | Outpatient (CLI) | payer MEDICARE, MEDICAID, SELFPAY ==
[2019-06-11 12:42] LABS: Abs Immature Grans 0.02 k/cumm (0.0-0.09); Absolute Basophil Count 0.03 k/cumm (0.0-0.2); Absolute Eosinophil Count 0.26 k/cumm (0.0-0.7); Absolute Lymphocyte Count 2.22 k/cumm (1.2-3.4); Absolute Neutrophil Count 7.56 k/cumm (1.2-6.7); Basophils % 0.3; Eosinophils % 2.5; HCT 40.9 % (36.0-46.0); Immature Grans % 0.2 %; Mean Corp. HGB Concentration 34.2 g/dL (32.0-36.0); Mean Corpuscular Hemoglobin 33.2 pg (27.0-33.0); Mean Corpuscular Volume 96.9 fL (80-95); Mean Platelet Volume 8.8 fL (8.0-11.0); Monocytes % 4.7; Neutrophils % 71.3; Platelet Count 351 x1000/uL (130-400); RBC 4.22 m/cumm (4.00-5.20); RBC Distribution Width 12.3 % (11.7-14.6); White Blood Cell Count 10.59 k/cumm (4.4-10.8)
== END 2019-06-11 01:58 ==
PROVIDERS: PCP Family Medicine; Visit Provider Nurse Practitioner Psychiatric/Mental Health
DX: F20.9 Schizophrenia, unspecified (principal); Z79.899 Other long term (current) drug therapy
CPT/HCPCS: 36415; 85025

== ENCOUNTER 2019-06-18 01:48 | Outpatient (CLI) | payer MEDICARE, MEDICAID, SELFPAY ==
[2019-06-18 14:01] LABS: Abs Immature Grans 0.01 k/cumm (0.0-0.09); Absolute Basophil Count 0.03 k/cumm (0.0-0.2); Absolute Eosinophil Count 0.39 k/cumm (0.0-0.7); Absolute Lymphocyte Count 1.86 k/cumm (1.2-3.4); Absolute Monocyte Count 0.55 k/cumm (0.11-0.7); Basophils % 0.4; Eosinophils % 4.7; HCT 43.4 % (36.0-46.0); HGB 14.8 g/dL (12.0-15.5); Immature Grans % 0.1 %; Lymphocytes % 22.3; Mean Corp. HGB Concentration 34.1 g/dL (32.0-36.0); Mean Corpuscular Volume 96.9 fL (80-95); Mean Platelet Volume 9.2 fL (8.0-11.0); Monocytes % 6.6; Neutrophils % 65.9; Platelet Count 365 x1000/uL (130-400); RBC 4.48 m/cumm (4.00-5.20); RBC Distribution Width 12.4 % (11.7-14.6); White Blood Cell Count 8.34 k/cumm (4.4-10.8)
== END 2019-06-18 02:08 ==
PROVIDERS: PCP Family Medicine; Visit Provider Nurse Practitioner Psychiatric/Mental Health
DX: F20.9 Schizophrenia, unspecified (principal); Z79.899 Other long term (current) drug therapy
CPT/HCPCS: 36415; 85025

== ENCOUNTER 2019-07-02 01:00 | Outpatient (CLI) | payer MEDICARE, MEDICAID, SELFPAY ==
[2019-07-02 12:38] LABS: Abs Immature Grans 0.02 k/cumm (0.0-0.09); Absolute Basophil Count 0.02 k/cumm (0.0-0.2); Absolute Eosinophil Count 0.37 k/cumm (0.0-0.7); Absolute Lymphocyte Count 2.36 k/cumm (1.2-3.4); Absolute Monocyte Count 0.49 k/cumm (0.11-0.7); Absolute Neutrophil Count 5.53 k/cumm (1.2-6.7); Basophils % 0.2; Eosinophils % 4.2; HCT 41.3 % (36.0-46.0); HGB 14.5 g/dL (12.0-15.5); Immature Grans % 0.2 %; Lymphocytes % 26.8; Mean Corp. HGB Concentration 35.1 g/dL (32.0-36.0); Mean Corpuscular Hemoglobin 33.2 pg (27.0-33.0); Mean Corpuscular Volume 94.5 fL (80-95); Monocytes % 5.6; Platelet Count 355 x1000/uL (130-400); RBC 4.37 m/cumm (4.00-5.20); RBC Distribution Width 11.8 % (11.7-14.6); White Blood Cell Count 8.79 k/cumm (4.4-10.8)
== END 2019-07-02 01:20 ==
PROVIDERS: PCP Family Medicine; Visit Provider Nurse Practitioner Psychiatric/Mental Health
DX: F20.9 Schizophrenia, unspecified (principal); Z79.899 Other long term (current) drug therapy
CPT/HCPCS: 36415; 85025

== ENCOUNTER 2019-08-01 03:39 | Outpatient (CLI) | payer MEDICARE, MEDICAID, SELFPAY ==
[2019-08-01 15:31] LABS: Abs Immature Grans 0.02 k/cumm (0.0-0.09); Absolute Basophil Count 0.04 k/cumm (0.0-0.2); Absolute Lymphocyte Count 2.11 k/cumm (1.2-3.4); Absolute Monocyte Count 0.53 k/cumm (0.11-0.7); Absolute Neutrophil Count 7.57 k/cumm (1.2-6.7); Basophils % 0.4; Eosinophils % 2.8; HCT 43.1 % (36.0-46.0); HGB 14.8 g/dL (12.0-15.5); Immature Grans % 0.2 %; Mean Corp. HGB Concentration 34.3 g/dL (32.0-36.0); Mean Corpuscular Hemoglobin 32.2 pg (27.0-33.0); Mean Corpuscular Volume 93.9 fL (80-95); Mean Platelet Volume 9.2 fL (8.0-11.0); Neutrophils % 71.6; Platelet Count 360 x1000/uL (130-400); RBC 4.59 m/cumm (4.00-5.20); RBC Distribution Width 11.9 % (11.7-14.6); White Blood Cell Count 10.57 k/cumm (4.4-10.8)
== END 2019-08-01 03:59 ==
PROVIDERS: PCP Family Medicine; Visit Provider Nurse Practitioner Psychiatric/Mental Health
DX: F20.9 Schizophrenia, unspecified (principal); Z79.899 Other long term (current) drug therapy
CPT/HCPCS: 36415; 85025

== ENCOUNTER 2019-08-27 00:58 | Outpatient (CLI) | payer MEDICARE, MEDICAID, SELFPAY ==
[2019-08-27 12:54] LABS: Abs Immature Grans 0.02 k/cumm (0.0-0.09); Absolute Basophil Count 0.04 k/cumm (0.0-0.2); Absolute Eosinophil Count 0.36 k/cumm (0.0-0.7); Absolute Lymphocyte Count 2.24 k/cumm (1.2-3.4); Absolute Monocyte Count 0.63 k/cumm (0.11-0.7); Basophils % 0.4; HCT 41.2 % (36.0-46.0); HGB 14.2 g/dL (12.0-15.5); Immature Grans % 0.2 %; Lymphocytes % 24.6; Mean Corp. HGB Concentration 34.5 g/dL (32.0-36.0); Mean Corpuscular Hemoglobin 32.5 pg (27.0-33.0); Mean Corpuscular Volume 94.3 fL (80-95); Monocytes % 6.9; Neutrophils % 63.9; Platelet Count 351 x1000/uL (130-400); RBC 4.37 m/cumm (4.00-5.20); RBC Distribution Width 12.6 % (11.7-14.6); White Blood Cell Count 9.09 k/cumm (4.4-10.8)
== END 2019-08-27 01:18 ==
PROVIDERS: Nurse Practitioner Family; PCP Family Medicine; Visit Provider Nurse Practitioner Psychiatric/Mental Health
DX: F20.9 Schizophrenia, unspecified (principal); Z79.899 Other long term (current) drug therapy
CPT/HCPCS: 85025

== ENCOUNTER 2019-09-02 02:56 | Outpatient (CLI) | payer MEDICARE, MEDICAID, SELFPAY ==
[2019-09-02 15:05] LABS: Abs Immature Grans 0.02 k/cumm (0.0-0.09); Absolute Basophil Count 0.03 k/cumm (0.0-0.2); Absolute Lymphocyte Count 2.03 k/cumm (1.2-3.4); Absolute Monocyte Count 0.63 k/cumm (0.11-0.7); Absolute Neutrophil Count 6.44 k/cumm (1.2-6.7); Basophils % 0.3; Eosinophils % 3.2; HCT 41.6 % (36.0-46.0); HGB 14.3 g/dL (12.0-15.5); Immature Grans % 0.2 %; Lymphocytes % 21.5; Mean Corp. HGB Concentration 34.4 g/dL (32.0-36.0); Mean Corpuscular Hemoglobin 32.5 pg (27.0-33.0); Mean Corpuscular Volume 94.5 fL (80-95); Mean Platelet Volume 9.2 fL (8.0-11.0); Monocytes % 6.7; Neutrophils % 68.1; Platelet Count 356 x1000/uL (130-400); RBC Distribution Width 12.8 % (11.7-14.6); White Blood Cell Count 9.45 k/cumm (4.4-10.8)
== END 2019-09-02 03:16 ==
PROVIDERS: PCP Family Medicine; Visit Provider Nurse Practitioner Family
DX: F20.9 Schizophrenia, unspecified (principal); Z79.899 Other long term (current) drug therapy
CPT/HCPCS: 36415; 85025

== ENCOUNTER 2019-09-10 03:28 | Outpatient (CLI) | payer MEDICARE, MEDICAID, SELFPAY ==
[2019-09-10 14:27] LABS: Abs Immature Grans 0.02 k/cumm (0.0-0.09); Absolute Basophil Count 0.02 k/cumm (0.0-0.2); Absolute Lymphocyte Count 1.71 k/cumm (1.2-3.4); Absolute Monocyte Count 0.47 k/cumm (0.11-0.7); Absolute Neutrophil Count 5.58 k/cumm (1.2-6.7); Basophils % 0.3; Eosinophils % 2.5; HCT 42.3 % (36.0-46.0); HGB 14.5 g/dL (12.0-15.5); Immature Grans % 0.3 %; Lymphocytes % 21.4; Mean Corp. HGB Concentration 34.3 g/dL (32.0-36.0); Mean Corpuscular Hemoglobin 31.9 pg (27.0-33.0); Mean Corpuscular Volume 93.2 fL (80-95); Mean Platelet Volume 9.2 fL (8.0-11.0); Monocytes % 5.9; Neutrophils % 69.6; Platelet Count 363 x1000/uL (130-400); RBC 4.54 m/cumm (4.00-5.20); RBC Distribution Width 12.8 % (11.7-14.6)
== END 2019-09-10 03:48 ==
PROVIDERS: PCP Family Medicine; Visit Provider Nurse Practitioner Family
DX: F20.9 Schizophrenia, unspecified (principal); Z79.899 Other long term (current) drug therapy
CPT/HCPCS: 36415; 85025

== ENCOUNTER 2019-09-16 01:33 | Outpatient (CLI) | payer MEDICARE, MEDICAID, SELFPAY ==
[2019-09-16 15:28] LABS: Abs Immature Grans 0.01 k/cumm (0.0-0.09); Absolute Basophil Count 0.03 k/cumm (0.0-0.2); Absolute Eosinophil Count 0.27 k/cumm (0.0-0.7); Absolute Lymphocyte Count 2.12 k/cumm (1.2-3.4); Absolute Monocyte Count 0.54 k/cumm (0.11-0.7); Absolute Neutrophil Count 5.75 k/cumm (1.2-6.7); Basophils % 0.3; Eosinophils % 3.1; HCT 41.5 % (36.0-46.0); HGB 14.7 g/dL (12.0-15.5); Immature Grans % 0.1 %; Lymphocytes % 24.3; Mean Corp. HGB Concentration 35.4 g/dL (32.0-36.0); Mean Corpuscular Hemoglobin 32.7 pg (27.0-33.0); Mean Corpuscular Volume 92.4 fL (80-95); Mean Platelet Volume 9.2 fL (8.0-11.0); Monocytes % 6.2; Platelet Count 381 x1000/uL (130-400); RBC 4.49 m/cumm (4.00-5.20); RBC Distribution Width 12.4 % (11.7-14.6); White Blood Cell Count 8.72 k/cumm (4.4-10.8)
== END 2019-09-16 01:53 ==
PROVIDERS: Nurse Practitioner Family; PCP Family Medicine; Visit Provider Nurse Practitioner Psychiatric/Mental Health
DX: F20.9 Schizophrenia, unspecified (principal); Z79.899 Other long term (current) drug therapy
CPT/HCPCS: 36415; 85025

== ENCOUNTER 2019-10-01 03:32 | Outpatient (CLI) | payer MEDICARE, MEDICAID, SELFPAY ==
[2019-10-01 11:55] LABS: Abs Immature Grans 0.03 10^3/uL (0.0-0.06); Absolute Basophil Count 0.04 10^3/uL (0.0-0.2); Absolute Eosinophil Count 0.47 10^3/uL (0.0-0.7); Absolute Lymphocyte Count 1.92 10^3/uL (1.2-3.4); Absolute Monocyte Count 0.47 10^3/uL (0.1-0.8); Absolute Neutrophil Count 4.64 10^3/uL (1.2-6.7); Basophils % 0.5; Eosinophils % 6.2; HGB 14.1 g/dL (11.2-15.7); Immature Grans % 0.4; Lymphocytes % 25.4; MCH 32.3 pg (27.0-33.0); MCHC 34.4 % (32.0-36.0); MPV 9.4 fL (8.0-11.0); Monocytes % 6.2; Neutrophils % 61.3 %; Platelet Count 323 10^3/uL (130-400); RBC 4.36 10^6/uL (3.93-5.22); RDW 12.2 % (11.7-14.6); WBC 7.57 10^3/uL (4.4-10.8)
== END 2019-10-01 03:52 ==
PROVIDERS: PCP Family Medicine; Visit Provider Nurse Practitioner Family
DX: F20.9 Schizophrenia, unspecified (principal); Z79.899 Other long term (current) drug therapy
CPT/HCPCS: 36415; 85025

== ENCOUNTER 2019-10-31 04:28 | Outpatient (CLI) | payer MEDICARE, MEDICAID, SELFPAY ==
[2019-10-31 09:28] LABS: Abs Immature Grans 0.03 10^3/uL (0.0-0.06); Absolute Basophil Count 0.06 10^3/uL (0.0-0.2); Absolute Lymphocyte Count 1.73 10^3/uL (1.2-3.4); Absolute Monocyte Count 0.86 10^3/uL (0.1-0.8); Basophils % 0.5; Eosinophils % 2.8; HCT 41.6 % (36.0-46.0); HGB 14.5 g/dL (11.2-15.7); Immature Grans % 0.3; Lymphocytes % 14.9; MCH 32.6 pg (27.0-33.0); MCHC 34.9 % (32.0-36.0); MCV 93.5 fL (80-95); MPV 8.8 fL (8.0-11.0); Monocytes % 7.4; Neutrophils % 74.1; Nucleated RBC 0 %; Platelet Count 346 10^3/uL (130-400); RBC 4.45 10^6/uL (3.93-5.22); RDW 11.9 % (11.7-14.6); RDW-SD 41.3 fL
[2019-10-31 09:36] LABS: Absolute Eosinophil Count 0.32 10^3/uL (0.0-0.7)
== END 2019-10-31 04:48 ==
PROVIDERS: Nurse Practitioner Family; PCP Family Medicine; Visit Provider Nurse Practitioner Psychiatric/Mental Health
DX: F20.9 Schizophrenia, unspecified (principal); Z79.899 Other long term (current) drug therapy
CPT/HCPCS: 36415; 85025

== ENCOUNTER 2019-12-12 01:38 | Outpatient (CLI) | payer MEDICARE, MEDICAID, SELFPAY ==
[2019-12-12 12:18] LABS: Abs Immature Grans 0.02 10^3/uL (0.0-0.06); Absolute Basophil Count 0.05 10^3/uL (0.0-0.2); Absolute Eosinophil Count 0.36 10^3/uL (0.0-0.7); Absolute Lymphocyte Count 1.93 10^3/uL (1.2-3.4); Absolute Monocyte Count 0.64 10^3/uL (0.1-0.8); Absolute Neutrophil Count 5.61 10^3/uL (1.2-6.7); Basophils % 0.6; Eosinophils % 4.2; HCT 40.5 % (36.0-46.0); HGB 13.9 g/dL (11.2-15.7); Immature Grans % 0.2; Lymphocytes % 22.4; MCH 32.3 pg (27.0-33.0); MCHC 34.3 % (32.0-36.0); MPV 9.7 fL (8.0-11.0); Monocytes % 7.4; Neutrophils % 65.2; Nucleated RBC 0 %; Platelet Count 394 10^3/uL (130-400); RBC 4.31 10^6/uL (3.93-5.22); RDW 12.4 % (11.7-14.6); RDW-SD 42.9 fL; WBC 8.61 10^3/uL (4.4-10.8)
== END 2019-12-12 01:58 ==
PROVIDERS: Nurse Practitioner Family; PCP Family Medicine; Visit Provider Nurse Practitioner Psychiatric/Mental Health
DX: F20.9 Schizophrenia, unspecified (principal); Z79.899 Other long term (current) drug therapy
CPT/HCPCS: 36415; 85025

== ENCOUNTER 2020-01-14 01:41 | Outpatient (CLI) | payer MEDICARE, MEDICAID, SELFPAY ==
[2020-01-14 12:20] LABS: Abs Immature Grans 0.04 10^3/uL (0.0-0.06); Absolute Basophil Count 0.06 10^3/uL (0.0-0.2); Absolute Lymphocyte Count 2.09 10^3/uL (1.2-3.4); Absolute Monocyte Count 0.58 10^3/uL (0.1-0.8); Absolute Neutrophil Count 6.36 10^3/uL (1.2-6.7); Basophils % 0.6; Eosinophils % 2.1; HCT 40.1 % (36.0-46.0); HGB 14.3 g/dL (11.2-15.7); Immature Grans % 0.4; Lymphocytes % 22.4; MCH 32.3 pg (27.0-33.0); MCHC 35.7 % (32.0-36.0); MCV 90.5 fL (80-95); Monocytes % 6.2; Neutrophils % 68.3; Nucleated RBC 0 %; Platelet Count 350 10^3/uL (130-400); RBC 4.43 10^6/uL (3.93-5.22); RDW 12.6 % (11.7-14.6); RDW-SD 41.7 fL; WBC 9.33 10^3/uL (4.4-10.8)
== END 2020-01-14 02:01 ==
PROVIDERS: Nurse Practitioner Family; PCP Family Medicine; Visit Provider Family Medicine
DX: F20.9 Schizophrenia, unspecified (principal); Z79.899 Other long term (current) drug therapy
CPT/HCPCS: 36415; 85025

== ENCOUNTER 2020-02-10 02:42 | Outpatient (CLI) | payer MEDICARE, MEDICAID, SELFPAY ==
[2020-02-10 12:55] LABS: Abs Immature Grans 0.04 10^3/uL (0.0-0.06); Absolute Basophil Count 0.04 10^3/uL (0.0-0.2); Absolute Eosinophil Count 0.43 10^3/uL (0.0-0.7); Absolute Monocyte Count 0.47 10^3/uL (0.1-0.8); Absolute Neutrophil Count 5.53 10^3/uL (1.2-6.7); Basophils % 0.5; Eosinophils % 5.1; HCT 41.9 % (36.0-46.0); HGB 14.3 g/dL (11.2-15.7); Immature Grans % 0.5; Lymphocytes % 23.5; MCH 32.4 pg (27.0-33.0); MCHC 34.1 % (32.0-36.0); MPV 9.4 fL (8.0-11.0); Monocytes % 5.5; Neutrophils % 64.9; Nucleated RBC 0 %; Platelet Count 336 10^3/uL (130-400); RBC 4.41 10^6/uL (3.93-5.22); RDW 12.3 % (11.7-14.6); RDW-SD 43.2 fL; WBC 8.51 10^3/uL (4.4-10.8)
== END 2020-02-10 03:02 ==
PROVIDERS: PCP Family Medicine; Visit Provider Nurse Practitioner Psychiatric/Mental Health
DX: F20.9 Schizophrenia, unspecified (principal); Z79.899 Other long term (current) drug therapy
CPT/HCPCS: 36415; 85025

== ENCOUNTER 2020-02-18 12:03 | Emergency (ER) | payer MEDICARE, MEDICAID, SELFPAY ==
[2020-02-18] VITALS (34 sets, daily range): BP systolic 104–138; BP diastolic 47–85; PULSE 107–141; RESP 16–33; TEMP 36.5; O2SAT 96–99
--- NOTE | 2020-02-18 12:00 | RT.EKG_ITS ---
APPROVED REPORT Exam: Resting ECG Patient Location: E HR:134 bpm ECG Measurements Heart Rate 134 AXIS DC 178 P 97 QRSd 78 QRS 75 QT 246 T 8 QTc 368 Conclusion Sinus tachycardia. Probable left atrial enlargement.
[2020-02-18] MEDS: Haloperidol 5 MG/ML VIAL (12:07)
[2020-02-18] MEDS: Midazolam 2 MG/2 ML VIAL (12:07)
--- NOTE | 2020-02-18 12:13 | ED.GENADUL_ITS ---
Discharge Plan Disposition Patient Disposition: HOME Condition: Improving Discharge Details Clinical Impression: Mood and affect disturbance Primary Care Provider: Moo Robles ED Provider: Silvino Morales Home Meds and New Rx's Prescriptions: Continued docusate sodium [Colace] 100 MG capsule 100 mg PO DAILY RF: 0 paroxetine HCl 40 mg Tablet 40 mg PO DAILY RF: 0 multivitamin Tablet 1 tab PO QAM RF: 0 melatonin 3 mg Tablet 1.5 mg PO HS RF: 0 lamotrigine 25 mg Tablet 25 mg PO HS RF: 0 lamotrigine 100 mg Tablet 200 mg PO HS RF: 0 naproxen 500 mg Tablet 500 mg PO BID PRN PRN (Reason: Pain) RF: 0 omega 8-map-sne-fish oil [Fish Oil] 1,000 mg (120 mg-180 mg) Capsule 1 cap PO TID RF: 0 magnesium oxide 400 mg magnesium Tablet 400 mg PO BID RF: 0 metformin 500 mg tablet 500 mg PO DAILY RF: 0 clonidine HCl 0.1 mg Tablet 0.1 mg PO BID PRNRF: 0 benztropine 0.5 mg tablet 0.5 mg PO QHS RF: 0 polyethylene glycol 3350 [Miralax] 17 gram Powder In Packet 17 g PO DAILY PRNRF: 0 clozapine 100 mg tablet 200 mg PO QHS RF: 0 lamotrigine 25 mg tablet RF: 0 omeprazole 20 mg capsule,delayed release(DR/EC) 20 mg PO DAILY RF: 0 vitamin B complex Capsule 1 cap PO DAILY RF: 0 cholecalciferol (vitamin D3) 25 mcg (1,000 unit) Tablet 25 mcg PO DAILY RF: 0 trazodone 100 mg tablet 100 mg PO QHS RF: 0 clozapine 25 mg tablet 50 mg PO QHS RF: 0 acetylcysteine [NAC] 600 mg capsule 1,200 mg PO DAILY RF: 0 levomefolate calcium [L-Methylfolate] 15 mg tablet 15 mg PO DAILY RF: 0 No Action hydroxyzine HCl 25 mg tablet 25 mg PO TID PRN PRNRF: 0 Medical Decision Making 39-year-old female with a history of paranoia, depression, previous suicide attempt. Brought by EMS after report of intentional Vistaril overdose of unknown quantity. No pill bottles found, she was recently prescribed Vistaril on January 28. Patient was combative, agitated in the ambulance requiring physical restraint. 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 Medical screening examination performed, patient with probable acute psychosis and question of overdose attempt. Due to threat of harm to herself and others: Patient was given intramuscular injection of Haldol, Versed, Benadryl and requi red placement of physical restraints. One-to-one observation was ordered and medical screening was completed with laboratory analysis, EKG. Review of records reveals a number of previous admissions to the [facility] for psychiatric stabilization. Unclear whether she has been compliant with her outpatient medications, which she receives 1 wk at a time from [facility]. After approximately 35 minutes, patient was able to be released from physical restraints and more appropriate with staff. Patient is in the custodial and has not controlled her own medications. Nonetheless, there is some risk of anticholinergic overdose, which per poison center should resolve after 6 hours time. Will hold any further QT prolonging meds such as Haldol and Benadryl in order not to cloud her clinical picture. After nearly 3 hours of observation, patient more oriented, appropriate, interviewed with [facility] human services and deemed not a danger to herself or others. Her resting heart rate settles out at approximately 110. I reviewed the patient's records which show previous cardiology consultation with Dr. Oreilly in 2010. This notes a resting sinus tachycardia and question of wh ether to switch her from propranolol to metoprolol. At that time was unclear if she is taking beta-blockade as is the case currently. We will ask manager critical care unit to arrange an outpatient follow-up for her in primary care clinic and they may reference the previous cardiology note in regards to further beta-blockade. Today's laboratories did show slight anion gap acidosis which I believe is from her initial physical resistance to transport personnel. After fluid resuscitation, patient chemistries were rechecked and without anion gap. She is improved, appropriate, not a danger to herself. HPI General Mode of arrival: EMS . Date/Time Provider Initiated Documentation: 02/18/20 12:06 . Limitations to Documentation: altered mental status . Information obtained by: patient and EMS . History of Present Illness 39 year old F presents to the emergency department with the chief complaint of You're fake and are trying to kill me, psychotic behavior, described as severe, Qu ality is described as constant, Patient started experiencing this unknown other things that improve symptom(s), (Unknown) Other factors that worsen symptoms (Unknown) . Patient did receive the following treatments prior to arrival, none Related Data Home Medications Medication Instructions Recorded Confirmed docusate sodium [Colace] 100 mg PO DAILY 07/23/17 02/18/20 paroxetine HCl 40 mg PO DAILY 08/10/18 02/18/20 lamotrigine 25 mg PO HS 02/27/19 02/18/20 lamotrigine 200 mg PO HS 02/27/19 02/18/20 magnesium oxide 400 mg PO BID 02/27/19 02/18/20 melatonin 1.5 mg PO HS 02/27/19 02/18/20 multivitamin 1 tab PO QAM 02/27/19 02/18/20 naproxen 500 mg PO BID PRN PRN 02/27/19 02/18/20 omega 8-rhk-zku-fish oil [Fish Oil] 1 cap PO TID 02/27/19 02/18/20 acetylcysteine [NAC] 1,200 mg PO DAILY 02/18/20 02/18/20 benztropine 0.5 mg PO QHS 02/18/20 02/18/20 cholecalciferol (vitamin D3) 25 mcg PO DAILY 02/18/20 02/18/20 clonidine HCl 0.1 mg PO BID PRN 02/18/20 02/18/20 clozapine 50 mg PO QHS 02/18/20 02/18/20 clozapine 200 mg PO QHS 02/18/20 02/18/20 hydroxyzine HCl 25 mg PO TID PRN PRN 02/18/20 02/18/20 lamotrigine 02/18/20 02/18/20 levomefolate calcium 15 mg PO DAILY 02/18/20 02/18/20 [L-Methylfolate] metformin 500 mg PO DAILY 02/18/20 02/18/20 omeprazole 20 mg PO DAILY 02/18/20 02/18/20 polyethylene glycol 3350 [Miralax] 17 g PO DAILY PRN 02/18/20 02/18/20 trazodone 100 mg PO QHS 02/18/20 02/18/20 vitamin B complex 1 cap PO DAILY 02/18/20 02/18/20 Allergies Allergy/AdvReac Type Severity Reaction Status Date / Time niacin Allergy Intermediate Skin Rash Unverified 02/18/20 13:04 [From Niaspan Extended-Release] vilazodone [From Viibryd] AdvReac Intermediate Agitation Unverified 02/18/20 13:04 Penicillins AdvReac Mild RESTLESS Unverified 02/18/20 13:04 General [place]OL[place]: 2 Review of Systems Unobtainable due to mental condition [facility] Social History Smoking/Tobacco Use Status: Current every day Tobacco Type: cigarettes Smoking risk assessment performed?: Yes Alcohol Intake: never Drug use: Never Substance use type: does not use Current gender identity: female Do you feel safe at home: Yes Do you feel safe in your relationship?: Yes Additional Social history: 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 Exam Narrative Exam Narrative: GEN: awake, combative with EMS and nursing staff, hyperventilating HEAD: Normocephalic, atraumatic ENT: Mucous membranes moist, oropharynx unremarkable, External ear exam unremarkable EYES: PERRL, EOMI NECK: Full ROM, no BRIAN, no menigismus CHEST/RESP: Nontender, clear to auscultation bilateral, no wheeze/rhonchi/rales CARDIOVASCULAR: Regular and tachycardic, no murmur, rub eliica. 2+ Rad pulse bilateral ABDOMEN: Soft, nontender, no mass. +Bowel sounds EXT: Full ROM, no edema, no rash Neuro: Grossly normal neurologic exam, fluent speech. Psych: Speech fluent, agitated, combative, stating you are fake and trying to kill me
[2020-02-18] MEDS: diphenhydrAMINE 50 MG/ML VIAL (12:21)
[2020-02-18 12:56] LABS: Abs Immature Grans 0.07 10^3/uL (0.0-0.06); Absolute Basophil Count 0.06 10^3/uL (0.0-0.2); Absolute Lymphocyte Count 1.28 10^3/uL (1.2-3.4); Absolute Monocyte Count 0.51 10^3/uL (0.1-0.8); Basophils % 0.6; Eosinophils % 1.9; HCT 40.4 % (36.0-46.0); HGB 14.1 g/dL (11.2-15.7); Immature Grans % 0.7; Lymphocytes % 12.1; MCH 32.1 pg (27.0-33.0); MCHC 34.9 % (32.0-36.0); MPV 9.1 fL (8.0-11.0); Monocytes % 4.8; Neutrophils % 79.9; Nucleated RBC 0 %; Platelet Count 357 10^3/uL (130-400); RBC 4.39 10^6/uL (3.93-5.22); RDW-SD 41.1 fL; WBC 10.62 10^3/uL (4.4-10.8)
[2020-02-18] MEDS: Normal Saline 1,000 ML 1000 ML IV (12:59)
[2020-02-18 13:20] LABS: ALT 27 U/L (14-59); AST 15 U/L (15-37); Albumin 3.7 g/dL (3.4-5.0); Alkaline Phosphatase 102 U/L (46-116); Anion Gap 14.2 mmol/L (3-11); BUN 9 mg/dL (7-18); Bilirubin, Total 0.2 mg/dL (0.2-1.0); CO2 19.8 mmol/L (21.0-32.0); Calcium 9.2 mg/dL (8.5-10.1); Chloride 105 mmol/L (98-107); Glucose 129 mg/dL (74-106); Potassium 3.4 mmol/L (3.5-5.1); Sodium 139 mmol/L (136-145); TSH 3.47 uIU/mL (0.36-3.74); Total Protein 7.2 g/dL (6.4-8.2)
[2020-02-18 13:21] LABS: Salicylate 3.9 mg/dL (2.8-20.0)
[2020-02-18 13:23] LABS: Acetaminophen < 2 ug/mL (10-30)
[2020-02-18 13:35] LABS: ETHANOL BLOOD < 3.0 mg/dL (<3)
--- NOTE | 2020-02-18 14:16 | CMSP_ITS ---
- If Service Date Differs Date of service: 02/18/20 Time of Service: 14:16 Care Management Safety Plan Chief Complaint: Vimal arrived at the ED combative, after taking an intentional overdose of Vistaril. She was brought in by EMS, who had to restrain her in the ambulance for safety. She has a history of paranoia, schizophrenia, depression and previous suicide attempts. 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 CM will respond to ED to assess patient after patient has been medically cleared and assessed by screener. If screener deems patient meets criteria for psychiatric stabilization CM will facilitate interdepartmental huddle with [facility] screener for safety planning considerations and meet with patient to review [facility] policy and safety plan, establish individual wishes for treatment and maintain patient rights. In the interim; please note safety plan below to guide patient care while awaiting further assessment in the ED. SAFETY PLAN: 1. Will remain on suicide precautions and in paper clothes. 2. Will remain in room under direct supervision of one-on-one staff at all times provided by MARIO, [employer] professor of mechanical engineering. 3. May have paper cups, plates, finger foods as well as a cardboard spoon with which to eat meals. 4. Follow [facility] Management of the Admitted Behavioral Health Patient policy. 5. Comfort bath system only. 6. No personal belongings 7. No visitors. 8. Phone contact limited, at staff discretion. 9. Due to VOLUNTARY status, if patient wishes to leave [facility], the [facility] firestop/containment worker must be contacted to re-evaluate patient prior to patient exiting the building. If deemed appropriate for inpatient psychiatric care, safety plan will be established with patient, and care team, to adhere to patient goals, identify restrictions based on behavioral status, address nutrition, and determine allowed personal belongings, tools for hygiene and personal care. As well plan will determine level of activity including ambulation, level of supervision, visitors, and determine privileges based on level of acuity, behaviors and level of engagement by patient.
--- NOTE | 2020-02-18 14:40 | PDOC.MHCN ---
Date of service: 02/18/20 Time of Service: 15:03 Mental Health Crisis Note Presenting Issue How did you arrive at the ED and why did you come: Harriett called [facility]. Client had been feeling suicidal for a few days, overdosed on Vrylar (took sleeve) started feeling bad, neighbors came, called hospital. Precipitating Factors Client states some suicidal thinking, but that's baseline. Wishes she hadn't done it (overdosed). Feels she can go home, will use coping skills (think about it first, call neighbors, utilize [facility] support. Disposition BEHAVIOR: Client regretting overdose. Reports restless legs (this technical document writer passed on to doctor). EYE CONTACT: Good MOOD: Seemed groggy, tired, remorseful, but ready to go home. AFFECT: Congruent to mood APPETITE: N/A SLEEP(trouble falling/staying asleep: N/A Plan Plan is to think it through should she agaiin get the urge to overdose
--- NOTE | 2020-02-18 14:49 | NUR.NOTE ---
Referral faxed to [facility] Dr. Robles.Nursing Note:
--- NOTE | 2020-02-18 15:04 | PDOC.MHCN ---
Date of service: 02/18/20 Time of Service: 15:10 Mental Health Crisis Note Presenting Issue How did you arrive at the ED and why did you come: Client had been feeling more suicidal than usual for a few days, took sleeve of Vrylar, started to feel bad. Neighbors came over, called hospital. Precipitating Factors Client feels ready to go home. Some suicidal thinking; client states that's baseline. Says she, Shouldn't have done it. Discussed coping skill: will think it through, call neighbors (friends), utilize [facility] support. Disposition BEHAVIOR: Seems remorseful, stated she shouldn't have done it. Complaning of restless leg (this race and sports book writer passed on to doctor). EYE CONTACT: good MOOD: Tired, groggy ,remorseful AFFECT: congruent to mood APPETITE: N/A SLEEP(trouble falling/staying asleep: N/A Plan Return home. She will think it through, call neighbors (friends), utilize [facility] support.
[2020-02-18 15:16] LABS: Anion Gap 9.5 mmol/L (3-11); BUN 9 mg/dL (7-18); CO2 21.5 mmol/L (21.0-32.0); CREATININE 0.79 mg/dL (0.55-1.02); Calcium 8.8 mg/dL (8.5-10.1); Chloride 111 mmol/L (98-107); Glucose 87 mg/dL (74-106); Potassium 3.9 mmol/L (3.5-5.1); Sodium 142 mmol/L (136-145)
== END 2020-02-18 15:53 | disposition home or self-care (01) ==
PROVIDERS: Emergency Provider Emergency Medicine; PCP Family Medicine
DX: R45.1 Restlessness and agitation (principal); R45.6 Violent behavior; Z78.1 Physical restraint status; F31.9 Bipolar disorder, unspecified
CPT/HCPCS: 36415; 80048; 80053; 87637; 93005; 96360; 96372; 99284; 80320; 80329; 84443; 85025; 93010; J1200; J1630; J2250

== ENCOUNTER 2020-03-10 03:03 | Outpatient (CLI) | payer MEDICARE, MEDICAID, SELFPAY ==
[2020-03-10 13:08] LABS: Abs Immature Grans 0.02 10^3/uL (0.0-0.06); Absolute Basophil Count 0.07 10^3/uL (0.0-0.2); Absolute Eosinophil Count 0.34 10^3/uL (0.0-0.7); Absolute Lymphocyte Count 1.61 10^3/uL (1.2-3.4); Basophils % 0.9; Eosinophils % 4.4; HCT 40.9 % (36.0-46.0); HGB 14.2 g/dL (11.2-15.7); Immature Grans % 0.3; Lymphocytes % 20.8; MCHC 34.7 % (32.0-36.0); MCV 92.1 fL (80-95); MPV 9.2 fL (8.0-11.0); Monocytes % 6.5; Neutrophils % 67.1; Nucleated RBC 0 %; Platelet Count 370 10^3/uL (130-400); RBC 4.44 10^6/uL (3.93-5.22); RDW 11.9 % (11.7-14.6); RDW-SD 40.3 fL; WBC 7.74 10^3/uL (4.4-10.8)
== END 2020-03-10 03:23 ==
PROVIDERS: PCP Family Medicine; Visit Provider Nurse Practitioner Psychiatric/Mental Health
DX: F20.9 Schizophrenia, unspecified (principal); Z79.899 Other long term (current) drug therapy
CPT/HCPCS: 36415; 85025

== ENCOUNTER 2020-04-07 02:46 | Outpatient (CLI) | payer MEDICARE, MEDICAID, SELFPAY ==
[2020-04-07 12:42] LABS: Abs Immature Grans 0.03 10^3/uL (0.0-0.06); Absolute Basophil Count 0.06 10^3/uL (0.0-0.2); Absolute Eosinophil Count 0.48 10^3/uL (0.0-0.7); Absolute Neutrophil Count 5.75 10^3/uL (1.2-6.7); Basophils % 0.7; Eosinophils % 5.4; HCT 42.7 % (36.0-46.0); HGB 14.2 g/dL (11.2-15.7); Immature Grans % 0.3; Lymphocytes % 22.4; MCH 31.6 pg (27.0-33.0); MCHC 33.3 % (32.0-36.0); MCV 94.9 fL (80-95); MPV 9.3 fL (8.0-11.0); Monocytes % 6.7; Neutrophils % 64.5; Nucleated RBC 0 %; Platelet Count 415 10^3/uL (130-400); RDW 12.6 % (11.7-14.6); WBC 8.92 10^3/uL (4.4-10.8)
== END 2020-04-07 02:47 | disposition home or self-care (01) ==
LOC: LOS 02:46
PROVIDERS: Psychiatry & Neurology Psychiatry; PCP Family Medicine; Visit Provider Family Medicine
DX: F20.9 Schizophrenia, unspecified (principal); Z79.899 Other long term (current) drug therapy
CPT/HCPCS: 36415; 85025

== ENCOUNTER 2020-05-04 03:36 | Outpatient (CLI) | payer MEDICARE, MEDICAID, SELFPAY ==
[2020-05-04 12:34] LABS: Abs Immature Grans 0.03 10^3/uL (0.0-0.06); Absolute Basophil Count 0.07 10^3/uL (0.0-0.2); Absolute Eosinophil Count 0.54 10^3/uL (0.0-0.7); Absolute Lymphocyte Count 1.86 10^3/uL (1.2-3.4); Absolute Monocyte Count 0.54 10^3/uL (0.1-0.8); Absolute Neutrophil Count 7.67 10^3/uL (1.2-6.7); Basophils % 0.7; HCT 42.6 % (36.0-46.0); HGB 14.5 g/dL (11.2-15.7); Immature Grans % 0.3; Lymphocytes % 17.4; MCH 31.9 pg (27.0-33.0); MCV 93.8 fL (80-95); MPV 9.3 fL (8.0-11.0); Neutrophils % 71.6; Nucleated RBC 0 %; Platelet Count 384 10^3/uL (130-400); RBC 4.54 10^6/uL (3.93-5.22); RDW 13.2 % (11.7-14.6); RDW-SD 45.1 fL; WBC 10.71 10^3/uL (4.4-10.8)
== END 2020-05-04 03:37 | disposition home or self-care (01) ==
LOC: LOS 03:37
PROVIDERS: PCP Family Medicine; Visit Provider Psychiatry & Neurology Psychiatry
DX: F20.9 Schizophrenia, unspecified (principal); Z79.899 Other long term (current) drug therapy
CPT/HCPCS: 36415; 85025

== ENCOUNTER 2020-06-03 03:40 | Outpatient (CLI) | payer MEDICARE, MEDICAID, SELFPAY ==
[2020-06-03 09:59] LABS: Abs Immature Grans 0.03 10^3/uL (0.0-0.06); Absolute Basophil Count 0.05 10^3/uL (0.0-0.2); Absolute Eosinophil Count 0.24 10^3/uL (0.0-0.7); Absolute Lymphocyte Count 1.58 10^3/uL (1.2-3.4); Absolute Monocyte Count 0.61 10^3/uL (0.1-0.8); Absolute Neutrophil Count 6.12 10^3/uL (1.2-6.7); Basophils % 0.6; Eosinophils % 2.8; HCT 41.2 % (36.0-46.0); HGB 14.2 g/dL (11.2-15.7); Immature Grans % 0.3; Lymphocytes % 18.3; MCH 31.9 pg (27.0-33.0); MCHC 34.5 % (32.0-36.0); MCV 92.6 fL (80-95); MPV 8.6 fL (8.0-11.0); Monocytes % 7.1; Neutrophils % 70.9; Nucleated RBC 0 %; Platelet Count 339 10^3/uL (130-400); RBC 4.45 10^6/uL (3.93-5.22); RDW 12.6 % (11.7-14.6); RDW-SD 42.9 fL; WBC 8.63 10^3/uL (4.4-10.8)
== END 2020-06-03 03:41 | disposition home or self-care (01) ==
PROVIDERS: PCP Family Medicine; Visit Provider Psychiatry & Neurology Psychiatry
DX: F20.9 Schizophrenia, unspecified (principal); Z79.899 Other long term (current) drug therapy
CPT/HCPCS: 36415; 85025

== ENCOUNTER 2020-06-29 04:26 | Outpatient (CLI) | payer MEDICARE, MEDICAID, SELFPAY ==
[2020-06-29 12:38] LABS: Abs Immature Grans 0.04 10^3/uL (0.0-0.06); Absolute Basophil Count 0.05 10^3/uL (0.0-0.2); Absolute Eosinophil Count 0.27 10^3/uL (0.0-0.7); Absolute Lymphocyte Count 2.19 10^3/uL (1.2-3.4); Absolute Monocyte Count 0.85 10^3/uL (0.1-0.8); Absolute Neutrophil Count 6.86 10^3/uL (1.2-6.7); Basophils % 0.5; Eosinophils % 2.6; HCT 40.3 % (36.0-46.0); HGB 13.9 g/dL (11.2-15.7); Immature Grans % 0.4; Lymphocytes % 21.3; MCHC 34.5 % (32.0-36.0); MCV 92.9 fL (80-95); MPV 9.4 fL (8.0-11.0); Monocytes % 8.3; Neutrophils % 66.9; Nucleated RBC 0 %; Platelet Count 386 10^3/uL (130-400); RBC 4.34 10^6/uL (3.93-5.22); RDW 12.7 % (11.7-14.6); RDW-SD 43.7 fL; WBC 10.26 10^3/uL (4.4-10.8)
== END 2020-06-29 04:27 | disposition home or self-care (01) ==
LOC: LBO 04:26
PROVIDERS: PCP Family Medicine; Visit Provider Psychiatry & Neurology Psychiatry
DX: F20.9 Schizophrenia, unspecified (principal); Z79.899 Other long term (current) drug therapy
CPT/HCPCS: 36415; 85025

== ENCOUNTER 2020-07-29 03:18 | Outpatient (CLI) | payer MEDICARE, MEDICAID, SELFPAY ==
[2020-07-29 13:01] LABS: Abs Immature Grans 0.03 10^3/uL (0.0-0.06); Absolute Basophil Count 0.04 10^3/uL (0.0-0.2); Absolute Eosinophil Count 0.48 10^3/uL (0.0-0.7); Absolute Lymphocyte Count 1.91 10^3/uL (1.2-3.4); Absolute Neutrophil Count 5.89 10^3/uL (1.2-6.7); Basophils % 0.4; Eosinophils % 5.3; HCT 40.8 % (36.0-46.0); HGB 13.9 g/dL (11.2-15.7); Immature Grans % 0.3; Lymphocytes % 21.1; MCH 31.8 pg (27.0-33.0); MCHC 34.1 % (32.0-36.0); MCV 93.4 fL (80-95); MPV 9.6 fL (8.0-11.0); Monocytes % 7.7; Neutrophils % 65.2; Nucleated RBC 0 %; Platelet Count 348 10^3/uL (130-400); RBC 4.37 10^6/uL (3.93-5.22); RDW 12.7 % (11.7-14.6); RDW-SD 43.8 fL; WBC 9.05 10^3/uL (4.4-10.8)
== END 2020-07-29 03:19 | disposition home or self-care (01) ==
LOC: LOS 03:18
PROVIDERS: PCP Family Medicine; Visit Provider Psychiatry & Neurology Psychiatry
DX: F20.9 Schizophrenia, unspecified (principal); Z79.899 Other long term (current) drug therapy
CPT/HCPCS: 36415; 85025

== ENCOUNTER 2020-08-26 02:03 | Outpatient (CLI) | payer MEDICARE, MEDICAID, SELFPAY ==
[2020-08-26 12:49] LABS: Abs Immature Grans 0.04 10^3/uL (0.0-0.06); Absolute Basophil Count 0.07 10^3/uL (0.0-0.2); Absolute Eosinophil Count 0.58 10^3/uL (0.0-0.7); Absolute Lymphocyte Count 1.74 10^3/uL (1.2-3.4); Absolute Monocyte Count 0.59 10^3/uL (0.1-0.8); Absolute Neutrophil Count 6.03 10^3/uL (1.2-6.7); Basophils % 0.8; Eosinophils % 6.4; HGB 13.7 g/dL (11.2-15.7); Immature Grans % 0.4; Lymphocytes % 19.2; MCH 31.6 pg (27.0-33.0); MCHC 33.4 % (32.0-36.0); MCV 94.7 fL (80-95); MPV 9.5 fL (8.0-11.0); Monocytes % 6.5; Neutrophils % 66.7; Nucleated RBC 0 %; Platelet Count 317 10^3/uL (130-400); RBC 4.33 10^6/uL (3.93-5.22); RDW-SD 45.1 fL; WBC 9.05 10^3/uL (4.4-10.8)
== END 2020-08-26 02:04 | disposition home or self-care (01) ==
LOC: LOS 02:03
PROVIDERS: PCP Family Medicine; Visit Provider Psychiatry & Neurology Psychiatry
DX: F20.9 Schizophrenia, unspecified (principal); Z79.899 Other long term (current) drug therapy
CPT/HCPCS: 36415; 85025

== ENCOUNTER 2020-09-24 08:11 | Outpatient (CLI) | payer MEDICARE, MEDICAID, SELFPAY ==
[2020-09-24 13:04] LABS: Abs Immature Grans 0.03 10^3/uL (0.0-0.06); Absolute Basophil Count 0.06 10^3/uL (0.0-0.2); Absolute Eosinophil Count 0.44 10^3/uL (0.0-0.7); Absolute Lymphocyte Count 1.94 10^3/uL (1.2-3.4); Absolute Monocyte Count 0.59 10^3/uL (0.1-0.8); Absolute Neutrophil Count 4.54 10^3/uL (1.2-6.7); Basophils % 0.8; Eosinophils % 5.8; HCT 40.9 % (36.0-46.0); HGB 14.1 g/dL (11.2-15.7); Immature Grans % 0.4; Lymphocytes % 25.5; MCH 31.8 pg (27.0-33.0); MCHC 34.5 % (32.0-36.0); MCV 92.1 fL (80-95); MPV 9.6 fL (8.0-11.0); Monocytes % 7.8; Neutrophils % 59.7; Nucleated RBC 0 %; Platelet Count 379 10^3/uL (130-400); RBC 4.44 10^6/uL (3.93-5.22); RDW 12.5 % (11.7-14.6); RDW-SD 42.1 fL
== END 2020-09-24 08:12 | disposition home or self-care (01) ==
LOC: LOS 08:14
PROVIDERS: PCP Family Medicine; Visit Provider Psychiatry & Neurology Psychiatry
DX: F20.9 Schizophrenia, unspecified (principal); Z79.899 Other long term (current) drug therapy
CPT/HCPCS: 36415; 85025

== ENCOUNTER 2020-10-22 02:47 | Outpatient (CLI) | payer MEDICARE, MEDICAID, SELFPAY ==
[2020-10-22 11:50] LABS: Abs Immature Grans 0.07 10^3/uL (0.0-0.06); Absolute Basophil Count 0.06 10^3/uL (0.0-0.2); Absolute Eosinophil Count 0.36 10^3/uL (0.0-0.7); Absolute Lymphocyte Count 2.07 10^3/uL (1.2-3.4); Absolute Monocyte Count 0.59 10^3/uL (0.1-0.8); Absolute Neutrophil Count 5.33 10^3/uL (1.2-6.7); Basophils % 0.7; Eosinophils % 4.2; HCT 40.6 % (36.0-46.0); HGB 13.8 g/dL (11.2-15.7); Immature Grans % 0.8; Lymphocytes % 24.4; MCV 94.2 fL (80-95); MPV 9.1 fL (8.0-11.0); Neutrophils % 62.9; Nucleated RBC 0 %; Platelet Count 364 10^3/uL (130-400); RBC 4.31 10^6/uL (3.93-5.22); RDW 12.6 % (11.7-14.6); RDW-SD 43.8 fL; WBC 8.48 10^3/uL (4.4-10.8)
== END 2020-10-22 02:48 | disposition home or self-care (01) ==
LOC: LOS 02:47
PROVIDERS: PCP Family Medicine; Visit Provider Psychiatry & Neurology Psychiatry
DX: F20.9 Schizophrenia, unspecified (principal); Z79.899 Other long term (current) drug therapy
CPT/HCPCS: 36415; 85025

== ENCOUNTER 2020-11-18 02:28 | Outpatient (CLI) | payer MEDICARE, MEDICAID, SELFPAY ==
[2020-11-18 12:43] LABS: Abs Immature Grans 0.02 10^3/uL (0.0-0.06); Absolute Basophil Count 0.05 10^3/uL (0.0-0.2); Absolute Eosinophil Count 0.31 10^3/uL (0.0-0.7); Absolute Lymphocyte Count 1.63 10^3/uL (1.2-3.4); Absolute Monocyte Count 0.52 10^3/uL (0.1-0.8); Absolute Neutrophil Count 4.66 10^3/uL (1.2-6.7); Basophils % 0.7; Eosinophils % 4.3; HCT 40.5 % (36.0-46.0); HGB 13.8 g/dL (11.2-15.7); Immature Grans % 0.3; Lymphocytes % 22.7; MCH 31.9 pg (27.0-33.0); MCHC 34.1 % (32.0-36.0); MCV 93.5 fL (80-95); MPV 9.6 fL (8.0-11.0); Monocytes % 7.2; Neutrophils % 64.8; Nucleated RBC 0 %; Platelet Count 370 10^3/uL (130-400); RBC 4.33 10^6/uL (3.93-5.22); RDW 12.1 % (11.7-14.6); RDW-SD 42.2 fL; WBC 7.19 10^3/uL (4.4-10.8)
== END 2020-11-18 02:29 | disposition home or self-care (01) ==
PROVIDERS: PCP Family Medicine; Visit Provider Psychiatry & Neurology Psychiatry
DX: F20.9 Schizophrenia, unspecified (principal)
CPT/HCPCS: 36415; 85025

== ENCOUNTER 2020-12-14 09:53 | Outpatient (CLI) | payer MEDICARE, MEDICAID, SELFPAY ==
[2020-12-14 13:25] LABS: Abs Immature Grans 0.03 10^3/uL (0.0-0.06); Absolute Basophil Count 0.04 10^3/uL (0.0-0.2); Absolute Eosinophil Count 0.19 10^3/uL (0.0-0.7); Absolute Lymphocyte Count 1.74 10^3/uL (1.2-3.4); Absolute Monocyte Count 0.49 10^3/uL (0.1-0.8); Absolute Neutrophil Count 5.87 10^3/uL (1.2-6.7); Basophils % 0.5; Eosinophils % 2.3; HCT 40.2 % (36.0-46.0); Immature Grans % 0.4; Lymphocytes % 20.8; MCH 32.1 pg (27.0-33.0); MCHC 34.8 % (32.0-36.0); MCV 92.2 fL (80-95); Monocytes % 5.9; Neutrophils % 70.1; Nucleated RBC 0 %; Platelet Count 324 10^3/uL (130-400); RBC 4.36 10^6/uL (3.93-5.22); RDW 11.9 % (11.7-14.6); RDW-SD 40.3 fL; WBC 8.36 10^3/uL (4.4-10.8)
== END 2020-12-14 09:54 | disposition home or self-care (01) ==
LOC: LBO 09:59
PROVIDERS: PCP Family Medicine; Visit Provider Psychiatry & Neurology Psychiatry
DX: F20.9 Schizophrenia, unspecified (principal); Z79.899 Other long term (current) drug therapy
CPT/HCPCS: 36415; 85025

== ENCOUNTER 2021-01-13 13:28 | Outpatient (CLI) | payer MEDICARE, MEDICAID, SELFPAY ==
[2021-01-13 13:38] LABS: Abs Immature Grans 0.03 10^3/uL (0.0-0.06); Absolute Basophil Count 0.04 10^3/uL (0.0-0.2); Absolute Monocyte Count 0.53 10^3/uL (0.1-0.8); Absolute Neutrophil Count 6.01 10^3/uL (1.2-6.7); Basophils % 0.4; Eosinophils % 2.2; HCT 38.6 % (36.0-46.0); HGB 13.3 g/dL (11.2-15.7); Immature Grans % 0.3; Lymphocytes % 23.6; MCHC 34.5 % (32.0-36.0); MPV 8.8 fL (8.0-11.0); Monocytes % 5.9; Neutrophils % 67.6; Nucleated RBC 0 %; Platelet Count 324 10^3/uL (130-400); RBC 4.15 10^6/uL (3.93-5.22); RDW 12.1 % (11.7-14.6); RDW-SD 41.7 fL; WBC 8.91 10^3/uL (4.4-10.8)
== END 2021-01-13 13:29 | disposition home or self-care (01) ==
LOC: LBO 13:41
PROVIDERS: PCP Family Medicine; Visit Provider Psychiatry & Neurology Psychiatry
DX: F20.9 Schizophrenia, unspecified (principal); Z79.899 Other long term (current) drug therapy
CPT/HCPCS: 36415; 85025

== ENCOUNTER 2021-02-04 02:58 | Outpatient (CLI) | payer MEDICARE, MEDICAID, SELFPAY ==
[2021-02-04 11:14] LABS: Abs Immature Grans 0.02 10^3/uL (0.0-0.06); Absolute Basophil Count 0.06 10^3/uL (0.0-0.2); Absolute Eosinophil Count 0.29 10^3/uL (0.0-0.7); Absolute Lymphocyte Count 1.85 10^3/uL (1.2-3.4); Absolute Monocyte Count 0.56 10^3/uL (0.1-0.8); Absolute Neutrophil Count 4.27 10^3/uL (1.2-6.7); Basophils % 0.9; Eosinophils % 4.1; HCT 41.4 % (36.0-46.0); HGB 13.8 g/dL (11.2-15.7); Immature Grans % 0.3; Lymphocytes % 26.2; MCH 31.9 pg (27.0-33.0); MCHC 33.3 % (32.0-36.0); MCV 95.8 fL (80-95); MPV 9.4 fL (8.0-11.0); Monocytes % 7.9; Neutrophils % 60.6; Nucleated RBC 0 %; Platelet Count 380 10^3/uL (130-400); RBC 4.32 10^6/uL (3.93-5.22); RDW 12.3 % (11.7-14.6); RDW-SD 43.8 fL; WBC 7.05 10^3/uL (4.4-10.8)
== END 2021-02-04 02:59 | disposition home or self-care (01) ==
LOC: LOS 02:58
PROVIDERS: PCP Family Medicine; Visit Provider Psychiatry & Neurology Psychiatry
DX: F20.9 Schizophrenia, unspecified (principal)
CPT/HCPCS: 36415; 85025

== ENCOUNTER 2021-03-10 03:56 | Outpatient (CLI) | payer MEDICARE, MEDICAID, SELFPAY | END 2021-03-10 03:57 | disposition home or self-care (01) | LOC: LBO 03:56 | PROVIDERS: PCP Family Medicine; Visit Provider Psychiatry & Neurology Psychiatry ==

== ENCOUNTER 2021-03-12 04:03 | Outpatient (CLI) | payer MEDICARE, MEDICAID, SELFPAY ==
[2021-03-12 20:34] LABS: Abs Immature Grans 0.02 10^3/uL (0.0-0.06); Absolute Basophil Count 0.05 10^3/uL (0.0-0.2); Absolute Eosinophil Count 0.29 10^3/uL (0.0-0.7); Absolute Lymphocyte Count 1.62 10^3/uL (1.2-3.4); Absolute Monocyte Count 0.36 10^3/uL (0.1-0.8); Absolute Neutrophil Count 5.24 10^3/uL (1.2-6.7); Basophils % 0.7; Eosinophils % 3.8; HCT 43.1 % (36.0-46.0); HGB 14.4 g/dL (11.2-15.7); Immature Grans % 0.3; Lymphocytes % 21.4; MCH 31.9 pg (27.0-33.0); MCHC 33.4 % (32.0-36.0); MCV 95.6 fL (80-95); MPV 9.7 fL (8.0-11.0); Monocytes % 4.7; Neutrophils % 69.1; Nucleated RBC 0 %; Platelet Count 381 10^3/uL (130-400); RBC 4.51 10^6/uL (3.93-5.22); RDW 12.4 % (11.7-14.6); RDW-SD 43.8 fL; WBC 7.58 10^3/uL (4.4-10.8)
[2021-03-12 20:58] LABS: TSH (W/Ref FT4) 1.32 uIU/mL (0.36-3.74)
[2021-03-15 10:52] LABS: Hepatitis C Ab w Rflx HCV PCR Negative (Negative)
== END 2021-03-12 04:04 | disposition home or self-care (01) ==
LOC: LBO 04:03
PROVIDERS: PCP Family Medicine; Visit Provider Psychiatry & Neurology Psychiatry
DX: R94.6 Abnormal results of thyroid function studies (principal); Z83.3 Family history of diabetes mellitus; F25.9 Schizoaffective disorder, unspecified; Z11.59 Encounter for screening for other viral diseases
CPT/HCPCS: 86803; 83036; 84443; 85025

== ENCOUNTER 2021-04-12 03:45 | Outpatient (CLI) | payer MEDICARE, MEDICAID, SELFPAY ==
[2021-04-12 14:07] LABS: Abs Immature Grans 0.02 10^3/uL (0.0-0.06); Absolute Basophil Count 0.04 10^3/uL (0.0-0.2); Absolute Eosinophil Count 0.14 10^3/uL (0.0-0.7); Absolute Lymphocyte Count 1.61 10^3/uL (1.2-3.4); Absolute Monocyte Count 0.52 10^3/uL (0.1-0.8); Absolute Neutrophil Count 5.39 10^3/uL (1.2-6.7); Basophils % 0.5; Eosinophils % 1.8; HCT 39.9 % (36.0-46.0); HGB 13.6 g/dL (11.2-15.7); Immature Grans % 0.3; Lymphocytes % 20.9; MCH 32.1 pg (27.0-33.0); MCHC 34.1 % (32.0-36.0); MCV 94.1 fL (80-95); MPV 9.2 fL (8.0-11.0); Monocytes % 6.7; Neutrophils % 69.8; Nucleated RBC 0 %; Platelet Count 341 10^3/uL (130-400); RBC 4.24 10^6/uL (3.93-5.22); RDW 12.4 % (11.7-14.6); WBC 7.72 10^3/uL (4.4-10.8)
[2021-04-12 15:25] LABS: Vitamin D 25 Total 38.6 ng/mL (30-100)
[2021-04-12 15:29] LABS: ALT 31 U/L (14-59); AST 15 U/L (15-37); Albumin 3.8 g/dL (3.4-5.0); Alkaline Phosphatase 131 U/L (46-116); Anion Gap 16.6 mmol/L (3-11); BUN 7 mg/dL (7-18); Bilirubin, Total 0.2 mg/dL (0.2-1.0); CO2 19.4 mmol/L (21.0-32.0); CREATININE 0.7 mg/dL (0.55-1.02); Calculated LDL 89 mg/dL (<100); Chloride 107 mmol/L (98-107); Cholesterol 169 mg/dL (<200); Ferritin 95 ng/mL (8-252); Glucose 131 mg/dL (74-106); HDL Cholesterol 41 mg/dL (40-60); Magnesium 2.2 mg/dL (1.8-2.4); Potassium 3.5 mmol/L (3.5-5.1); Sodium 143 mmol/L (136-145); TSH 1.43 uIU/mL (0.36-3.74); Total Protein 6.7 g/dL (6.4-8.2); Triglyceride 195 mg/dL (<150); Vitamin B12 655 pg/mL (193-986)
[2021-04-12 15:32] LABS: Folate > 20.0 ng/mL (8.6-20.0)
[2021-04-12 15:50] LABS: C-Reactive Protein 0.65 mg/dL (0.0-0.3)
[2021-04-12 22:25] LABS: T3,Free 3.3 pg/mL (2.8-5.3)
== END 2021-04-12 03:46 | disposition home or self-care (01) ==
LOC: LBO 03:46
PROVIDERS: PCP Family Medicine; Visit Provider Psychiatry & Neurology Psychiatry
DX: F25.1 Schizoaffective disorder, depressive type (principal); Z83.3 Family history of diabetes mellitus; Z79.899 Other long term (current) drug therapy
CPT/HCPCS: 36415; 80053; 80061; 82306; 82607; 82728; 82746; 83036; 83735; 84439; 84443; 84481; 85025; 86140

== ENCOUNTER 2021-04-30 04:27 | Outpatient (CLI) | payer MEDICARE, MEDICAID, SELFPAY | END 2021-04-30 04:28 | disposition home or self-care (01) | PROVIDERS: PCP Family Medicine; Visit Provider Psychiatry & Neurology Psychiatry ==

== ENCOUNTER 2021-05-04 03:25 | Outpatient (CLI) | payer MEDICARE, MEDICAID, SELFPAY ==
[2021-05-04 12:58] LABS: Abs Immature Grans 0.03 10^3/uL (0.0-0.06); Absolute Basophil Count 0.07 10^3/uL (0.0-0.2); Absolute Eosinophil Count 0.29 10^3/uL (0.0-0.7); Absolute Lymphocyte Count 2.17 10^3/uL (1.2-3.4); Absolute Monocyte Count 0.63 10^3/uL (0.1-0.8); Absolute Neutrophil Count 6.26 10^3/uL (1.2-6.7); Basophils % 0.7; Eosinophils % 3.1; HCT 40.9 % (36.0-46.0); HGB 13.9 g/dL (11.2-15.7); Immature Grans % 0.3; MPV 8.8 fL (8.0-11.0); Monocytes % 6.7; Neutrophils % 66.2; Nucleated RBC 0 %; Platelet Count 360 10^3/uL (130-400); RBC 4.35 10^6/uL (3.93-5.22); RDW 12.1 % (11.7-14.6); RDW-SD 41.9 fL; WBC 9.45 10^3/uL (4.4-10.8)
[2021-05-04 13:27] LABS: Hemoglobin A1C 5.3 % (<5.7)
[2021-05-04 14:01] LABS: TSH (W/Ref FT4) 2.69 uIU/mL (0.36-3.74)
[2021-05-05 10:26] LABS: Hepatitis C Ab w Rflx HCV PCR Negative (Negative)
== END 2021-05-04 03:26 | disposition home or self-care (01) ==
LOC: LBO 03:26
PROVIDERS: PCP Family Medicine; Visit Provider Psychiatry & Neurology Psychiatry
DX: F25.9 Schizoaffective disorder, unspecified (principal); Z83.3 Family history of diabetes mellitus; R94.6 Abnormal results of thyroid function studies; Z11.59 Encounter for screening for other viral diseases
CPT/HCPCS: 36415; 86803; 83036; 84443; 85025

== ENCOUNTER 2021-05-21 01:49 | Outpatient (CLI) | payer MEDICARE, MEDICAID, SELFPAY ==
[2021-05-21 12:07] LABS: Abs Immature Grans 0.03 10^3/uL (0.0-0.06); Absolute Basophil Count 0.07 10^3/uL (0.0-0.2); Absolute Eosinophil Count 0.31 10^3/uL (0.0-0.7); Absolute Lymphocyte Count 1.86 10^3/uL (1.2-3.4); Absolute Monocyte Count 0.58 10^3/uL (0.1-0.8); Absolute Neutrophil Count 4.92 10^3/uL (1.2-6.7); Basophils % 0.9; HCT 40.2 % (36.0-46.0); HGB 13.8 g/dL (11.2-15.7); Immature Grans % 0.4; Lymphocytes % 23.9; MCH 32.6 pg (27.0-33.0); MCHC 34.3 % (32.0-36.0); MPV 8.7 fL (8.0-11.0); Monocytes % 7.5; Neutrophils % 63.3; Nucleated RBC 0 %; Platelet Count 395 10^3/uL (130-400); RBC 4.23 10^6/uL (3.93-5.22); RDW 12.4 % (11.7-14.6); RDW-SD 43.1 fL; WBC 7.77 10^3/uL (4.4-10.8)
== END 2021-05-21 01:50 | disposition home or self-care (01) ==
LOC: LBO 01:49
PROVIDERS: PCP Family Medicine; Visit Provider Psychiatry & Neurology Psychiatry
DX: F20.9 Schizophrenia, unspecified (principal)
CPT/HCPCS: 36415; 85025

== ENCOUNTER 2021-06-16 02:56 | Outpatient (CLI) | payer MEDICARE, MEDICAID, SELFPAY | END 2021-06-16 02:57 | disposition home or self-care (01) | LOC: LBO 02:56 | PROVIDERS: PCP Family Medicine; Visit Provider Psychiatry & Neurology Psychiatry ==

== ENCOUNTER 2021-06-24 02:41 | Outpatient (CLI) | payer MEDICARE, MEDICAID, SELFPAY ==
[2021-06-24 11:28] LABS: Abs Immature Grans 0.03 10^3/uL (0.0-0.06); Absolute Basophil Count 0.06 10^3/uL (0.0-0.2); Absolute Eosinophil Count 0.29 10^3/uL (0.0-0.7); Absolute Lymphocyte Count 2.21 10^3/uL (1.2-3.4); Absolute Monocyte Count 0.52 10^3/uL (0.1-0.8); Absolute Neutrophil Count 5.63 10^3/uL (1.2-6.7); Basophils % 0.7; Eosinophils % 3.3; HCT 39.6 % (36.0-46.0); HGB 13.8 g/dL (11.2-15.7); Immature Grans % 0.3; Lymphocytes % 25.3; MCH 32.9 pg (27.0-33.0); MCHC 34.8 % (32.0-36.0); MCV 94.5 fL (80-95); MPV 8.7 fL (8.0-11.0); Monocytes % 5.9; Neutrophils % 64.5; Platelet Count 339 10^3/uL (130-400); RBC 4.19 10^6/uL (3.93-5.22); RDW 12.1 % (11.7-14.6); RDW-SD 41.8 fL; WBC 8.74 10^3/uL (4.4-10.8)
== END 2021-06-24 02:42 | disposition home or self-care (01) ==
LOC: LBO 02:41
PROVIDERS: PCP Family Medicine; Visit Provider Psychiatry & Neurology Psychiatry
DX: F20.9 Schizophrenia, unspecified (principal); Z79.899 Other long term (current) drug therapy
CPT/HCPCS: 36415; 85025

== ENCOUNTER 2021-07-08 03:45 | Outpatient (CLI) | payer MEDICARE, MEDICAID, SELFPAY ==
[2021-07-08 12:30] LABS: Abs Immature Grans 0.02 10^3/uL (0.0-0.06); Absolute Basophil Count 0.04 10^3/uL (0.0-0.2); Absolute Eosinophil Count 0.18 10^3/uL (0.0-0.7); Absolute Lymphocyte Count 2.01 10^3/uL (1.2-3.4); Absolute Monocyte Count 0.41 10^3/uL (0.1-0.8); Absolute Neutrophil Count 5.87 10^3/uL (1.2-6.7); Basophils % 0.5; Eosinophils % 2.1; HCT 39.1 % (36.0-46.0); HGB 13.6 g/dL (11.2-15.7); Immature Grans % 0.2; Lymphocytes % 23.6; MCH 32.6 pg (27.0-33.0); MCHC 34.8 % (32.0-36.0); MCV 94 fL (80-95); MPV 8.7 fL (8.0-11.0); Monocytes % 4.8; Neutrophils % 68.8; Platelet Count 371 10^3/uL (130-400); RBC 4.17 10^6/uL (3.93-5.22); RDW-SD 41.8 fL; WBC 8.53 10^3/uL (4.4-10.8)
== END 2021-07-08 03:46 | disposition home or self-care (01) ==
LOC: LBO 03:45
PROVIDERS: PCP Family Medicine; Visit Provider Psychiatry & Neurology Psychiatry
DX: F20.9 Schizophrenia, unspecified (principal); Z79.899 Other long term (current) drug therapy
CPT/HCPCS: 36415; 85025

== ENCOUNTER 2021-08-11 03:56 | Outpatient (CLI) | payer MEDICARE, MEDICAID, SELFPAY ==
[2021-08-11 14:10] LABS: Abs Immature Grans 0.03 10^3/uL (0.0-0.06); Absolute Basophil Count 0.05 10^3/uL (0.0-0.2); Absolute Eosinophil Count 0.29 10^3/uL (0.0-0.7); Absolute Lymphocyte Count 2.05 10^3/uL (1.2-3.4); Absolute Monocyte Count 0.51 10^3/uL (0.1-0.8); Absolute Neutrophil Count 5.23 10^3/uL (1.2-6.7); Basophils % 0.6; Eosinophils % 3.6; HGB 14.4 g/dL (11.2-15.7); Immature Grans % 0.4; Lymphocytes % 25.1; MCH 33.3 pg (27.0-33.0); MCV 92 fL (80-95); MPV 8.9 fL (8.0-11.0); Monocytes % 6.3; Platelet Count 346 10^3/uL (130-400); RBC 4.33 10^6/uL (3.93-5.22); RDW-SD 41.8 fL; WBC 8.16 10^3/uL (4.4-10.8)
== END 2021-08-11 03:57 | disposition home or self-care (01) ==
LOC: LBO 03:57
PROVIDERS: PCP Family Medicine; Visit Provider Psychiatry & Neurology Psychiatry
DX: F20.9 Schizophrenia, unspecified (principal); Z79.899 Other long term (current) drug therapy
CPT/HCPCS: 36415; 85025

== ENCOUNTER 2021-09-05 11:11 | Emergency (ER) | payer MEDICARE, MEDICAID, SELFPAY ==
[2021-09-05] VITALS (45 sets, daily range): BP systolic 96–142; BP diastolic 49–85; PULSE 72–132; RESP 11–18; TEMP 36.1–36.6; O2SAT 96–100
--- NOTE | 2021-09-05 11:15 | RT.EKG_ITS ---
APPROVED REPORT Exam: Resting ECG Reason for Exam: chest pain Patient Location: E HR:123 bpm ECG Measurements Heart Rate 123 AXIS WV 131 P 64 QRSd 81 QRS 67 QT 333 T 27 QTc 477 Conclusion Sinus tachycardia, no acute st changes
--- NOTE | 2021-09-05 12:00 | ED.GENADUL_ITS ---
Discharge Plan Disposition Patient Disposition: HOME Condition: Good Discharge Details Clinical Impression: Anxiety, Chest pain, Stress Primary Care Provider: Moo Robles ED Provider: Dominga Brock Home Meds and New Rx's Prescriptions: Continued docusate sodium [Colace] 100 MG capsule 100 mg PO DAILY paroxetine HCl 40 mg Tablet 40 mg PO DAILY multivitamin Tablet 1 tab PO QAM melatonin 3 mg Tablet 1.5 mg PO HS lamotrigine 25 mg Tablet 25 mg PO HS Label Comments: take with 25 mg for total daily dose 225 mg QHS Rx Instructions: total dose 250 mg PO QHS lamotrigine 100 mg Tablet 200 mg PO HS Label Comments: take with 25 mg for total daily dose 225 mg QHS Rx Instructions: Total dose 250 mg PO QHS naproxen 500 mg Tablet 500 mg PO BID PRN PRN (Reason: Pain) omega 6-ulc-nka-fish oil [Fish Oil] 1,000 mg (120 mg-180 mg) Capsule 1 cap PO TID magnesium oxide 400 mg magnesium Tablet 400 mg PO BID omega-3 fatty acids-fish oil 300-1,000 mg capsule metformin 500 mg tablet 500 mg PO DAILY clonidine HCl 0.1 mg Tablet 0.1 mg PO BID PRN benztropine 0.5 mg tablet 0.5 mg PO QHS polyethylene glycol 3350 [Miralax] 17 gram Powder In Packet 17 g PO DAILY PRN clozapine 100 mg tablet 200 mg PO QHS omeprazole 20 mg capsule,delayed release(DR/EC) 20 mg PO DAILY hydroxyzine HCl 25 mg tablet 25 mg PO TID PRN PRN vitamin B complex Capsule 1 cap PO DAILY cholecalciferol (vitamin D3) 25 mcg (1,000 unit) Tablet 25 mcg PO DAILY trazodone 100 mg tablet 100 mg PO QHS clozapine 25 mg tablet 50 mg PO QHS Rx Instructions: take with 100 mg for total daily dose 150 mg QHS acetylcysteine [NAC] 600 mg capsule 1,200 mg PO DAILY Label Comments: Take 2 capsule by mouth twice a day levomefolate calcium [L-Methylfolate] 15 mg tablet 15 mg PO DAILY Label Comments: Take 1 tablet by mouth once a day Discharge Instructions Instructions: Chest Pain (ED), Anxiety (ED) Additional Instructions: Your imaging and labs are reassuring here today. I am concerned that your chest discomfort was associated with your large amount of stress at home worsening your anxiety. As discussed, I would like for you to discuss this further with your psychiatrist. Please also follow-up in the next 1 to your primary care for reevaluation. If you develop recurrent chest pain, shortness of breath, fever /chills or other new/worsening symptoms please seek care urgently once again. Referrals: Moo Robles [Primary Care Provider] - Discharge Data Discharge Date/Time-TO BE ENTERED AT DEPARTURE: 09/05/21 16:52 Medical Decision Making Patient is a pleasant 41 year old female presneting to the ED via EMS with c/c of chest discomfort. She states that she was seated when she had development of pulsatile and sharp chest pain. No worsened with movement, walking/exertion. States with this she has had SOB. Deneis inspiratory pain. No fevers/chills. No CP prior ot this event. No radiation of pain but does endorse some tingling in LUE. Denies recent travel, LE discomfort. No recent illness. No pain in her back, no trauma. Denies hx of cardiac disease or blood clots. She states that she has had large amount of stress/anxiety associated with needing to move out of her current apartment without another place to go as of yet. Concerned about her cats. She states she has had panic attacks in the past but symptoms have never been this severe in the past. On exam, patient appears anxious. She is tachycardic and tachypnic. Lungs are clear. Aside from tachycardia, normal cardiac exam. No LE edema or calf tenderness. 2+ distal pulses in all extremities. Patient denies SI, HI. Appears to have good personal insight, is aware of her increasing anxiety/stress and limited coping mechanisms. Primarily concerned for panic attack. She has hda no exertional components of this, came on when she was having increasing thoughts of stress around housing. With her SOB, CP and tachycardia also considered PE and ACS but find these less likely. Will give dose of ativan and reassess. ECG reviewed by physician. Sinus tachycardia noted, no acute ischemic changes noted. After first dose of Ativan, patient reports that her pain is completely subsided although she continues to have some persistent anxiety. We will give her another dose. FINDINGS: ? Lungs: Unremarkable. No consolidation. Pleural spaces: Unremarkable. No pleural effusion. No pneumothorax. Heart/Mediastinum: Unremarkable. No cardiomegaly. Bones/joints: Unremarkable. IMPRESSION: No acute findings. Labs reviewed. Patient has no leukocytosis, normal H&H. D-dimer within normal limits. CMP without significant abnormality. Initial troponin within normal limits. Repeat troponin remains WNL. Patient feels signficantly improved after 2 doses of Ativan. Offered consult with MH but patient declines, she will f/u with her MH team. Encouraged f/u with PCP. Return precautiosn discussed. Encouraged hydration. Encouraged stress management techniques. We discussed options to assist with housing, she seems to have a good plan on how to move forward with this and is much more calm regarding her housing after time to think here in the ED. All of her questions and concerns were addressed, she is in agreement with this plan. HPI General Date/Time Provider Initiated Documentation: 09/05/21 11:25 . Limitations to Documentation: no limitations . Information obtained by: patient, RN notes reviewed and old records reviewed . History of Present Illness 41 year old F presents to the emergency department with the chief complaint of pulsatile chest pain, described as moderate, with intensity rated at 8. Quality is described as constant (pulsatile), and is localized to the chest. Patient reports no radiation. Patient started experiencing this minute(s) and it has been constant. No relieving factors improve symptom(s), No exacerbating factors reported . Patient notes no other symptoms.. Patient did receive the following treatments prior to arrival, none Related Data Home Medications Medication Instructions Recorded Confirmed docusate sodium 100 mg capsule 100 mg PO DAILY 07/23/17 09/05/21 (Colace) paroxetine HCl 40 mg tablet 40 mg PO DAILY 08/10/18 09/05/21 lamotrigine 100 mg tablet 200 mg PO HS 02/27/19 09/05/21 lamotrigine 25 mg tablet 25 mg PO HS 02/27/19 09/05/21 magnesium oxide 400 mg PO BID 02/27/19 09/05/21 melatonin 3 mg tablet 1.5 mg PO HS 02/27/19 09/05/21 multivitamin 1 tab PO QAM 02/27/19 09/05/21 naproxen 500 mg tablet 500 mg PO BID PRN PRN Pain 02/27/19 09/05/21 omega 0-lrv-rpu-fish oil 1,000 mg 1 cap PO TID 02/27/19 09/05/21 (120 mg-180 mg) capsule (Fish Oil) acetylcysteine 600 mg capsule (NAC) 1,200 mg PO DAILY 02/18/20 09/05/21 benztropine 0.5 mg tablet 0.5 mg PO QHS 02/18/20 09/05/21 cholecalciferol (vitamin D3) 25 25 mcg PO DAILY 02/18/20 09/05/21 mcg (1,000 unit) tablet clonidine HCl 0.1 mg tablet 0.1 mg PO BID PRN 02/18/20 09/05/21 clozapine 100 mg tablet 200 mg PO QHS 02/18/20 09/05/21 clozapine 25 mg tablet 50 mg PO QHS 02/18/20 09/05/21 hydroxyzine HCl 25 mg tablet 25 mg PO TID PRN PRN 02/18/20 09/05/21 levomefolate calcium 15 mg tablet 15 mg PO DAILY 02/18/20 09/05/21 (L-Methylfolate) metformin 500 mg tablet 500 mg PO DAILY 02/18/20 09/05/21 omeprazole 20 mg capsule,delayed 20 mg PO DAILY 02/18/20 09/05/21 release polyethylene glycol 3350 17 gram 17 g PO DAILY PRN 02/18/20 09/05/21 oral powder packet (Miralax) trazodone 100 mg tablet 100 mg PO QHS 02/18/20 09/05/21 vitamin B complex 1 cap PO DAILY 02/18/20 09/05/21 omega-3 fatty acids-fish oil 300 cap 09/05/21 09/05/21 mg-1,000 mg capsule Allergies Allergy/AdvReac Type Severity Reaction Status Date / Time niacin Allergy Intermediate Skin Rash Unverified 09/05/21 11:24 [From Niaspan Extended-Release] vilazodone [From Viibryd] AdvReac Intermediate Agitation Unverified 09/05/21 11:24 Penicillins AdvReac Mild RESTLESS Unverified 09/05/21 11:24 General Stated Complaint: Chest Pain [place]: 2 Review of Systems Constitutional Constitutional: Reports as per HPI, Denies chills, Denies fever(s), Denies headache(s), Denies lethargy and Denies poor appetite Eyes Eyes: Denies change in vision ENT Ears, Nose, Mouth, and Throat: Denies dizziness and Denies headache(s) Cardiovascular Cardiovascular: Reports as per HPI, Reports dyspnea (since discofmort began, not associated with exertion) and Denies dyspnea on exertion Respiratory Respiratory: Reports as per HPI, Denies chest congestion, Denies cough, Denies pain on inspiration, Denies pain with cough, Reports dyspnea (since discofmort began, not associated with exertion), Denies dyspnea on exertion and Denies wheezing Gastrointestinal Gastrointestinal: Reports as per HPI, Denies abdominal pain, Denies diarrhea, Denies nausea and Denies vomiting Musculoskeletal Musculoskeletal: Reports as per HPI and Denies back pain Integumentary/Breasts Skin/Breast: Reports as per HPI and Denies rash Neurologic Neurologic: Reports as per HPI, Denies dizziness and Denies headache(s) Psychiatric Psychiatric: Reports abnormal sleep pattern, Reports anxiety, Reports difficulty concentrating, Reports panic attacks, Denies homicidal ideation and Denies suicidal ideation Allergic/Immunologic Allergic/Immunologic: Denies wheezing PFSH All Active Problems (Updated 09/05/21 @ 16:41 by CONSTANCE Leyva) Anxiety (Chronic) Chest pain (Acute) Stress (Acute) Depression (Chronic) Drug overdose, intentional (Acute) Suicidal behavior with attempted self-injury (Acute) Social History Smoking/Tobacco Use Status: Current every day Tobacco Type: cigarettes Smoking risk assessment performed?: Yes Alcohol Intake: never Drug use: Never Substance use type: does not use Current gender identity: female Do you feel safe at home: Yes Do you feel safe in your relationship?: Yes Additional Social history: 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 Exam Const General: cooperative, healthy appearing, comfortable, well developed and anxious (patient appears very anxious, speaking quickly, crying, tachypnic) Nutritional Appearance: average body habitus and well nourished Orientation: alert, awake and oriented x3 HENMT Head: normal to inspection Ears: hearing grossly normal bilaterally Mouth: moist mucous membranes Chest Chest: normal inspection of the chest, normal palpation of entire chest wall and no crepitus Resp Effort & Inspection: normal respiratory effort, able to speak in complete sentences and no respiratory distress Auscultation: clear to auscultation bilaterally, no rales, no rhonchi and no wheezes Cardio Rate: tachycardic Rhythm: regular rhythm Heart Sounds: S1 normal and S2 normal GI Inspection: normal to inspection, no edema and non-distended Palpation: soft, no hepatosplenomegaly, not firm, no guarding, not rigid and nontender Auscultation: normal bowel sounds Skin General skin exam: no rashes or lesions noted Trauma: no lacerations or abrasions Neuro General: patient alert, patient awake and patient oriented x3 Cognition: normal cognition Speech: speech normal Gait: normal gait Extrem General: normal to inspection, capillary refill normal, no pedal edema, no calf tenderness and normal gait Psych Appearance: grossly normal and well kempt Mental Status: mental status grossly normal Speech and Movement: restless (very anxious) Mood: anxious mood Affect: anxious affect Attitude: cooperative Thought Process: normal Thought Content: normal (talks frequently about her needing to move) Insight: fair Judgment: fair Course Vital Signs Vital signs: Vital Signs Temperature 36.6 C 09/05/21 11:20 Pulse 132 H 09/05/21 11:20 Respiratory Rate 13 09/05/21 11:20 Blood Pressure 142/85 H 09/05/21 11:20 Pulse Oximetry 98 09/05/21 11:20 Temperature 36.6 C 09/05/21 11:20 Temperature Source Temporal Artery Scan 09/05/21 11:20 Pulse 132 H 09/05/21 11:20 Respiratory Rate 13 09/05/21 11:20 Respiratory Effort 09/05/21 11:34 Respiratory Depth Normal 09/05/21 11:34 Blood Pressure 142/85 H 09/05/21 11:20 Blood Pressure Position Sitting 09/05/21 11:20 Pulse Oximetry 98 09/05/21 11:20 Oxygen Delivery Method Room Air 09/05/21 11:20 Oxygen Flow Rate 0 09/05/21 11:20 Pain Level 7 09/05/21 11:34
[2021-09-05] MEDS: Normal Saline 1,000 ML 1000 ML IV (12:38)
[2021-09-05] MEDS: LORazepam 20 MG/10 ML VIAL ×2 (12:39→14:12)
--- NOTE | 2021-09-05 12:45 | DI.RAD_ITS ---
Exam(s) XR CHEST 2V PA LATERAL EXAM: XR CHEST 2V PA LATERAL CLINICAL HISTORY: CP. TECHNIQUE: 2D digital imaging was performed. COMPARISON: CR XR PORTABLE CHEST AP from 08/10/2018 FINDINGS: 2 views: Heart size is normal. The mediastinum is not widened. Lungs are clear. No infiltrates nor pleural effusions. IMPRESSION: No acute pulmonary findings. DATA REPOSITORY: RADIATION DOSE DELIVERED:
[2021-09-05 13:25] LABS: Abs Immature Grans 0.02 10^3/uL (0.0-0.06); Absolute Basophil Count 0.03 10^3/uL (0.0-0.2); Absolute Eosinophil Count 0.07 10^3/uL (0.0-0.7); Absolute Lymphocyte Count 1.18 10^3/uL (1.2-3.4); Absolute Neutrophil Count 5.84 10^3/uL (1.2-6.7); Basophils % 0.4; Eosinophils % 0.9; HGB 13.9 g/dL (11.2-15.7); Immature Grans % 0.3; Lymphocytes % 15.6; MCHC 33.9 % (32.0-36.0); MCV 95 fL (80-95); MPV 8.9 fL (8.0-11.0); Monocytes % 5.3; Neutrophils % 77.5; Platelet Count 387 10^3/uL (130-400); RBC 4.34 10^6/uL (3.93-5.22); RDW 12.1 % (11.7-14.6); RDW-SD 42.4 fL; WBC 7.54 10^3/uL (4.4-10.8)
[2021-09-05 13:42] LABS: ALT 27 U/L (14-59); AST 14 U/L (15-37); Albumin 3.6 g/dL (3.4-5.0); Alkaline Phosphatase 101 U/L (46-116); Anion Gap 7.6 mmol/L (3-11); BUN 6 mg/dL (7-18); Bilirubin, Total 0.2 mg/dL (0.2-1.0); CO2 24.4 mmol/L (21.0-32.0); CREATININE 0.8 mg/dL (0.55-1.02); Calcium 8.6 mg/dL (8.5-10.1); Chloride 108 mmol/L (98-107); Glucose 98 mg/dL (74-106); Magnesium 2.1 mg/dL (1.8-2.4); Potassium 3.8 mmol/L (3.5-5.1); Sodium 140 mmol/L (136-145); Total Protein 6.7 g/dL (6.4-8.2); Troponin I < 50 ng/L (<or=60)
[2021-09-05 14:11] LABS: D-Dimer 148 ng/mlFEU (<500)
--- NOTE | 2021-09-05 14:25 | DI.VRAD_ITS ---
PROCEDURE INFORMATION: Exam: XR Chest Exam date and time: 09/05/2021 2:03 PM Age: 41 years old Clinical indication: Other: Chest pain TECHNIQUE: Imaging protocol: Radiologic exam of the chest. Views: 2 views. COMPARISON: CR XR PORTABLE CHEST AP 08/10/2018 9:55 AM FINDINGS: Lungs: Unremarkable. No consolidation. Pleural spaces: Unremarkable. No pleural effusion. No pneumothorax. Heart/Mediastinum: Unremarkable. No cardiomegaly. Bones/joints: Unremarkable. IMPRESSION: No acute findings. Dictated and Authenticated by: Latrell Buckner MD. Ordering:LAMBERTO Orr MD
--- NOTE | 2021-09-05 15:15 | RT.EKG_ITS ---
APPROVED REPORT Exam: Resting ECG Reason for Exam: repeat trop Patient Location: E HR:90 bpm ECG Measurements Heart Rate 90 AXIS TX 162 P 53 QRSd 70 QRS 32 QT 369 T 50 QTc 453 Conclusion Sinus rhythm...normal P axis, V-rate 60- 99
[2021-09-05 16:18] LABS: Troponin I < 50 ng/L (<or=60)
== END 2021-09-05 16:52 | disposition home or self-care (01) ==
PROVIDERS: Emergency Provider Physician Assistant; PCP Family Medicine
DX: F41.9 Anxiety disorder, unspecified (principal); F43.9 Reaction to severe stress, unspecified; R07.89 Other chest pain; R00.0 Tachycardia, unspecified; F17.210 Nicotine dependence, cigarettes, uncomplicated; Z32.02 Encounter for pregnancy test, result negative
CPT/HCPCS: 36415; 80053; 81025; 93005; 96361; 96374; 96376; 99284; 71046; 83735; 84484; 85025; 85379; 93010; J3490

== ENCOUNTER 2021-09-10 02:29 | Outpatient (CLI) | payer MEDICARE, MEDICAID, SELFPAY ==
[2021-09-10 14:39] LABS: Abs Immature Grans 0.03 10^3/uL (0.0-0.06); Absolute Basophil Count 0.07 10^3/uL (0.0-0.2); Absolute Eosinophil Count 0.21 10^3/uL (0.0-0.7); Absolute Lymphocyte Count 2.18 10^3/uL (1.2-3.4); Absolute Monocyte Count 0.64 10^3/uL (0.1-0.8); Absolute Neutrophil Count 8.06 10^3/uL (1.2-6.7); Basophils % 0.6; Eosinophils % 1.9; HCT 39.1 % (36.0-46.0); HGB 13.9 g/dL (11.2-15.7); Immature Grans % 0.3; Lymphocytes % 19.5; MCH 32.8 pg (27.0-33.0); MCHC 35.5 % (32.0-36.0); MCV 92 fL (80-95); MPV 8.9 fL (8.0-11.0); Monocytes % 5.7; Platelet Count 382 10^3/uL (130-400); RBC 4.24 10^6/uL (3.93-5.22); RDW 12.2 % (11.7-14.6); RDW-SD 41.1 fL; WBC 11.19 10^3/uL (4.4-10.8)
== END 2021-09-10 02:30 | disposition home or self-care (01) ==
LOC: LBO 02:29
PROVIDERS: PCP Family Medicine; Visit Provider Psychiatry & Neurology Psychiatry
DX: F20.9 Schizophrenia, unspecified (principal); Z79.899 Other long term (current) drug therapy
CPT/HCPCS: 36415; 85025

== ENCOUNTER 2021-09-17 13:21 | Outpatient (REF) | payer MEDICARE, MEDICAID, SELFPAY ==
--- NOTE | 2021-09-17 10:10 | PAPFT_PTH ---
PATIENT: Vimal Pimentel LOC: [facility] U#:[id number] AGE/SX: 41/F ROOM: RE09/17/[address]: Moo Robles : 1980 BED: DIS: 09/17/2021 SPEC #: [id number] RECD: 09/17/21 16:50 STATUS: MALIK REQ #: [id number] YUMIKO: 09/17/21 10:[address]: Moo Robles [facility]PT[facility] Cytology RECD BY: Johana Galicia Tissues: 1 - CX/ENDOCX FOR PAP SMEARS Procedures: HPV DNA PROBE Comments: (HPV TESTING ONLY) (HPV 16 & 18/45)
[2021-09-27 17:35] LABS: HPV High Risk type 16, PCR Negative (Negative); HPV High Risk type 18, PCR Negative (Negative); HPV other High Risk types, PCR Negative (Negative); Specimen Source Vaginal
== END 2021-09-17 13:22 | disposition home or self-care (01) ==
LOC: NCHCN 13:21
PROVIDERS: PCP Family Medicine; Visit Provider Family Medicine
DX: Z11.51 Encounter for screening for human papillomavirus (HPV) (principal); Z01.419 Encounter for gynecological examination (general) (routine) without abnormal findings
CPT/HCPCS: 87624; 88142

== ENCOUNTER 2021-09-23 09:22 | Outpatient (REF) | payer MEDICARE, MEDICAID, SELFPAY | END 2021-09-23 09:23 | disposition home or self-care (01) | LOC: NCHCN 09:22 | PROVIDERS: PCP Family Medicine; Visit Provider Family Medicine ==

== ENCOUNTER 2021-10-07 03:19 | Outpatient (CLI) | payer MEDICARE, MEDICAID, SELFPAY ==
[2021-10-07 12:23] LABS: Abs Immature Grans 0.02 10^3/uL (0.0-0.06); Absolute Basophil Count 0.06 10^3/uL (0.0-0.2); Absolute Eosinophil Count 0.22 10^3/uL (0.0-0.7); Absolute Lymphocyte Count 1.92 10^3/uL (1.2-3.4); Absolute Monocyte Count 0.53 10^3/uL (0.1-0.8); Basophils % 0.7; Eosinophils % 2.6; HCT 41.1 % (36.0-46.0); HGB 14.1 g/dL (11.2-15.7); Immature Grans % 0.2; Lymphocytes % 22.5; MCH 32.6 pg (27.0-33.0); MCHC 34.3 % (32.0-36.0); MCV 95 fL (80-95); MPV 9.1 fL (8.0-11.0); Monocytes % 6.2; Neutrophils % 67.8; Platelet Count 394 10^3/uL (130-400); RBC 4.33 10^6/uL (3.93-5.22); RDW 12.4 % (11.7-14.6); RDW-SD 43.2 fL; WBC 8.55 10^3/uL (4.4-10.8)
== END 2021-10-07 03:20 | disposition home or self-care (01) ==
LOC: LOS 03:22
PROVIDERS: PCP Family Medicine; Visit Provider Psychiatry & Neurology Psychiatry
DX: F20.9 Schizophrenia, unspecified (principal); Z79.899 Other long term (current) drug therapy
CPT/HCPCS: 36415; 85025

== ENCOUNTER 2021-11-25 03:51 | Outpatient (CLI) | payer MEDICARE, MEDICAID, SELFPAY ==
[2021-11-25 12:58] LABS: Abs Immature Grans 0.03 10^3/uL (0.0-0.06); Absolute Basophil Count 0.03 10^3/uL (0.0-0.2); Absolute Eosinophil Count 0.22 10^3/uL (0.0-0.7); Absolute Lymphocyte Count 1.45 10^3/uL (1.2-3.4); Absolute Monocyte Count 0.44 10^3/uL (0.1-0.8); Absolute Neutrophil Count 5.06 10^3/uL (1.2-6.7); Basophils % 0.4; HGB 14.1 g/dL (11.2-15.7); Immature Grans % 0.4; Lymphocytes % 20.1; MCH 32.2 pg (27.0-33.0); MCHC 34.4 % (32.0-36.0); MCV 94 fL (80-95); MPV 9.2 fL (8.0-11.0); Monocytes % 6.1; Platelet Count 392 10^3/uL (130-400); RBC 4.38 10^6/uL (3.93-5.22); RDW 12.2 % (11.7-14.6); RDW-SD 42.7 fL; WBC 7.23 10^3/uL (4.4-10.8)
== END 2021-11-25 03:52 | disposition home or self-care (01) ==
LOC: LOS 03:51
PROVIDERS: PCP Family Medicine; Visit Provider Psychiatry & Neurology Psychiatry
DX: F20.9 Schizophrenia, unspecified (principal); Z79.899 Other long term (current) drug therapy
CPT/HCPCS: 36415; 85025

== ENCOUNTER 2021-12-14 02:57 | Outpatient (CLI) | payer MEDICARE, MEDICAID, SELFPAY ==
[2021-12-14 12:28] LABS: Abs Immature Grans 0.03 10^3/uL (0.0-0.06); Absolute Basophil Count 0.05 10^3/uL (0.0-0.2); Absolute Eosinophil Count 0.34 10^3/uL (0.0-0.7); Absolute Lymphocyte Count 1.81 10^3/uL (1.2-3.4); Absolute Monocyte Count 0.49 10^3/uL (0.1-0.8); Absolute Neutrophil Count 5.65 10^3/uL (1.2-6.7); Basophils % 0.6; Eosinophils % 4.1; HCT 42.4 % (36.0-46.0); HGB 14.6 g/dL (11.2-15.7); Immature Grans % 0.4; Lymphocytes % 21.6; MCH 32.6 pg (27.0-33.0); MCHC 34.4 % (32.0-36.0); MCV 95 fL (80-95); MPV 9.5 fL (8.0-11.0); Monocytes % 5.9; Neutrophils % 67.4; Platelet Count 342 10^3/uL (130-400); RBC 4.48 10^6/uL (3.93-5.22); RDW 12.5 % (11.7-14.6); RDW-SD 43.2 fL; WBC 8.37 10^3/uL (4.4-10.8)
== END 2021-12-14 02:58 | disposition home or self-care (01) ==
LOC: LOS 02:57
PROVIDERS: PCP Family Medicine; Visit Provider Psychiatry & Neurology Psychiatry
DX: F20.9 Schizophrenia, unspecified (principal); Z79.899 Other long term (current) drug therapy
CPT/HCPCS: 36415; 85025

== ENCOUNTER 2021-12-31 01:35 | Outpatient (CLI) | payer MEDICARE, MEDICAID, SELFPAY ==
[2021-12-31 12:46] LABS: Abs Immature Grans 0.03 10^3/uL (0.0-0.06); Absolute Basophil Count 0.05 10^3/uL (0.0-0.2); Absolute Eosinophil Count 0.32 10^3/uL (0.0-0.7); Absolute Lymphocyte Count 1.71 10^3/uL (1.2-3.4); Absolute Neutrophil Count 6.82 10^3/uL (1.2-6.7); Basophils % 0.5; Eosinophils % 3.4; HCT 42.1 % (36.0-46.0); HGB 14.4 g/dL (11.2-15.7); Immature Grans % 0.3; Lymphocytes % 17.9; MCH 32.1 pg (27.0-33.0); MCHC 34.2 % (32.0-36.0); MCV 94 fL (80-95); MPV 9.3 fL (8.0-11.0); Monocytes % 6.3; Neutrophils % 71.6; Platelet Count 369 10^3/uL (130-400); RBC 4.48 10^6/uL (3.93-5.22); RDW 12.4 % (11.7-14.6); RDW-SD 43.1 fL; WBC 9.53 10^3/uL (4.4-10.8)
== END 2021-12-31 01:36 | disposition home or self-care (01) ==
LOC: LOS 01:35
PROVIDERS: PCP Family Medicine; Visit Provider Psychiatry & Neurology Psychiatry
DX: F20.9 Schizophrenia, unspecified (principal); Z79.899 Other long term (current) drug therapy
CPT/HCPCS: 36415; 85025

== ENCOUNTER 2022-02-08 03:29 | Outpatient (CLI) | payer MEDICARE, MEDICAID, SELFPAY ==
[2022-02-08 12:38] LABS: Abs Immature Grans 0.03 10^3/uL (0.0-0.06); Absolute Basophil Count 0.06 10^3/uL (0.0-0.2); Absolute Eosinophil Count 0.44 10^3/uL (0.0-0.7); Absolute Lymphocyte Count 1.81 10^3/uL (1.2-3.4); Absolute Monocyte Count 0.59 10^3/uL (0.1-0.8); Absolute Neutrophil Count 5.43 10^3/uL (1.2-6.7); Basophils % 0.7; Eosinophils % 5.3; HCT 41.3 % (36.0-46.0); HGB 14.2 g/dL (11.2-15.7); Immature Grans % 0.4; Lymphocytes % 21.7; MCH 32.5 pg (27.0-33.0); MCHC 34.4 % (32.0-36.0); MCV 95 fL (80-95); MPV 9.2 fL (8.0-11.0); Monocytes % 7.1; Neutrophils % 64.8; Platelet Count 363 10^3/uL (130-400); RBC 4.37 10^6/uL (3.93-5.22); WBC 8.36 10^3/uL (4.4-10.8)
== END 2022-02-08 03:30 | disposition home or self-care (01) ==
LOC: LOS 03:29
PROVIDERS: PCP Family Medicine; Visit Provider Psychiatry & Neurology Psychiatry
DX: F20.9 Schizophrenia, unspecified (principal); Z79.899 Other long term (current) drug therapy
CPT/HCPCS: 36415; 85025

== ENCOUNTER 2022-03-03 02:30 | Outpatient (CLI) | payer MEDICARE, MEDICAID, SELFPAY ==
[2022-03-03 12:26] LABS: Abs Immature Grans 0.02 10^3/uL (0.0-0.06); Absolute Basophil Count 0.08 10^3/uL (0.0-0.2); Absolute Lymphocyte Count 1.99 10^3/uL (1.2-3.4); Absolute Monocyte Count 0.55 10^3/uL (0.1-0.8); Absolute Neutrophil Count 5.27 10^3/uL (1.2-6.7); Eosinophils % 3.7; HCT 41.9 % (36.0-46.0); HGB 14.5 g/dL (11.2-15.7); Immature Grans % 0.2; Lymphocytes % 24.2; MCH 32.5 pg (27.0-33.0); MCHC 34.6 % (32.0-36.0); MCV 94 fL (80-95); MPV 9.3 fL (8.0-11.0); Monocytes % 6.7; Neutrophils % 64.2; Platelet Count 374 10^3/uL (130-400); RBC 4.46 10^6/uL (3.93-5.22); RDW 12.2 % (11.7-14.6); RDW-SD 42.2 fL; WBC 8.21 10^3/uL (4.4-10.8)
== END 2022-03-03 02:31 | disposition home or self-care (01) ==
LOC: LOS 02:30
PROVIDERS: PCP Family Medicine; Visit Provider Psychiatry & Neurology Psychiatry
DX: F20.9 Schizophrenia, unspecified (principal); Z79.899 Other long term (current) drug therapy
CPT/HCPCS: 36415; 85025

== ENCOUNTER 2022-04-05 03:40 | Outpatient (CLI) | payer MEDICARE, MEDICAID, SELFPAY ==
[2022-04-05 12:34] LABS: Abs Immature Grans 0.03 10^3/uL (0.0-0.06); Absolute Basophil Count 0.05 10^3/uL (0.0-0.2); Absolute Eosinophil Count 0.29 10^3/uL (0.0-0.7); Absolute Lymphocyte Count 1.69 10^3/uL (1.2-3.4); Absolute Monocyte Count 0.44 10^3/uL (0.1-0.8); Absolute Neutrophil Count 5.23 10^3/uL (1.2-6.7); Basophils % 0.6; Eosinophils % 3.8; HCT 41.6 % (36.0-46.0); HGB 14.4 g/dL (11.2-15.7); Immature Grans % 0.4; Lymphocytes % 21.9; MCH 32.5 pg (27.0-33.0); MCHC 34.6 % (32.0-36.0); MCV 94 fL (80-95); MPV 9.1 fL (8.0-11.0); Monocytes % 5.7; Neutrophils % 67.6; Platelet Count 398 10^3/uL (130-400); RBC 4.43 10^6/uL (3.93-5.22); RDW 12.1 % (11.7-14.6); RDW-SD 42.4 fL; WBC 7.73 10^3/uL (4.4-10.8)
== END 2022-04-05 03:41 | disposition home or self-care (01) ==
LOC: LOS 03:40
PROVIDERS: PCP Family Medicine; Visit Provider Psychiatry & Neurology Psychiatry
DX: F25.9 Schizoaffective disorder, unspecified (principal); Z79.899 Other long term (current) drug therapy
CPT/HCPCS: 36415; 85025

== ENCOUNTER 2022-05-04 10:30 | Outpatient (CLI) | payer MEDICARE, MEDICAID, SELFPAY ==
[2022-05-04 13:16] LABS: Abs Immature Grans 0.05 10^3/uL (0.0-0.06); Absolute Basophil Count 0.09 10^3/uL (0.0-0.2); Absolute Eosinophil Count 0.51 10^3/uL (0.0-0.7); Absolute Lymphocyte Count 2.02 10^3/uL (1.2-3.4); Absolute Monocyte Count 0.47 10^3/uL (0.1-0.8); Basophils % 1.2; HCT 40.3 % (36.0-46.0); Immature Grans % 0.7; Lymphocytes % 27.9; MCV 97 fL (80-95); MPV 9.6 fL (8.0-11.0); Monocytes % 6.5; Neutrophils % 56.7; Platelet Count 425 10^3/uL (130-400); RBC 4.14 10^6/uL (3.93-5.22); RDW 12.7 % (11.7-14.6); RDW-SD 45.1 fL; WBC 7.24 10^3/uL (4.4-10.8)
== END 2022-05-04 10:31 | disposition home or self-care (01) ==
LOC: LOS 10:36
PROVIDERS: PCP Family Medicine; Visit Provider Psychiatry & Neurology Psychiatry
DX: F25.9 Schizoaffective disorder, unspecified (principal); Z79.899 Other long term (current) drug therapy
CPT/HCPCS: 36415; 85025

== ENCOUNTER 2022-05-30 02:28 | Outpatient (CLI) | payer MEDICARE, MEDICAID, SELFPAY ==
[2022-05-30 12:40] LABS: Abs Immature Grans 0.03 10^3/uL (0.0-0.06); Absolute Basophil Count 0.07 10^3/uL (0.0-0.2); Absolute Eosinophil Count 0.34 10^3/uL (0.0-0.7); Absolute Lymphocyte Count 1.78 10^3/uL (1.2-3.4); Absolute Monocyte Count 0.51 10^3/uL (0.1-0.8); Absolute Neutrophil Count 5.03 10^3/uL (1.2-6.7); Basophils % 0.9; Eosinophils % 4.4; HCT 41.4 % (36.0-46.0); HGB 14.4 g/dL (11.2-15.7); Immature Grans % 0.4; Lymphocytes % 22.9; MCH 32.9 pg (27.0-33.0); MCHC 34.8 % (32.0-36.0); MCV 95 fL (80-95); MPV 9.6 fL (8.0-11.0); Monocytes % 6.6; Neutrophils % 64.8; Platelet Count 385 10^3/uL (130-400); RBC 4.38 10^6/uL (3.93-5.22); RDW 12.8 % (11.7-14.6); RDW-SD 44.5 fL; WBC 7.76 10^3/uL (4.4-10.8)
== END 2022-05-30 02:29 | disposition home or self-care (01) ==
LOC: LOS 02:29
PROVIDERS: PCP Family Medicine; Visit Provider Psychiatry & Neurology Psychiatry
DX: F20.9 Schizophrenia, unspecified (principal); Z79.899 Other long term (current) drug therapy
CPT/HCPCS: 36415; 85025

== ENCOUNTER 2022-06-27 01:35 | Outpatient (CLI) | payer MEDICARE, MEDICAID, SELFPAY ==
[2022-06-27 12:21] LABS: Abs Immature Grans 0.03 10^3/uL (0.0-0.06); Absolute Eosinophil Count 0.64 10^3/uL (0.0-0.7); Absolute Lymphocyte Count 2.22 10^3/uL (1.2-3.4); Absolute Monocyte Count 0.71 10^3/uL (0.1-0.8); Absolute Neutrophil Count 5.77 10^3/uL (1.2-6.7); Basophils % 1.1; Eosinophils % 6.8; HCT 41.3 % (36.0-46.0); HGB 14.3 g/dL (11.2-15.7); Immature Grans % 0.3; Lymphocytes % 23.4; MCH 32.9 pg (27.0-33.0); MCHC 34.6 % (32.0-36.0); MCV 95 fL (80-95); MPV 9.2 fL (8.0-11.0); Monocytes % 7.5; Neutrophils % 60.9; Platelet Count 390 10^3/uL (130-400); RBC 4.35 10^6/uL (3.93-5.22); RDW 12.4 % (11.7-14.6); RDW-SD 43.2 fL; WBC 9.47 10^3/uL (4.4-10.8)
== END 2022-06-27 01:36 | disposition home or self-care (01) ==
LOC: LOS 01:35
PROVIDERS: PCP Family Medicine; Visit Provider Psychiatry & Neurology Psychiatry
DX: F20.9 Schizophrenia, unspecified (principal); Z79.899 Other long term (current) drug therapy
CPT/HCPCS: 36415; 85025

== ENCOUNTER 2022-07-25 02:18 | Outpatient (CLI) | payer MEDICARE, MEDICAID, SELFPAY ==
[2022-07-25 12:30] LABS: Abs Immature Grans 0.02 10^3/uL (0.0-0.06); Absolute Basophil Count 0.05 10^3/uL (0.0-0.2); Absolute Eosinophil Count 0.47 10^3/uL (0.0-0.7); Absolute Lymphocyte Count 1.45 10^3/uL (1.2-3.4); Absolute Monocyte Count 0.51 10^3/uL (0.1-0.8); Absolute Neutrophil Count 7.12 10^3/uL (1.2-6.7); Basophils % 0.5; Eosinophils % 4.9; HCT 41.8 % (36.0-46.0); HGB 14.3 g/dL (11.2-15.7); Immature Grans % 0.2; Lymphocytes % 15.1; MCH 32.6 pg (27.0-33.0); MCHC 34.2 % (32.0-36.0); MCV 95 fL (80-95); MPV 9.3 fL (8.0-11.0); Monocytes % 5.3; Platelet Count 380 10^3/uL (130-400); RBC 4.38 10^6/uL (3.93-5.22); RDW 12.4 % (11.7-14.6); RDW-SD 43.3 fL; WBC 9.62 10^3/uL (4.4-10.8)
== END 2022-07-25 02:19 | disposition home or self-care (01) ==
LOC: LOS 02:18
PROVIDERS: Counselor Addiction (Substance Use Disorder); PCP Family Medicine; Visit Provider Psychiatry & Neurology Psychiatry
DX: F20.9 Schizophrenia, unspecified (principal); Z79.899 Other long term (current) drug therapy
CPT/HCPCS: 36415; 85025

== ENCOUNTER 2022-08-25 02:22 | Outpatient (CLI) | payer MEDICARE, MEDICAID, SELFPAY ==
[2022-08-25 12:15] LABS: Abs Immature Grans 0.03 10^3/uL (0.0-0.06); Absolute Basophil Count 0.07 10^3/uL (0.0-0.2); Absolute Eosinophil Count 0.73 10^3/uL (0.0-0.7); Absolute Monocyte Count 0.71 10^3/uL (0.1-0.8); Absolute Neutrophil Count 6.36 10^3/uL (1.2-6.7); Basophils % 0.7; Eosinophils % 7.2; HCT 41.4 % (36.0-46.0); HGB 14.2 g/dL (11.2-15.7); Immature Grans % 0.3; Lymphocytes % 22.5; MCH 32.6 pg (27.0-33.0); MCHC 34.3 % (32.0-36.0); MCV 95 fL (80-95); MPV 9.4 fL (8.0-11.0); Neutrophils % 62.3; Platelet Count 394 10^3/uL (130-400); RBC 4.35 10^6/uL (3.93-5.22); RDW 12.6 % (11.7-14.6); RDW-SD 43.7 fL
== END 2022-08-25 02:23 | disposition home or self-care (01) ==
PROVIDERS: PCP Family Medicine; Visit Provider Counselor Addiction (Substance Use Disorder)
DX: F20.9 Schizophrenia, unspecified (principal); Z79.899 Other long term (current) drug therapy
CPT/HCPCS: 36415; 85025

== ENCOUNTER 2022-09-22 02:37 | Outpatient (CLI) | payer MEDICARE, MEDICAID, SELFPAY ==
[2022-09-22 12:25] LABS: Abs Immature Grans 0.02 10^3/uL (0.0-0.06); Absolute Basophil Count 0.05 10^3/uL (0.0-0.2); Absolute Eosinophil Count 0.37 10^3/uL (0.0-0.7); Absolute Monocyte Count 0.46 10^3/uL (0.1-0.8); Absolute Neutrophil Count 5.85 10^3/uL (1.2-6.7); Basophils % 0.6; Eosinophils % 4.3; HGB 14.1 g/dL (11.2-15.7); Immature Grans % 0.2; Lymphocytes % 21.1; MCH 32.6 pg (27.0-33.0); MCHC 34.4 % (32.0-36.0); MCV 95 fL (80-95); MPV 9.2 fL (8.0-11.0); Monocytes % 5.4; Neutrophils % 68.4; Platelet Count 354 10^3/uL (130-400); RBC 4.32 10^6/uL (3.93-5.22); RDW 12.5 % (11.7-14.6); RDW-SD 43.3 fL; WBC 8.55 10^3/uL (4.4-10.8)
== END 2022-09-22 02:38 | disposition home or self-care (01) ==
PROVIDERS: PCP Family Medicine; Visit Provider Counselor Addiction (Substance Use Disorder)
DX: F20.9 Schizophrenia, unspecified (principal); Z79.899 Other long term (current) drug therapy
CPT/HCPCS: 36415; 85025

== ENCOUNTER 2022-10-19 02:52 | Outpatient (CLI) | payer MEDICARE, MEDICAID, SELFPAY ==
[2022-10-19 12:12] LABS: Abs Immature Grans 0.02 10^3/uL (0.0-0.06); Absolute Basophil Count 0.07 10^3/uL (0.0-0.2); Absolute Eosinophil Count 0.34 10^3/uL (0.0-0.7); Absolute Monocyte Count 0.68 10^3/uL (0.1-0.8); Absolute Neutrophil Count 5.85 10^3/uL (1.2-6.7); Basophils % 0.8; Eosinophils % 3.7; HCT 40.1 % (36.0-46.0); HGB 13.7 g/dL (11.2-15.7); Immature Grans % 0.2; Lymphocytes % 24.8; MCH 32.2 pg (27.0-33.0); MCHC 34.2 % (32.0-36.0); MCV 94 fL (80-95); MPV 9.1 fL (8.0-11.0); Monocytes % 7.3; Neutrophils % 63.2; Platelet Count 338 10^3/uL (130-400); RBC 4.26 10^6/uL (3.93-5.22); RDW 12.8 % (11.7-14.6); WBC 9.26 10^3/uL (4.4-10.8)
== END 2022-10-19 02:53 | disposition home or self-care (01) ==
LOC: LOS 02:52
PROVIDERS: PCP Family Medicine; Visit Provider Counselor Addiction (Substance Use Disorder)
DX: F20.9 Schizophrenia, unspecified (principal); Z79.899 Other long term (current) drug therapy
CPT/HCPCS: 36415; 85025

== ENCOUNTER 2022-11-18 14:44 | Outpatient (CLI) | payer MEDICARE, MEDICAID, SELFPAY ==
[2022-11-18 14:08] LABS: Abs Immature Grans 0.04 10^3/uL (0.0-0.06); Absolute Basophil Count 0.06 10^3/uL (0.0-0.2); Absolute Eosinophil Count 0.31 10^3/uL (0.0-0.7); Absolute Monocyte Count 0.61 10^3/uL (0.1-0.8); Absolute Neutrophil Count 5.52 10^3/uL (1.2-6.7); Basophils % 0.7; Eosinophils % 3.5; HCT 42.3 % (36.0-46.0); HGB 14.7 g/dL (11.2-15.7); Immature Grans % 0.5; MCH 32.3 pg (27.0-33.0); MCHC 34.8 % (32.0-36.0); MCV 93 fL (80-95); MPV 8.5 fL (8.0-11.0); Monocytes % 6.9; Neutrophils % 62.4; Platelet Count 351 10^3/uL (130-400); RBC 4.55 10^6/uL (3.93-5.22); RDW 12.2 % (11.7-14.6); RDW-SD 41.9 fL; WBC 8.84 10^3/uL (4.4-10.8)
== END 2022-11-18 14:45 | disposition home or self-care (01) ==
LOC: LBO 14:46
PROVIDERS: PCP Family Medicine; Visit Provider Counselor Addiction (Substance Use Disorder)
DX: F20.9 Schizophrenia, unspecified (principal); Z79.899 Other long term (current) drug therapy
CPT/HCPCS: 36415; 85025

== ENCOUNTER 2022-12-14 01:54 | Outpatient (CLI) | payer MEDICARE, MEDICAID, SELFPAY ==
[2022-12-14 12:22] LABS: Abs Immature Grans 0.01 10^3/uL (0.0-0.06); Absolute Basophil Count 0.06 10^3/uL (0.0-0.2); Absolute Eosinophil Count 0.23 10^3/uL (0.0-0.7); Absolute Lymphocyte Count 1.22 10^3/uL (1.2-3.4); Absolute Monocyte Count 0.37 10^3/uL (0.1-0.8); Absolute Neutrophil Count 3.77 10^3/uL (1.2-6.7); Basophils % 1.1; Eosinophils % 4.1; HCT 40.4 % (36.0-46.0); Immature Grans % 0.2; Lymphocytes % 21.6; MCH 32.2 pg (27.0-33.0); MCHC 34.7 % (32.0-36.0); MCV 93 fL (80-95); MPV 9.1 fL (8.0-11.0); Monocytes % 6.5; Neutrophils % 66.5; Platelet Count 363 10^3/uL (130-400); RBC 4.35 10^6/uL (3.93-5.22); RDW 12.2 % (11.7-14.6); RDW-SD 42.1 fL; WBC 5.66 10^3/uL (4.4-10.8)
== END 2022-12-14 01:55 | disposition home or self-care (01) ==
LOC: LOS 01:54
PROVIDERS: PCP Family Medicine; Visit Provider Counselor Addiction (Substance Use Disorder)
DX: F20.9 Schizophrenia, unspecified (principal); Z79.899 Other long term (current) drug therapy
CPT/HCPCS: 36415; 85025

== ENCOUNTER 2023-01-16 20:53 | Outpatient (CLI) | payer MEDICARE, MEDICAID, SELFPAY ==
[2023-01-16 12:19] LABS: Abs Immature Grans 0.04 10^3/uL (0.0-0.06); Absolute Basophil Count 0.08 10^3/uL (0.0-0.2); Absolute Eosinophil Count 0.14 10^3/uL (0.0-0.7); Absolute Lymphocyte Count 1.86 10^3/uL (1.2-3.4); Absolute Monocyte Count 0.53 10^3/uL (0.1-0.8); Absolute Neutrophil Count 7.05 10^3/uL (1.2-6.7); Basophils % 0.8; Eosinophils % 1.4; Immature Grans % 0.4; Lymphocytes % 19.2; MCH 32.3 pg (27.0-33.0); MCHC 34.9 % (32.0-36.0); MCV 93 fL (80-95); MPV 9.1 fL (8.0-11.0); Monocytes % 5.5; Neutrophils % 72.7; Platelet Count 409 10^3/uL (130-400); RBC 4.65 10^6/uL (3.93-5.22); RDW 12.2 % (11.7-14.6); RDW-SD 41.7 fL
== END 2023-01-16 20:54 | disposition home or self-care (01) ==
LOC: LBO 20:54
PROVIDERS: PCP Family Medicine; Visit Provider Counselor Addiction (Substance Use Disorder)
DX: F20.9 Schizophrenia, unspecified (principal); Z79.899 Other long term (current) drug therapy
CPT/HCPCS: 36415; 85025

== ENCOUNTER 2023-02-08 02:46 | Outpatient (CLI) | payer MEDICARE, MEDICAID, SELFPAY ==
[2023-02-08 12:49] LABS: Abs Immature Grans 0.02 10^3/uL (0.0-0.06); Absolute Basophil Count 0.06 10^3/uL (0.0-0.2); Absolute Eosinophil Count 0.38 10^3/uL (0.0-0.7); Absolute Monocyte Count 0.49 10^3/uL (0.1-0.8); Absolute Neutrophil Count 4.91 10^3/uL (1.2-6.7); Basophils % 0.8; HCT 40.9 % (36.0-46.0); HGB 14.1 g/dL (11.2-15.7); Immature Grans % 0.3; Lymphocytes % 22.5; MCH 32.3 pg (27.0-33.0); MCHC 34.5 % (32.0-36.0); MCV 94 fL (80-95); MPV 9.1 fL (8.0-11.0); Monocytes % 6.5; Neutrophils % 64.9; Platelet Count 368 10^3/uL (130-400); RBC 4.37 10^6/uL (3.93-5.22); RDW 12.7 % (11.7-14.6); RDW-SD 43.9 fL; WBC 7.56 10^3/uL (4.4-10.8)
== END 2023-02-08 02:47 | disposition home or self-care (01) ==
LOC: LOS 02:46
PROVIDERS: PCP Family Medicine; Visit Provider Counselor Addiction (Substance Use Disorder)
DX: F20.9 Schizophrenia, unspecified (principal); Z79.899 Other long term (current) drug therapy
CPT/HCPCS: 36415; 85025

== ENCOUNTER 2023-03-10 01:20 | Outpatient (CLI) | payer MEDICARE, MEDICAID, SELFPAY ==
[2023-03-10 12:13] LABS: Abs Immature Grans 0.02 10^3/uL (0.0-0.06); Absolute Basophil Count 0.05 10^3/uL (0.0-0.2); Absolute Eosinophil Count 0.35 10^3/uL (0.0-0.7); Absolute Lymphocyte Count 1.66 10^3/uL (1.2-3.4); Absolute Monocyte Count 0.66 10^3/uL (0.1-0.8); Absolute Neutrophil Count 5.28 10^3/uL (1.2-6.7); Basophils % 0.6; Eosinophils % 4.4; HGB 14.1 g/dL (11.2-15.7); Immature Grans % 0.2; Lymphocytes % 20.7; MCH 31.5 pg (27.0-33.0); MCHC 34.4 % (32.0-36.0); MCV 92 fL (80-95); MPV 9.4 fL (8.0-11.0); Monocytes % 8.2; Neutrophils % 65.9; Platelet Count 353 10^3/uL (130-400); RBC 4.47 10^6/uL (3.93-5.22); RDW 12.3 % (11.7-14.6); WBC 8.02 10^3/uL (4.4-10.8)
== END 2023-03-10 01:21 | disposition home or self-care (01) ==
LOC: LOS 01:20
PROVIDERS: PCP Family Medicine; Visit Provider Counselor Addiction (Substance Use Disorder)
DX: F20.9 Schizophrenia, unspecified (principal); Z79.899 Other long term (current) drug therapy
CPT/HCPCS: 36415; 85025

== ENCOUNTER 2023-04-03 03:51 | Outpatient (CLI) | payer MEDICARE, MEDICAID, SELFPAY ==
[2023-04-03 12:23] LABS: Abs Immature Grans 0.04 10^3/uL (0.0-0.06); Absolute Basophil Count 0.06 10^3/uL (0.0-0.2); Absolute Eosinophil Count 0.42 10^3/uL (0.0-0.7); Absolute Lymphocyte Count 1.93 10^3/uL (1.2-3.4); Absolute Neutrophil Count 6.47 10^3/uL (1.2-6.7); Basophils % 0.6; Eosinophils % 4.4; HCT 41.4 % (36.0-46.0); HGB 14.3 g/dL (11.2-15.7); Immature Grans % 0.4; Lymphocytes % 20.3; MCH 31.9 pg (27.0-33.0); MCHC 34.5 % (32.0-36.0); MCV 92 fL (80-95); MPV 9.3 fL (8.0-11.0); Monocytes % 6.3; Platelet Count 367 10^3/uL (130-400); RBC 4.48 10^6/uL (3.93-5.22); RDW 12.4 % (11.7-14.6); RDW-SD 42.6 fL; WBC 9.52 10^3/uL (4.4-10.8)
== END 2023-04-03 03:52 | disposition home or self-care (01) ==
LOC: LOS 03:52
PROVIDERS: PCP Family Medicine; Visit Provider Counselor Addiction (Substance Use Disorder)
DX: F20.9 Schizophrenia, unspecified (principal); Z79.899 Other long term (current) drug therapy
CPT/HCPCS: 36415; 85025

== ENCOUNTER 2023-04-28 01:01 | Outpatient (CLI) | payer MEDICARE, MEDICAID, SELFPAY ==
[2023-04-28 12:19] LABS: Abs Immature Grans 0.02 10^3/uL (0.0-0.06); Absolute Basophil Count 0.07 10^3/uL (0.0-0.2); Absolute Eosinophil Count 0.49 10^3/uL (0.0-0.7); Absolute Lymphocyte Count 1.57 10^3/uL (1.2-3.4); Absolute Monocyte Count 0.43 10^3/uL (0.1-0.8); Absolute Neutrophil Count 4.72 10^3/uL (1.2-6.7); Eosinophils % 6.7; HCT 41.4 % (36.0-46.0); HGB 14.2 g/dL (11.2-15.7); Immature Grans % 0.3; Lymphocytes % 21.5; MCHC 34.3 % (32.0-36.0); MCV 93 fL (80-95); MPV 8.8 fL (8.0-11.0); Monocytes % 5.9; Neutrophils % 64.6; Platelet Count 428 10^3/uL (130-400); RBC 4.44 10^6/uL (3.93-5.22); RDW 13.2 % (11.7-14.6); RDW-SD 45.1 fL
== END 2023-04-28 01:02 | disposition home or self-care (01) ==
LOC: LOS 01:01
PROVIDERS: PCP Family Medicine; Visit Provider Counselor Addiction (Substance Use Disorder)
DX: F20.9 Schizophrenia, unspecified (principal); Z79.899 Other long term (current) drug therapy
CPT/HCPCS: 36415; 85025

== ENCOUNTER 2023-05-26 01:47 | Outpatient (CLI) | payer MEDICARE, MEDICAID, SELFPAY ==
[2023-05-26 12:22] LABS: Abs Immature Grans 0.03 10^3/uL (0.0-0.06); Absolute Basophil Count 0.05 10^3/uL (0.0-0.2); Absolute Lymphocyte Count 1.35 10^3/uL (1.2-3.4); Absolute Monocyte Count 0.43 10^3/uL (0.1-0.8); Absolute Neutrophil Count 4.63 10^3/uL (1.2-6.7); Basophils % 0.7; Eosinophils % 4.4; HCT 40.4 % (36.0-46.0); HGB 13.8 g/dL (11.2-15.7); Immature Grans % 0.4; Lymphocytes % 19.9; MCH 32.1 pg (27.0-33.0); MCHC 34.2 % (32.0-36.0); MCV 94 fL (80-95); MPV 8.9 fL (8.0-11.0); Monocytes % 6.3; Neutrophils % 68.3; Platelet Count 368 10^3/uL (130-400); RDW 12.6 % (11.7-14.6); RDW-SD 43.3 fL; WBC 6.79 10^3/uL (4.4-10.8)
== END 2023-05-26 01:48 | disposition home or self-care (01) ==
PROVIDERS: PCP Family Medicine; Visit Provider Counselor Addiction (Substance Use Disorder)
DX: F20.9 Schizophrenia, unspecified (principal); Z79.899 Other long term (current) drug therapy
CPT/HCPCS: 36415; 85025

== ENCOUNTER 2023-06-28 05:10 | Outpatient (CLI) | payer MEDICARE, MEDICAID, SELFPAY ==
[2023-06-28 12:48] LABS: Abs Immature Grans 0.01 10^3/uL (0.0-0.06); Absolute Basophil Count 0.06 10^3/uL (0.0-0.2); Absolute Eosinophil Count 0.43 10^3/uL (0.0-0.7); Absolute Lymphocyte Count 1.64 10^3/uL (1.2-3.4); Absolute Monocyte Count 0.41 10^3/uL (0.1-0.8); Absolute Neutrophil Count 3.38 10^3/uL (1.2-6.7); Eosinophils % 7.3; HCT 41.6 % (36.0-46.0); HGB 14.1 g/dL (11.2-15.7); Immature Grans % 0.2; Lymphocytes % 27.7; MCH 32.6 pg (27.0-33.0); MCHC 33.9 % (32.0-36.0); MCV 96 fL (80-95); MPV 9.1 fL (8.0-11.0); Monocytes % 6.9; Neutrophils % 56.9; Platelet Count 360 10^3/uL (130-400); RBC 4.32 10^6/uL (3.93-5.22); RDW 12.5 % (11.7-14.6); RDW-SD 45.1 fL; WBC 5.93 10^3/uL (4.4-10.8)
== END 2023-06-28 05:11 | disposition home or self-care (01) ==
LOC: LOS 05:10
PROVIDERS: PCP Family Medicine; Visit Provider Counselor Addiction (Substance Use Disorder)
DX: F20.9 Schizophrenia, unspecified (principal); Z79.899 Other long term (current) drug therapy
CPT/HCPCS: 36415; 85025

== ENCOUNTER 2023-07-26 05:02 | Outpatient (CLI) | payer MEDICARE, MEDICAID, SELFPAY ==
[2023-07-26 13:17] LABS: Abs Immature Grans 0.02 10^3/uL (0.0-0.06); Absolute Basophil Count 0.07 10^3/uL (0.0-0.2); Absolute Lymphocyte Count 1.38 10^3/uL (1.2-3.4); Absolute Neutrophil Count 6.04 10^3/uL (1.2-6.7); Basophils % 0.8 %; Eosinophils % 4.6 %; HCT 41.2 % (36.0-46.0); HGB 14.4 g/dL (11.2-15.7); Immature Grans % 0.2 %; MCH 32.7 pg (27.0-33.0); MCV 93 fL (80-95); MPV 9.2 fL (8.0-11.0); Monocytes % 8.1 %; Neutrophils % 70.3 %; Platelet Count 358 10^3/uL (130-400); RBC 4.41 10^6/uL (3.93-5.22); RDW 12.5 % (11.7-14.6); RDW-SD 42.5 fL; WBC 8.61 10^3/uL (4.4-10.8)
== END 2023-07-26 05:03 | disposition home or self-care (01) ==
PROVIDERS: PCP Family Medicine; Visit Provider Nurse Practitioner Psychiatric/Mental Health
DX: Z79.899 Other long term (current) drug therapy (principal)
CPT/HCPCS: 36415; 85025

== ENCOUNTER 2023-08-21 06:27 | Outpatient (CLI) | payer MEDICARE, MEDICAID, SELFPAY ==
[2023-08-21 15:24] LABS: Abs Immature Grans 0.07 10^3/uL (0.0-0.06); Absolute Basophil Count 0.06 10^3/uL (0.0-0.2); Absolute Eosinophil Count 0.44 10^3/uL (0.0-0.7); Absolute Lymphocyte Count 2.22 10^3/uL (1.2-3.4); Absolute Monocyte Count 0.65 10^3/uL (0.1-0.8); Absolute Neutrophil Count 7.33 10^3/uL (1.2-6.7); Basophils % 0.6 %; Eosinophils % 4.1 %; HCT 42.2 % (36.0-46.0); HGB 14.4 g/dL (11.2-15.7); Immature Grans % 0.6 %; Lymphocytes % 20.6 %; MCH 31.7 pg (27.0-33.0); MCHC 34.1 % (32.0-36.0); MCV 93 fL (80-95); MPV 8.7 fL (8.0-11.0); Neutrophils % 68.1 %; Platelet Count 349 10^3/uL (130-400); RBC 4.54 10^6/uL (3.93-5.22); RDW 12.5 % (11.7-14.6); RDW-SD 42.3 fL; WBC 10.77 10^3/uL (4.4-10.8)
== END 2023-08-21 06:28 | disposition home or self-care (01) ==
LOC: LBO 06:28
PROVIDERS: PCP Family Medicine; Visit Provider Nurse Practitioner Psychiatric/Mental Health
DX: Z79.899 Other long term (current) drug therapy (principal)
CPT/HCPCS: 36415; 85025

== ENCOUNTER 2023-09-15 02:07 | Outpatient (CLI) | payer MEDICARE, MEDICAID, SELFPAY ==
[2023-09-15 16:25] LABS: HGB 14.5 g/dL (11.2-15.7); MCHC 34.5 % (32.0-36.0); MCV 93 fL (80-95); MPV 8.7 fL (8.0-11.0); Platelet Count 244 10^3/uL (130-400); RBC 4.53 10^6/uL (3.93-5.22); RDW 13.2 % (11.7-14.6); RDW-SD 44.3 fL; WBC 7.97 10^3/uL (4.4-10.8)
[2023-09-15 16:57] LABS: Absolute Eosinophil Count 0.16 10^3/uL (0.0-0.7); Absolute Neutrophil Count 1.51 10^3/uL (1.2-6.7); Atypical Lymphocytes % 26 %; Diff Comment Manual Differential; RBC Morphology Normal
== END 2023-09-15 02:08 | disposition home or self-care (01) ==
PROVIDERS: PCP Family Medicine; Visit Provider Nurse Practitioner Psychiatric/Mental Health
DX: F25.1 Schizoaffective disorder, depressive type (principal); Z79.899 Other long term (current) drug therapy
CPT/HCPCS: 36415; 85025

== ENCOUNTER 2023-10-12 01:55 | Outpatient (CLI) | payer MEDICARE, MEDICAID, SELFPAY ==
[2023-10-12 12:59] LABS: Abs Immature Grans 0.01 10^3/uL (0.0-0.06); Absolute Basophil Count 0.06 10^3/uL (0.0-0.2); Absolute Eosinophil Count 0.46 10^3/uL (0.0-0.7); Absolute Lymphocyte Count 2.33 10^3/uL (1.2-3.4); Absolute Monocyte Count 0.52 10^3/uL (0.1-0.8); Absolute Neutrophil Count 4.05 10^3/uL (1.2-6.7); Basophils % 0.8 %; Eosinophils % 6.2 %; HCT 42.6 % (36.0-46.0); HGB 14.8 g/dL (11.2-15.7); Immature Grans % 0.1 %; Lymphocytes % 31.4 %; MCH 32.2 pg (27.0-33.0); MCHC 34.7 % (32.0-36.0); MCV 93 fL (80-95); MPV 8.6 fL (8.0-11.0); Neutrophils % 54.5 %; Platelet Count 266 10^3/uL (130-400); RBC 4.59 10^6/uL (3.93-5.22); RDW 12.2 % (11.7-14.6); WBC 7.43 10^3/uL (4.4-10.8)
== END 2023-10-12 01:56 | disposition home or self-care (01) ==
LOC: LBO 01:55
PROVIDERS: PCP Family Medicine; Visit Provider Nurse Practitioner Psychiatric/Mental Health
DX: F25.1 Schizoaffective disorder, depressive type (principal)
CPT/HCPCS: 36415; 85025

== ENCOUNTER 2023-11-14 02:37 | Outpatient (CLI) | payer MEDICARE, MEDICAID, SELFPAY ==
[2023-11-14 14:22] LABS: Abs Immature Grans 0.03 10^3/uL (0.0-0.06); Absolute Basophil Count 0.05 10^3/uL (0.0-0.2); Absolute Eosinophil Count 0.43 10^3/uL (0.0-0.7); Absolute Lymphocyte Count 1.97 10^3/uL (1.2-3.4); Absolute Monocyte Count 0.47 10^3/uL (0.1-0.8); Absolute Neutrophil Count 5.54 10^3/uL (1.2-6.7); Basophils % 0.6 %; Eosinophils % 5.1 %; HCT 39.9 % (36.0-46.0); Immature Grans % 0.4 %; Lymphocytes % 23.2 %; MCH 32.3 pg (27.0-33.0); MCHC 35.1 % (32.0-36.0); MCV 92 fL (80-95); MPV 8.9 fL (8.0-11.0); Monocytes % 5.5 %; Neutrophils % 65.2 %; Platelet Count 281 10^3/uL (130-400); RBC 4.33 10^6/uL (3.93-5.22); RDW 12.1 % (11.7-14.6); RDW-SD 41.1 fL; WBC 8.49 10^3/uL (4.4-10.8)
== END 2023-11-14 02:38 | disposition home or self-care (01) ==
LOC: LBO 02:37
PROVIDERS: PCP Family Medicine; Visit Provider Nurse Practitioner Psychiatric/Mental Health
DX: Z79.899 Other long term (current) drug therapy (principal); F25.1 Schizoaffective disorder, depressive type
CPT/HCPCS: 36415; 85025

== ENCOUNTER 2023-12-08 03:06 | Outpatient (CLI) | payer MEDICARE, MEDICAID, SELFPAY ==
[2023-12-08 14:54] LABS: Abs Immature Grans 0.03 10^3/uL (0.0-0.06); Absolute Basophil Count 0.06 10^3/uL (0.0-0.2); Absolute Monocyte Count 0.68 10^3/uL (0.1-0.8); Absolute Neutrophil Count 4.35 10^3/uL (1.2-6.7); Basophils % 0.8 %; Eosinophils % 5.1 %; HCT 40.7 % (36.0-46.0); HGB 14.4 g/dL (11.2-15.7); Immature Grans % 0.4 %; Lymphocytes % 30.3 %; MCH 32.4 pg (27.0-33.0); MCHC 35.4 % (32.0-36.0); MCV 92 fL (80-95); MPV 8.7 fL (8.0-11.0); Monocytes % 8.6 %; Neutrophils % 54.8 %; Platelet Count 387 10^3/uL (130-400); RBC 4.45 10^6/uL (3.93-5.22); RDW 12.1 % (11.7-14.6); RDW-SD 40.4 fL; WBC 7.92 10^3/uL (4.4-10.8)
== END 2023-12-08 03:07 | disposition home or self-care (01) ==
PROVIDERS: PCP Family Medicine; Visit Provider Nurse Practitioner Psychiatric/Mental Health
DX: F25.1 Schizoaffective disorder, depressive type (principal); Z79.899 Other long term (current) drug therapy
CPT/HCPCS: 85025

== ENCOUNTER 2024-01-10 03:28 | Outpatient (CLI) | payer MEDICARE, MEDICAID, SELFPAY ==
[2024-01-10 10:59] LABS: Abs Immature Grans 0.05 10^3/uL (0.0-0.06); Absolute Basophil Count 0.06 10^3/uL (0.0-0.2); Absolute Eosinophil Count 0.46 10^3/uL (0.0-0.7); Absolute Lymphocyte Count 1.83 10^3/uL (1.2-3.4); Absolute Monocyte Count 0.57 10^3/uL (0.1-0.8); Absolute Neutrophil Count 5.05 10^3/uL (1.2-6.7); Basophils % 0.7 %; Eosinophils % 5.7 %; HCT 40.4 % (36.0-46.0); HGB 14.3 g/dL (11.2-15.7); Immature Grans % 0.6 %; Lymphocytes % 22.8 %; MCH 32.6 pg (27.0-33.0); MCHC 35.4 % (32.0-36.0); MCV 92 fL (80-95); MPV 8.6 fL (8.0-11.0); Monocytes % 7.1 %; Neutrophils % 63.1 %; Platelet Count 330 10^3/uL (130-400); RBC 4.38 10^6/uL (3.93-5.22); RDW 12.6 % (11.7-14.6); RDW-SD 42.5 fL; WBC 8.02 10^3/uL (4.4-10.8)
== END 2024-01-10 03:29 | disposition home or self-care (01) ==
PROVIDERS: PCP Family Medicine; Visit Provider Nurse Practitioner Psychiatric/Mental Health
DX: F25.1 Schizoaffective disorder, depressive type (principal)
CPT/HCPCS: 85025

== ENCOUNTER 2024-02-07 02:43 | Outpatient (CLI) | payer MEDICARE, MEDICAID, SELFPAY ==
[2024-02-07 14:09] LABS: Abs Immature Grans 0.03 10^3/uL (0.0-0.06); Absolute Basophil Count 0.06 10^3/uL (0.0-0.2); Absolute Eosinophil Count 0.46 10^3/uL (0.0-0.7); Absolute Monocyte Count 0.54 10^3/uL (0.1-0.8); Absolute Neutrophil Count 5.36 10^3/uL (1.2-6.7); Basophils % 0.7 %; Eosinophils % 5.4 %; HCT 42.3 % (36.0-46.0); HGB 14.7 g/dL (11.2-15.7); Immature Grans % 0.4 %; Lymphocytes % 24.6 %; MCH 32.9 pg (27.0-33.0); MCHC 34.8 % (32.0-36.0); MCV 95 fL (80-95); MPV 8.7 fL (8.0-11.0); Monocytes % 6.3 %; Neutrophils % 62.6 %; Platelet Count 332 10^3/uL (130-400); RBC 4.47 10^6/uL (3.93-5.22); RDW 12.4 % (11.7-14.6); RDW-SD 43.3 fL; WBC 8.55 10^3/uL (4.4-10.8)
== END 2024-02-07 02:44 | disposition home or self-care (01) ==
LOC: LBO 02:43
PROVIDERS: PCP Family Medicine; Visit Provider Nurse Practitioner Psychiatric/Mental Health
DX: Z79.899 Other long term (current) drug therapy (principal); F25.1 Schizoaffective disorder, depressive type
CPT/HCPCS: 36415; 85025

== ENCOUNTER 2024-03-07 03:56 | Outpatient (CLI) | payer MEDICARE, MEDICAID, SELFPAY ==
[2024-03-07 12:36] LABS: Abs Immature Grans 0.04 10^3/uL (0.0-0.06); Absolute Basophil Count 0.09 10^3/uL (0.0-0.2); Absolute Eosinophil Count 0.35 10^3/uL (0.0-0.7); Absolute Lymphocyte Count 1.59 10^3/uL (1.2-3.4); Absolute Monocyte Count 0.48 10^3/uL (0.1-0.8); Absolute Neutrophil Count 4.38 10^3/uL (1.2-6.7); Basophils % 1.3 %; Eosinophils % 5.1 %; HCT 42.1 % (36.0-46.0); HGB 14.9 g/dL (11.2-15.7); Immature Grans % 0.6 %; Lymphocytes % 22.9 %; MCHC 35.4 % (32.0-36.0); MCV 93 fL (80-95); MPV 8.9 fL (8.0-11.0); Monocytes % 6.9 %; Neutrophils % 63.2 %; Platelet Count 395 10^3/uL (130-400); RBC 4.52 10^6/uL (3.93-5.22); RDW 12.1 % (11.7-14.6); RDW-SD 41.6 fL; WBC 6.93 10^3/uL (4.4-10.8)
== END 2024-03-07 03:57 | disposition home or self-care (01) ==
PROVIDERS: PCP Family Medicine; Visit Provider Nurse Practitioner Psychiatric/Mental Health
DX: Z79.899 Other long term (current) drug therapy (principal); F25.1 Schizoaffective disorder, depressive type
CPT/HCPCS: 36415; 85025

== ENCOUNTER 2024-04-08 02:21 | Outpatient (CLI) | payer MEDICARE, MEDICAID, SELFPAY ==
[2024-04-08 15:25] LABS: Abs Immature Grans 0.02 10^3/uL (0.0-0.06); Absolute Basophil Count 0.06 10^3/uL (0.0-0.2); Absolute Eosinophil Count 0.34 10^3/uL (0.0-0.7); Absolute Monocyte Count 0.69 10^3/uL (0.1-0.8); Absolute Neutrophil Count 4.22 10^3/uL (1.2-6.7); Basophils % 0.8 %; Eosinophils % 4.5 %; HGB 14.6 g/dL (11.2-15.7); Immature Grans % 0.3 %; Lymphocytes % 30.1 %; MCH 32.6 pg (27.0-33.0); MCHC 34.8 % (32.0-36.0); MCV 94 fL (80-95); MPV 8.7 fL (8.0-11.0); Neutrophils % 55.3 %; Platelet Count 359 10^3/uL (130-400); RBC 4.48 10^6/uL (3.93-5.22); RDW 11.6 % (11.7-14.6); RDW-SD 39.8 fL; WBC 7.63 10^3/uL (4.4-10.8)
[2024-04-08 16:01] LABS: Hemoglobin A1C 5.5 % (<5.7)
[2024-04-08 16:35] LABS: Calculated LDL 80 mg/dL (<100); Cholesterol 170 mg/dL (<200); HDL Cholesterol 38 mg/dL (40-60); Triglyceride 263 mg/dL (<150)
== END 2024-04-08 02:22 | disposition home or self-care (01) ==
PROVIDERS: Nurse Practitioner Psychiatric/Mental Health; PCP Family Medicine; Visit Provider Nurse Practitioner Psychiatric/Mental Health
DX: Z79.899 Other long term (current) drug therapy (principal); F25.1 Schizoaffective disorder, depressive type
CPT/HCPCS: 36415; 80061; 83036; 85025

== ENCOUNTER 2024-05-07 03:00 | Outpatient (CLI) | payer MEDICARE, MEDICAID, SELFPAY ==
[2024-05-07 12:29] LABS: Abs Immature Grans 0.04 10^3/uL (0.0-0.06); Absolute Basophil Count 0.07 10^3/uL (0.0-0.2); Absolute Eosinophil Count 0.38 10^3/uL (0.0-0.7); Absolute Lymphocyte Count 1.47 10^3/uL (1.2-3.4); Absolute Monocyte Count 0.63 10^3/uL (0.1-0.8); Absolute Neutrophil Count 5.16 10^3/uL (1.2-6.7); Basophils % 0.9 %; Eosinophils % 4.9 %; HCT 42.5 % (36.0-46.0); HGB 14.1 g/dL (11.2-15.7); Immature Grans % 0.5 %; MCH 32.3 pg (27.0-33.0); MCHC 33.2 % (32.0-36.0); MCV 98 fL (80-95); MPV 9.2 fL (8.0-11.0); Monocytes % 8.1 %; Neutrophils % 66.6 %; Platelet Count 359 10^3/uL (130-400); RBC 4.36 10^6/uL (3.93-5.22); RDW 12.5 % (11.7-14.6); RDW-SD 44.9 fL; WBC 7.75 10^3/uL (4.4-10.8)
== END 2024-05-07 03:01 | disposition home or self-care (01) ==
PROVIDERS: PCP Family Medicine; Visit Provider Nurse Practitioner Psychiatric/Mental Health
DX: Z79.899 Other long term (current) drug therapy (principal); F25.1 Schizoaffective disorder, depressive type
CPT/HCPCS: 36415; 85025

== ENCOUNTER 2024-06-04 02:11 | Outpatient (CLI) | payer MEDICARE, MEDICAID, SELFPAY ==
[2024-06-04 12:27] LABS: Abs Immature Grans 0.06 10^3/uL (0.0-0.06); Absolute Basophil Count 0.06 10^3/uL (0.0-0.2); Absolute Eosinophil Count 0.43 10^3/uL (0.0-0.7); Absolute Lymphocyte Count 1.78 10^3/uL (1.2-3.4); Absolute Monocyte Count 0.66 10^3/uL (0.1-0.8); Absolute Neutrophil Count 7.54 10^3/uL (1.2-6.7); Basophils % 0.6 %; Eosinophils % 4.1 %; HGB 14.4 g/dL (11.2-15.7); Immature Grans % 0.6 %; Lymphocytes % 16.9 %; MCH 32.1 pg (27.0-33.0); MCHC 34.3 % (32.0-36.0); MCV 94 fL (80-95); MPV 8.9 fL (8.0-11.0); Monocytes % 6.3 %; Neutrophils % 71.5 %; Platelet Count 358 10^3/uL (130-400); RBC 4.48 10^6/uL (3.93-5.22); RDW 11.9 % (11.7-14.6); RDW-SD 41.1 fL; WBC 10.53 10^3/uL (4.4-10.8)
== END 2024-06-04 02:12 | disposition home or self-care (01) ==
LOC: LOS 02:12
PROVIDERS: Nurse Practitioner Psychiatric/Mental Health; PCP Family Medicine; Visit Provider Family Medicine
DX: F25.1 Schizoaffective disorder, depressive type (principal); Z79.899 Other long term (current) drug therapy
CPT/HCPCS: 36415; 85025

== ENCOUNTER 2024-07-03 01:41 | Outpatient (CLI) | payer MEDICARE, MEDICAID, SELFPAY ==
[2024-07-03 12:11] LABS: Abs Immature Grans 0.03 10^3/uL (0.0-0.06); Absolute Basophil Count 0.08 10^3/uL (0.0-0.2); Absolute Eosinophil Count 0.44 10^3/uL (0.0-0.7); Absolute Lymphocyte Count 1.98 10^3/uL (1.2-3.4); Absolute Monocyte Count 0.71 10^3/uL (0.1-0.8); Basophils % 0.9 %; Eosinophils % 4.8 %; HCT 42.4 % (36.0-46.0); HGB 14.4 g/dL (11.2-15.7); Immature Grans % 0.3 %; Lymphocytes % 21.4 %; MCH 32.4 pg (27.0-33.0); MCV 96 fL (80-95); MPV 8.9 fL (8.0-11.0); Monocytes % 7.7 %; Neutrophils % 64.9 %; Platelet Count 333 10^3/uL (130-400); RBC 4.44 10^6/uL (3.93-5.22); RDW 12.2 % (11.7-14.6); RDW-SD 42.5 fL; WBC 9.24 10^3/uL (4.4-10.8)
== END 2024-07-03 01:42 | disposition home or self-care (01) ==
PROVIDERS: PCP Family Medicine; Visit Provider Nurse Practitioner Psychiatric/Mental Health
DX: F25.1 Schizoaffective disorder, depressive type (principal)
CPT/HCPCS: 36415; 85025

== ENCOUNTER 2024-08-01 03:16 | Outpatient (CLI) | payer MEDICARE, MEDICAID, SELFPAY ==
[2024-08-01 12:07] LABS: Abs Immature Grans 0.04 10^3/uL (0.0-0.06); Absolute Basophil Count 0.07 10^3/uL (0.0-0.2); Absolute Eosinophil Count 0.49 10^3/uL (0.0-0.7); Absolute Lymphocyte Count 2.05 10^3/uL (1.2-3.4); Absolute Neutrophil Count 7.74 10^3/uL (1.2-6.7); Basophils % 0.6 %; Eosinophils % 4.4 %; HCT 43.5 % (36.0-46.0); HGB 14.5 g/dL (11.2-15.7); Immature Grans % 0.4 %; Lymphocytes % 18.5 %; MCH 31.5 pg (27.0-33.0); MCHC 33.3 % (32.0-36.0); MCV 94 fL (80-95); Monocytes % 6.3 %; Neutrophils % 69.8 %; Platelet Count 356 10^3/uL (130-400); RBC 4.61 10^6/uL (3.93-5.22); RDW 12.1 % (11.7-14.6); RDW-SD 42.2 fL; WBC 11.09 10^3/uL (4.4-10.8)
== END 2024-08-01 03:17 | disposition home or self-care (01) ==
LOC: LOS 03:16
PROVIDERS: PCP Family Medicine; Visit Provider Nurse Practitioner Psychiatric/Mental Health
DX: F25.1 Schizoaffective disorder, depressive type (principal); Z79.899 Other long term (current) drug therapy
CPT/HCPCS: 36415; 85025

== ENCOUNTER 2024-08-09 10:19 | Emergency (ER) | payer MEDICARE, MEDICAID, SELFPAY ==
[2024-08-09] VITALS (24 sets, daily range): BP systolic 100–124; BP diastolic 60–78; PULSE 67–101; RESP 12–38; TEMP 36.7; O2SAT 96–98
--- NOTE | 2024-08-09 10:15 | RT.EKG_ITS ---
APPROVED REPORT Exam: Resting ECG Reason for Exam: chest pain Patient Location: E HR:94 bpm ECG Measurements Heart Rate 94 AXIS SD 144 P 52 QRSd 81 QRS 28 QT 369 T 31 QTc 463 Conclusion Sinus rhythm...normal P axis, V-rate 60- 99
--- NOTE | 2024-08-09 10:30 | DI.RAD_ITS ---
Exam(s) XR CHEST 2V PA LATERAL EXAM: XR CHEST 2V PA LATERAL CLINICAL HISTORY: chest pain. TECHNIQUE: 2D digital imaging was performed. COMPARISON: CR,XR XR CHEST 2V PA LATERAL from 09/05/2021 FINDINGS: 2 views: Heart size is normal. The mediastinum is not widened. Right lung is clear. However, at the mid level of the left lung there is a very subtle area of incre ased density which was not evident on the 2021 chest x-ray and probably represent subtle infiltrate. No pleural effusions. IMPRESSION: Subtle area of possible infiltrate mid left lung. Recommend chest CT scan. DATA REPOSITORY: RADIATION DOSE DELIVERED:
--- NOTE | 2024-08-09 10:37 | ED.GENADUL_ITS ---
Discharge Plan Disposition Patient Disposition: Home Condition: Stable Discharge Details Clinical Impression: Chest pain Primary Care Provider: Moo Robles ED Provider: Gilmer Li Home Meds and New Rx's Prescriptions: Continued paroxetine HCl 40 mg Tablet 40 mg PO DAILY multivitamin Tablet 1 tab PO QAM melatonin 3 mg Tablet 1.5 mg PO HS lamotrigine 25 mg Tablet 25 mg PO HS Patient Comments: take with 25 mg for total daily dose 225 mg QHS Rx Instructions: total dose 250 mg PO QHS lamotrigine 100 mg Tablet 200 mg PO HS Patient Comments: take with 25 mg for total daily dose 225 mg QHS Rx Instructions: Total dose 250 mg PO QHS naproxen 500 mg Tablet 500 mg PO BID PRN PRN (Reason: Pain) omega 0-byi-pcz-fish oil [Fish Oil] 1,000 mg (120 mg-180 mg) Capsule 1 cap PO TID magnesium oxide 400 mg magnesium Tablet 400 mg PO BID omega-3 fatty acids-fish oil 300-1,000 mg capsule metformin 500 mg tablet 500 mg PO DAILY clonidine HCl 0.1 mg Tablet 0.1 mg PO BID PRN polyethylene glycol 3350 [Miralax] 17 gram Powder In Packet 17 g PO DAILY PRN clozapine 100 mg tablet 200 mg PO QHS omeprazole 20 mg capsule,delayed release(DR/EC) 20 mg PO DAILY hydroxyzine HCl 25 mg tablet 25 mg PO TID PRN PRN vitamin B complex Capsule 1 cap PO DAILY cholecalciferol (vitamin D3) 25 mcg (1,000 unit) Tablet 25 mcg PO DAILY trazodone 100 mg tablet 100 mg PO QHS clozapine 25 mg tablet 50 mg PO QHS Rx Instructions: take with 100 mg for total daily dose 150 mg QHS acetylcysteine [NAC] 600 mg capsule 1,200 mg PO DAILY Patient Comments: Take 2 capsule by mouth twice a day levomefolate calcium [L-Methylfolate] 15 mg tablet 15 mg PO DAILY Patient Comments: Take 1 tablet by mouth once a day Discontinued docusate sodium [Colace] 100 MG capsule 100 mg PO DAILY benztropine 0.5 mg tablet 0.5 mg PO QHS Discharge Instructions Additional Instructions: Follow-up with your primary care provider within 1 week. Your lab work and imaging did not show any concerning findings today. If you have severe worsening pain or difficulty breathing return to the emergency department for evaluation. HPI General Mode of arrival: ambulatory . Date/Time Provider Initiated Documentation: 08/09/24 10:20 . Limitations to Documentation: no limitations . Information obtained by: patient . History of Present Illness 44 year old F presents to the emergency department with the chief complaint of chest pain, described as moderate, Quality is described as aching, and is localized to the chest. Patient extremity. Patient started experiencing this day(s) (1) and it has been constant. No relieving factors improve symptom(s), No exacerbating factors reported . Patient notes no other symptoms.. Patient did receive the following treatments prior to arrival, none Related Data Home Medications ?Medication ?Instructions ?Recorded ?Confirmed paroxetine HCl 40 mg tablet 40 mg PO DAILY 08/10/18 08/09/24 lamotrigine 100 mg tablet 200 mg PO HS 02/27/19 08/09/24 lamotrigine 25 mg tablet 25 mg PO HS 02/27/19 08/09/24 magnesium oxide 400 mg PO BID 02/27/19 08/09/24 melatonin 3 mg tablet 1.5 mg PO HS 02/27/19 08/09/24 multivitamin 1 tab PO QAM 02/27/19 08/09/24 naproxen 500 mg tablet 500 mg PO BID PRN PRN Pain 02/27/19 08/09/24 omega 0-jnp-nvg-fish oil 1,000 mg 1 cap PO TID 02/27/19 08/09/24 (120 mg-180 mg) capsule (Fish Oil) acetylcysteine 600 mg capsule (NAC) 1,200 mg PO DAILY 02/18/20 08/09/24 cholecalciferol (vitamin D3) 25 25 mcg PO DAILY 02/18/20 08/09/24 mcg (1,000 unit) tablet clonidine HCl 0.1 mg tablet 0.1 mg PO BID PRN 02/18/20 08/09/24 clozapine 100 mg tablet 200 mg PO QHS 02/18/20 08/09/24 clozapine 25 mg tablet 50 mg PO QHS 02/18/20 08/09/24 hydroxyzine HCl 25 mg tablet 25 mg PO TID PRN PRN 02/18/20 08/09/24 levomefolate calcium 15 mg tablet 15 mg PO DAILY 02/18/20 08/09/24 (L-Methylfolate) metformin 500 mg tablet 500 mg PO DAILY 02/18/20 08/09/24 omeprazole 20 mg capsule,delayed 20 mg PO DAILY 02/18/20 08/09/24 release polyethylene glycol 3350 17 gram 17 g PO DAILY PRN 02/18/20 08/09/24 oral powder packet (Miralax) trazodone 100 mg tablet 100 mg PO QHS 02/18/20 08/09/24 vitamin B complex 1 cap PO DAILY 02/18/20 08/09/24 omega-3 fatty acids-fish oil 300 cap 09/05/21 09/05/21 mg-1,000 mg capsule Allergies Allergy/AdvReac Type Severity Reaction Status Date / Time niacin (From Niaspan Allergy Intermediate Skin Rash Unverified 08/09/24 10:27 Extended-Release) vilazodone (From Viibryd) AdvReac Intermediate Agitation Unverified 08/09/24 10:27 Penicillins AdvReac Mild RESTLESS Unverified 08/09/24 10:27 General Stated Complaint: Chest Pain [place]: 3 Review of Systems All systems reviewed & are unremarkable except as noted in HPI and below Constitutional Constitutional: Denies chills, Denies fever(s) and Denies weakness Cardiovascular Cardiovascular: Reports chest pain and Denies dyspnea Respiratory Respiratory: Denies cough and Denies dyspnea Gastrointestinal Gastrointestinal: Denies abdominal pain, Denies nausea and Denies vomiting Neurologic Neurologic: Denies weakness Psychiatric Psychiatric: Reports anxiety Exam Const General: no acute distress Orientation: alert [facility] Head: normal to inspection Ears: external ears normal General nose exam: external nose normal Mouth: moist mucous membranes Eyes General: appearance normal, both eyes and all related structures Neck Neck: normal visual inspection Resp Effort & Inspection: normal respiratory effort and able to speak in complete sentences Auscultation: clear to auscultation bilaterally Cardio Jugular venous pressure: no JVD Rate: regular rate Heart Sounds: no murmurs GI Palpation: soft and nontender Skin General skin exam: no rashes or lesions noted Neuro General: patient alert and patient oriented x3 Extrem General: normal to inspection Psych Mental Status: mental status grossly normal Course Vital Signs Vital signs: Vital Signs Temperature 36.7 C 08/09/24 10:21 Pulse 101 H 08/09/24 10:21 Respiratory Rate 18 08/09/24 10:21 Blood Pressure 119/75 08/09/24 10:21 Pulse Oximetry 97 08/09/24 10:21 Temperature 36.7 C 08/09/24 10:21 Temperature Source Oral 08/09/24 10:21 Pulse 101 H 08/09/24 10:21 Respiratory Rate 18 08/09/24 10:21 Blood Pressure 119/75 08/09/24 10:21 Blood Pressure Position Sitting 08/09/24 10:21 Pulse Oximetry 97 08/09/24 10:21 Oxygen Delivery Method Room Air 08/09/24 10:21 Oxygen Flow Rate 0 08/09/24 10:21 Pain Level 7 08/09/24 10:21 Medical Decision Making 44-year-old female with a history of anxiety and depression, does vape but denies drug use, comes in with 1 day of anterior chest aching sensation and left arm tingling. Denies any fevers, cough, difficulty breathing, abdominal pain, no pain with exertion. She is stable on arrival but does appear mildly anxious. She is clear lung sounds, no JVD, no calf tenderness. She has equal peripheral pulses bilaterally denies any tearing back pain. I suspect this could be due to anxiety but will check CBC, CMP and troponins and also obtain a D-dimer to screen for PE. Given the lack of tearing back pain and equal peripheral pulses I doubt dissection. Labs unremarkable including delta troponin. X-ray read as possible infiltrates so CT recommended. Patient is stable and feels better after Ativan. Will add CTA to evaluate for PE versus infiltrate though her D-dimer is negative so I doubt PE CTA negative no infiltrates or PE. Patient is stable. Given reassuring workup I feel she is stable for discharge and follow-up with her PCP, return precautions given Differential Diagnosis Differential Diagnosis: Anxiety, NSTEMI, PE Lab Data Lab results reviewed: Yes I reviewed the patient's lab results. ECG Data Attestation: I personally reviewed and interpreted this ECG (s) as follows: Prior ECG tracings: available for review Interpretation: sinus rate of 94 no stemi Quality:SDOH Health Related Social Needs: No Data to Display PFSH All Active Problems (Updated 08/09/24 @ 13:29 by Gilmer iL MD) Chest pain (Acute) Depression (Chronic) Drug overdose, intentional (Acute) Suicidal behavior with attempted self-injury (Acute) Social History Smoking/Tobacco Use Status: Current every day Tobacco Type: cigarettes Smoking risk assessment performed?: Yes Alcohol Intake: never Drug use: Never Substance use type: does not use Current gender identity: female Do you feel safe at home: Yes Do you feel safe in your relationship?: Yes Additional Social history: 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
[2024-08-09 10:59] LABS: Abs Immature Grans 0.05 10^3/uL (0.0-0.06); Absolute Basophil Count 0.07 10^3/uL (0.0-0.2); Absolute Eosinophil Count 0.44 10^3/uL (0.0-0.7); Absolute Lymphocyte Count 1.74 10^3/uL (1.2-3.4); Absolute Monocyte Count 0.55 10^3/uL (0.1-0.8); Absolute Neutrophil Count 6.54 10^3/uL (1.2-6.7); Basophils % 0.7 %; Eosinophils % 4.7 %; HCT 42.7 % (36.0-46.0); HGB 14.4 g/dL (11.2-15.7); Immature Grans % 0.5 %; Lymphocytes % 18.5 %; MCH 31.3 pg (27.0-33.0); MCHC 33.7 % (32.0-36.0); MCV 93 fL (80-95); Monocytes % 5.9 %; Neutrophils % 69.7 %; Platelet Count 339 10^3/uL (130-400); RDW 12.2 % (11.7-14.6); RDW-SD 41.7 fL; WBC 9.39 10^3/uL (4.4-10.8)
[2024-08-09] MEDS: LORazepam 20 MG/10 ML VIAL IVP (11:03)
[2024-08-09 11:20] LABS: PTT Activated 24.3 sec (20.6-30.2); Prothrombin Time 9.8 sec (9.1-11.1)
[2024-08-09 11:25] LABS: HCG Qual (Serum) Negative
[2024-08-09 11:26] LABS: ALT 40 U/L (14-59); AST 26 U/L (15-37); Albumin 3.8 g/dL (3.4-5.0); Alkaline Phosphatase 130 U/L (46-116); Anion Gap 10.2 mmol/L (3-11); BUN 7 mg/dL (7-18); Bilirubin, Total 0.3 mg/dL (0.2-1.0); CO2 25.8 mmol/L (21.0-32.0); CREATININE 0.8 mg/dL (0.55-1.02); Chloride 104 mmol/L (98-107); D-Dimer 206 ng/mlFEU (<500); Estimated GFR 93.12 (mL/min/1.73m2); Glucose 120 mg/dL (74-106); Magnesium 2.1 mg/dL (1.8-2.4); Potassium 3.3 mmol/L (3.5-5.1); Sodium 140 mmol/L (136-145); TSH (W/Ref FT4) 2.65 uIU/mL (0.36-3.74); Total Protein 7.4 g/dL (6.4-8.2); Troponin I 4 ng/L (<or=51)
--- NOTE | 2024-08-09 12:00 | DI.CT_ITS ---
Exam(s) CT CHEST PE CTA EXAM: CT CHEST PE CTA CLINICAL HISTORY: chest pain, ?infiltrate on xray. TECHNIQUE: Imaging Protocol: CT angiography of the chest was performed using pulmonary embolus tracie col. Multi planar reconstructions were performed. CONTRAST MATERIAL: Intravenous: Omnipaque 350 Contrast volume: 100 cc COMPARISON: CR XR CHEST 2V PA LATERAL from 08/09/2024 FINDINGS: CHEST: PULMONARY ARTERIES: There are no intraluminal filling defects to suggest acute pulmonary emboli. LUNGS: There are no infiltrates nor evidence of pulmonary infarction. There is no mid left lung infi ltrate corresponding to what is described on recent chest x-ray. There are no pleural effusions. MEDIASTINUM: There is no hilar nor mediastinal adenopathy. Partially visualized thyroid appears unrem arkable. CARDIAC: Heart size is upper normal. There is no pericardial effusion.Caliber of the thoracic aorta is within normal limits. No evidence of dissection. There is no significant shift of the interventri cular septum. PARTIALLY VISUALIZED UPPERMOST ABDOMEN: No adrenal masses nor splenomegaly. Hepatic steatosis noted. OSSEOUS: No significant osseous lesions.. IMPRESSION: 1. No evidence of acute pulmonary emboli. No evidence of pulmonary infarction.No infiltrates nor ple ural effusions nor ominous pulmonary nodules. 2. No significant intrathoracic adenopathy. Report called by myself to ER 08/09/2024 at 1:38 p.m. RADIATION DOSE DELIVERED: 157.15mGy.cm Total DLP DATA REPOSITORY: All CT scans at this facility are submitted to the National Radiology Data Registry (NRDR) Dose Index Registry (DIR) with the [employer] ([employer]). RADIATION OPTIMIZATION: All CT scans at this facility use at least one of these dose optimization te chniques: automated exposure control; mA and/or kV adjustment per patient size (includes targeted exa ms where dose is matched to clinical indication); or iterative reconstruction.
[2024-08-09 12:14] LABS: Troponin I < 4 ng/L (<or=51)
[2024-08-09] MEDS: Normal Saline - Diluent 50 ML VIAL IJ (12:34)
[2024-08-09] MEDS: Omnipaque 350 MG/ML 100 ML BTL IJ (12:39)
== END 2024-08-09 13:51 | disposition home or self-care (01) ==
PROVIDERS: Emergency Provider Emergency Medicine; PCP Family Medicine
DX: R07.9 Chest pain, unspecified (principal); R11.0 Nausea; F17.210 Nicotine dependence, cigarettes, uncomplicated; F17.290 Nicotine dependence, other tobacco product, uncomplicated
CPT/HCPCS: 71275; 80053; 93005; 99285; 71046; 83735; 84443; 84484; 84703; 85025; 85379; 85610; 85730; 93010; 99284; J2060; J3490

== ENCOUNTER 2024-09-04 04:01 | Outpatient (CLI) | payer MEDICARE, MEDICAID, SELFPAY ==
[2024-09-04 15:11] LABS: Abs Immature Grans 0.05 10^3/uL (0.0-0.06); HCT 41.3 % (36.0-46.0); HGB 14.3 g/dL (11.2-15.7); Immature Grans % 0.4 %; MCH 31.7 pg (27.0-33.0); MCHC 34.6 % (32.0-36.0); MCV 92 fL (80-95); MPV 8.8 fL (8.0-11.0); Platelet Count 331 10^3/uL (130-400); RBC 4.51 10^6/uL (3.93-5.22); RDW 12.2 % (11.7-14.6); RDW-SD 41.0 fL; WBC 11.53 10^3/uL (4.4-10.8)
== END 2024-09-04 04:02 | disposition home or self-care (01) ==
LOC: LBO 04:02
PROVIDERS: PCP Family Medicine; Visit Provider Nurse Practitioner Psychiatric/Mental Health
DX: F25.1 Schizoaffective disorder, depressive type (principal)
CPT/HCPCS: 36415; 85025

== ENCOUNTER 2024-10-01 04:56 | Outpatient (CLI) | payer MEDICARE, MEDICAID, SELFPAY ==
[2024-10-01 14:56] LABS: Abs Immature Grans 0.04 10^3/uL (0.0-0.06); HCT 42.9 % (36.0-46.0); HGB 14.8 g/dL (11.2-15.7); Immature Grans % 0.5 %; MCH 31.4 pg (27.0-33.0); MCHC 34.5 % (32.0-36.0); MCV 91 fL (80-95); MPV 8.8 fL (8.0-11.0); Platelet Count 396 10^3/uL (130-400); RBC 4.71 10^6/uL (3.93-5.22); RDW 11.9 % (11.7-14.6); RDW-SD 40.1 fL; WBC 8.81 10^3/uL (4.4-10.8)
== END 2024-10-01 04:57 | disposition home or self-care (01) ==
LOC: LBO 04:56
PROVIDERS: PCP Family Medicine; Visit Provider Nurse Practitioner Psychiatric/Mental Health
DX: Z79.899 Other long term (current) drug therapy (principal)
CPT/HCPCS: 36415; 85025

== ENCOUNTER 2024-10-31 04:21 | Outpatient (CLI) | payer MEDICARE, MEDICAID, SELFPAY ==
[2024-10-31 12:20] LABS: Abs Immature Grans 0.02 10^3/uL (0.0-0.06); HCT 41.2 % (36.0-46.0); HGB 13.8 g/dL (11.2-15.7); Immature Grans % 0.3 %; MCH 30.9 pg (27.0-33.0); MCHC 33.5 % (32.0-36.0); MCV 92 fL (80-95); MPV 9.2 fL (8.0-11.0); Platelet Count 358 10^3/uL (130-400); RBC 4.46 10^6/uL (3.93-5.22); RDW 12.4 % (11.7-14.6); RDW-SD 42.2 fL; WBC 7.61 10^3/uL (4.4-10.8)
== END 2024-10-31 04:22 | disposition home or self-care (01) ==
LOC: LOS 04:21
PROVIDERS: PCP Family Medicine; Visit Provider Nurse Practitioner Psychiatric/Mental Health
DX: Z79.899 Other long term (current) drug therapy (principal)
CPT/HCPCS: 36415; 85025

== ENCOUNTER 2024-11-12 17:41 | Outpatient (REF) | payer MEDICARE, MEDICAID, SELFPAY ==
[2024-11-12 19:23] LABS: Anion Gap 10.5 mmol/L (3-11); BUN 6 mg/dL (7-18); CO2 24.5 mmol/L (21.0-32.0); Calcium 9.5 mg/dL (8.5-10.1); Calculated LDL 104 mg/dL (<100); Chloride 104 mmol/L (98-107); Cholesterol 171 mg/dL (<200); Estimated GFR 113.44 (mL/min/1.73m2); Glucose 115 mg/dL (74-106); HDL Cholesterol 36 mg/dL (>or=50); Potassium 4.6 mmol/L (3.5-5.1); Sodium 139 mmol/L (136-145); Triglyceride 155 mg/dL (<150)
== END 2024-11-12 17:42 | disposition home or self-care (01) ==
LOC: NCHCN 17:41
PROVIDERS: PCP Family Medicine; Visit Provider Family Medicine
DX: E78.1 Pure hyperglyceridemia (principal)
CPT/HCPCS: 80048; 80061

== ENCOUNTER 2024-12-03 02:53 | Outpatient (CLI) | payer MEDICARE, MEDICAID, SELFPAY ==
[2024-12-03 14:15] LABS: Abs Immature Grans 0.02 10^3/uL (0.0-0.06); HCT 42.7 % (36.0-46.0); HGB 14.9 g/dL (11.2-15.7); Immature Grans % 0.2 %; MCH 32.3 pg (27.0-33.0); MCHC 34.9 % (32.0-36.0); MCV 93 fL (80-95); MPV 9.3 fL (8.0-11.0); Platelet Count 414 10^3/uL (130-400); RBC 4.61 10^6/uL (3.93-5.22); RDW 12.2 % (11.7-14.6); RDW-SD 41.7 fL; WBC 9.21 10^3/uL (4.4-10.8)
== END 2024-12-03 02:54 | disposition home or self-care (01) ==
LOC: LOS 02:53
PROVIDERS: PCP Family Medicine; Visit Provider Nurse Practitioner Psychiatric/Mental Health
DX: Z79.899 Other long term (current) drug therapy (principal)
CPT/HCPCS: 36415; 85025

== ENCOUNTER 2025-01-03 00:53 | Outpatient (CLI) | payer MEDICARE, MEDICAID, SELFPAY ==
[2025-01-03 14:51] LABS: Abs Immature Grans 0.04 10^3/uL (0.0-0.06); HCT 42.5 % (36.0-46.0); HGB 14.1 g/dL (11.2-15.7); Immature Grans % 0.5 %; MCH 30.9 pg (27.0-33.0); MCHC 33.2 % (32.0-36.0); MCV 93 fL (80-95); MPV 9.1 fL (8.0-11.0); Platelet Count 403 10^3/uL (130-400); RBC 4.57 10^6/uL (3.93-5.22); RDW 12.6 % (11.7-14.6); RDW-SD 42.7 fL; WBC 8.37 10^3/uL (4.4-10.8)
== END 2025-01-03 00:54 | disposition home or self-care (01) ==
LOC: LOS 00:53
PROVIDERS: PCP Family Medicine; Visit Provider Nurse Practitioner Psychiatric/Mental Health
DX: Z79.899 Other long term (current) drug therapy (principal)
CPT/HCPCS: 36415; 85025

== ENCOUNTER 2025-02-06 01:30 | Outpatient (CLI) | payer MEDICARE, MEDICAID, SELFPAY ==
[2025-02-06 15:58] LABS: Abs Immature Grans 0.03 10^3/uL (0.0-0.06); HCT 43.5 % (36.0-46.0); HGB 14.7 g/dL (11.2-15.7); Immature Grans % 0.4 %; MCH 32.0 pg (27.0-33.0); MCHC 33.8 % (32.0-36.0); MCV 95 fL (80-95); MPV 9.1 fL (8.0-11.0); Platelet Count 427 10^3/uL (130-400); RBC 4.60 10^6/uL (3.93-5.22); RDW 12.7 % (11.7-14.6); RDW-SD 43.7 fL; WBC 7.96 10^3/uL (4.4-10.8)
== END 2025-02-06 01:31 | disposition home or self-care (01) ==
LOC: LOS 01:30
PROVIDERS: PCP Family Medicine; Visit Provider Nurse Practitioner Psychiatric/Mental Health
DX: Z79.899 Other long term (current) drug therapy (principal)
CPT/HCPCS: 36415; 85025